=== PATIENT | female | born 1950 | race Caucasian/White ===

== ENCOUNTER → 2017-06-20 | Outpatient (CLI) | payer MEDICARE, BC ==
--- NOTE | 2017-06-20 07:52 | US ---
EXAMINATION TYPE: US abdomen complete DATE OF EXAM: 06/20/2017 COMPARISON: NONE CLINICAL HISTORY: R94.5 Abnormal liver function test. EXAM MEASUREMENTS: Liver Length: 13.3 cm Gallbladder Wall: Surgically absent CBD: 0.5 cm Spleen: 9.6 cm Right Kidney: 9.5 x 4.0 x 4.1 cm Pancreas: wnl Liver: wnl Gallbladder: Surgically absent Evidence for sonographic Crocker's sign: no CBD: wnl Spleen: wnl Right Kidney: inferior pole obscured by bowel gas Left Kidney: wnl Upper IVC: wnl Abd Aorta: wnl Limited views of the pancreas are normal. The liver is normal in size without evidence of biliary dilatation. The gallbladder is been removed. This common hepatic duct measures 4.9 mm. Both kidneys are normal. The spleen is normal in size. Visualized portions of aorta and IVC are normal. IMPRESSION: STATUS POST CHOLECYSTECTOMY.
== END | disposition home or self-care (01) ==
LOC: RADUSWWP 06:51
PROVIDERS: ATTEND Family Medicine
DX: R94.5 Abnormal results of liver function studies (principal); Z90.49 Acquired absence of other specified parts of digestive tract
CPT/HCPCS: 76700

== ENCOUNTER → 2017-07-07 | Outpatient (CLI) | payer MEDICARE, BC ==
[2017-07-07 13:11] LABS: Basophils % (A) 1 %; CH 29.3; CHCM 32.9; Eosinophils % (A) 0 %; HCT 38.9 % (34.0-46.0); HDW 2.43; HGB 12.2 gm/dL (11.4-16.0); Luc # (Auto) 0.14; Luc % (Auto) 3; Lymphocytes # (A) 0.9 k/uL (1.0-4.8); Lymphocytes % (A) 19 %; MCHC 31.2 g/dL (31.0-37.0); MCV 89.7 fL (80.0-100.0); Mean Platelet Volume 7.5; Monocytes # (A) 0.2 k/uL (0-1.0); Monocytes % (A) 5 %; Neutrophils # (A) 3.2 k/uL (1.3-7.7); Neutrophils % (A) 71 %; RBC 4.34 m/uL (3.80-5.40); RDW 14.3 % (11.5-15.5); WBC 4.4 k/uL (3.8-10.6); WBC (Perox) 4.72
[2017-07-07 13:14] LABS: Appearance,Urine Clear (Clear); Bilirubin,Urine Negative (Negative); Glucose,Urine (UA) Negative (Negative); Ketones,Urine Negative (Negative); Leukocyte Esterase,Urine Negative (Negative); Nitrite,Urine Negative (Negative); Protein,Urine Negative (Negative); Specific Gravity,Urine 1.005 (1.001-1.035); UA Billing (MACRO vs. MICRO) CHEM; Urobilinogen,Urine <2.0 mg/dL (<2.0)
[2017-07-07 13:19] LABS: Anion Gap 9 mmol/L; Blood Urea Nitrogen 20 mg/dL (7-17); Calcium 9.4 mg/dL (8.4-10.2); Carbon Dioxide 26 mmol/L (22-30); Chloride 103 mmol/L (98-107); Glucose 81 mg/dL (74-99); Non-African American GFR(MDRD) 53 (>60 ml/min/1.73 sqM); Partial Thromboplastin Time 27.4 sec (22.0-30.0); Potassium 4.4 mmol/L (3.5-5.1); Prothrombin Time 10.4 sec (9.0-12.0); Sodium 138 mmol/L (137-145)
--- NOTE | 2017-07-07 14:18 | XR ---
EXAMINATION TYPE: XR chest 2V DATE OF EXAM: 07/07/2017 COMPARISON: NONE HISTORY: Surgical planning. Clearance. TECHNIQUE: Frontal and lateral views of the chest are obtained. FINDINGS: There is no focal air space opacity, pleural effusion, or pneumothorax seen. The cardiac silhouette size is within normal limits. The osseous structures are intact. IMPRESSION: No acute cardiopulmonary process.
== END | disposition home or self-care (01) ==
LOC: LABPAT 12:29
PROVIDERS: ATTEND Orthopaedic Surgery Orthopaedic Surgery of the Spine
DX: Z01.818 Encounter for other preprocedural examination (principal); Z01.810 Encounter for preprocedural cardiovascular examination; M48.02 Spinal stenosis, cervical region; G95.9 Disease of spinal cord, unspecified; Z51.81 Encounter for therapeutic drug level monitoring; Z79.01 Long term (current) use of anticoagulants
CPT/HCPCS: 71020; 80048; 81003; 85025; 85610; 85730; 86850; 86900; 86901

== ENCOUNTER 2017-07-16 10:37 | Inpatient (IN) | payer MEDICARE, BC ==
[2017-07-09 12:33] VITALS: BMI 32.8
[~2017-07-16 10:37] MED LIST: BACITRACIN 50,000 UNIT, POLYMYXIN B 500,000 UNIT in SODIUM CHLORIDE 0.9% IRRIGATIO 1,00... IRRIGATION ONE; DEXAMETHASONE SOD PHOSPHATE 10 MG/ML 1 ML VIAL IV ONE; HYDROmorphone 1 MG/ML 1 ML SYRINGE IVP PRN; LACTATED RINGERS 1,000 ML IV SCH; ONDANSETRON 4 MG/2 ML VIAL IVP ONE; ceFAZolin 2 GM in SODIUM CHLORIDE 0.9% 100 ML IVPB ONE
[2017-07-16] MEDS ORDERED: LIDOCAINE 1% 20 ML VIAL (10MG/ML) FOR IV START INTRADERMA ONE (10:59)
[2017-07-16] MEDS ORDERED: ROCURONIUM BROMIDE 10 MG/ML 10 ML VIAL IV ONE (13:12)
[2017-07-16] MEDS ORDERED: NEOSTIGMINE 1 MG/ML 10 ML VIAL ONE (13:12)
[2017-07-16] MEDS ORDERED: DEXAMETHASONE SOD PHOS (MDV) 100 MG/10 ML VIAL ONE (13:12)
[2017-07-16] MEDS ORDERED: SUCCINYLCHOLINE CHLORIDE 100 MG/5 ML SYR IV ONE (13:12)
[2017-07-16] MEDS ORDERED: MIDAZOLAM 2 MG/2 ML VIAL ONE (13:12)
[2017-07-16] MEDS ORDERED: fentaNYL (PF) 50 MCG/ML 2 ML AMP ONE (13:12)
[2017-07-16] MEDS ORDERED: GLYCOPYRROLATE 0.2 MG/ML 2 ML VIAL ONE (13:12)
[2017-07-16] MEDS ORDERED: PROPOFOL 10 MG/ML 20 ML VIAL IV ONE (13:12)
[2017-07-16] MEDS ORDERED: LIDOCAINE 1% INJ 10MG/ML (20 ML MDV) ONE (13:12)
[2017-07-16] MEDS ORDERED: ePHEDrine SULFATE/0.9% NACL/PF 50 MG/5 ML SYRINGE IV ONE (13:12)
[2017-07-16] MEDS ORDERED: GELATIN SPONGE,ABSORB (LARGE) 1 EACH SPONGE TOPICAL ONE (13:42)
[2017-07-16] MEDS ORDERED: BUPIVACAINE (PF) 0.5% 30 ML VIAL SQ ONE (13:42)
[2017-07-16] MEDS ORDERED: THROMBIN (BOVINE) 5,000 UNIT VIAL TOPICAL ONE (13:42)
[2017-07-16] MEDS ORDERED: LACTATED RINGERS 1,000 ML IV ONE (14:01)
--- NOTE | 2017-07-16 14:14 | XR ---
EXAMINATION TYPE: XR cervical spine 1V DATE OF EXAM: 07/16/2017 COMPARISON: NONE HISTORY: Intraoperative localization TECHNIQUE: Single lateral views submitted FINDINGS: Suggestion of tracheal tube. Surgical metallic instrument seen along the disc interspace C4 -C5. Multilevel facet arthropathy and degenerative disc disease noted. Slight anterolisthesis of C3 o n C4 noted. IMPRESSION: 1. Intraoperative localization.
--- NOTE | 2017-07-16 15:28 | XR ---
EXAMINATION TYPE: XR cervical spine 1V DATE OF EXAM: 07/16/2017 COMPARISON: NONE HISTORY: Postop hardware TECHNIQUE: 1 view FINDINGS: Postsurgical changes somewhat limited assessment due to overlying soft tissue artifact but appears in near-anatomic alignment. Correlate for endotracheal tube. Prevertebral soft tissue structures within normal limits. IMPRESSION: 1. Postoperative change in near anatomic alignment.
[2017-07-16] MEDS ORDERED: HYDROmorphone 1 MG/ML 1 ML SYRINGE IVP PRN (15:30)
[2017-07-16] MEDS ORDERED: MAGNESIUM HYDROXIDE 2,400 MG/10 ML CUP PO PRN (15:30)
[2017-07-16] MEDS ORDERED: ONDANSETRON 4 MG/2 ML VIAL IVP PRN (15:31)
[2017-07-16] MEDS ORDERED: IPRATROPIUM BROMIDE 0.06% NASAL SPRAY (15 ML) NASAL PRN (15:32)
--- NOTE | 2017-07-16 15:41 | P.OP ---
Date of Procedure: 07/16/17 Preoperative Diagnosis: Cervical stenosis C4 5 C5 6 C6 7, anterolisthesis C4 5, severe disc degeneration C5 5 6 C6 7, herniated nucleus pulposis C4 5 C5 6 C6 7, neck pain, upper extremity radiculopathy Postoperative Diagnosis: Same Procedure(s) Performed: Implants: Anesthesia: GETA Pathology: none sent Condition: stable Disposition: PACU Indications for Procedure: Operative Findings: Description of Procedure: BRIEF OPERATIVE NOTE Preoperative Diagnosis: Cervical stenosis C4 5 C5 6 C6 7, spinal listhesis C4 5 , severe disc degeneration C5 6 C6 7, herniated nucleus was his C4 5 C5 6 C6 7, neck pain with upper extremity radiculopathy Postoperative Diagnosis: Same Procedure: Anterior cervical decompression with discectomy and fusion C4 5 C5 6 C6 7 Placement of interbody graft C4 5 C5 6 C6 7 Application of anterior cervical plate C4 5 6 7 Surgeon: Dr. Powell Animated Cartoons Painter: Jesus VILLATORO who is present throughout the entire the case persistence during positioning, dissection, exposure, visualization, and all crucial elements of the case as well as closure. Anesthesia: General anesthesia Estimated blood loss: Approximately 100 mL Complications: None apparent Components implanted: K2M Tenino anterior cervical plate system with 4 screws measuring 12 mm, and 3 interbody Vikos allograft bone graft and 1 mL of DBX bone putty, Disposition: To recovery room in good stable condition. OPERATIVE INDICATIONS The patient has had long-standing issues in their neck and upper extremities. she had severe disc degeneration with evidence of spider abdomen mildly with kyphosis and significant disc herniation with stenosis at multiple levels. Her findings correlated well with her neck and upper extremity symptoms. The patient has been through conservative treatment. She is not having any prolonged benefit despite aggressive conservative treatment. We discussed various treatment options including surgery, and the patient wishes to proceed with surgery We discussed the risk, patient's alternatives and benefits of surgery including but not limited to, risk of bleeding risk of infection, risk of need for further surgery, risk of decreased, loss of motion, muscle function , malunion nonunion, hardware failure, nerve damage, paralysis, heart attack, and . OPERATIVE SUMMARY After discussing all the risks, patient alternatives and benefits at length, the patient elected to proceed with surgical intervention, signed informed consent, and presented for their procedure. The patient was seen and examined in the preoperative holding area and the surgical site was marked. The patient was given antibiotics and brought to the operating room. The patient was positioned on the operating room table in a supine position being careful to pad any bony prominences and pressure points. The patient was sedated and intubated by anesthesia in standard fashion. Once the airway and C- spine were stabilized the patient's arms were padded and tucked at her side, with her shoulders gently taped. The head was placed in a donut pad with the neck in good neutral alignment and position. We were careful to maintain the patient's cervical spine and good neutral alignment and position throughout. The patient was prepped and draped in a normal standard fashion. An appropriate timeout and keystone protocol performed. We were able to proceed with the surgery. The local wound area was infiltrated with local anesthetic. An incision was made transversely approximately 2-1/2 cm over the appropriate levels Over C6. Dissection was taken down subcutaneously to the level of the platysma which was split in line with its fibers. Dissection was taken with a carotid approach, with the trachea and esophagus medial and the carotid sheath laterally. We dissected down to the anterior surface of the vertebral bodies From C4 to C7. Intraoperative x-ray was taken which showed a marker at the appropriate level At C4 5. With the appropriate level positively confirmed, we were able to proceed with discectomy at the appropriate levels First at C6 7 than at C5 6 bed C4 5. All of the operative levels were exposed appropriately. The patient had all their twitches back, and there was no evidence of recurrent laryngeal issue. The wound was copiously irrigated and suctioned dry as had been done periodically throughout the case. At the appropriate level/levels, I established an annulotomy with an 11 blade scalpel. A discectomy was performed with a combination of pituitary rongeurs, curettes , a high-speed bur, and Kerrison rongeurs. the patient had severe disc degeneration particularly at C5 6 and C6 7 with near-complete disc height loss. I was able get good opening of the space and discectomy to expose posterior longitudinal ligament The posterior longitudinal ligament was taken down as were any posterior osteophytes. This gave good central and bilateral foraminal decompression. the patient had had severe stenosis which was remedied with decompression. There is no evidence of any dural tear or leak. The endplates were prepared with a high-speed bur. With the endplates in good parallel position, I was able to size for the appropriate size interbody graft. The wound was irrigated and suctioned dry the graft was prepared and malleted into position. It had good alignment and position with the anterior surface flush with the anterior surface of the vertebral bodies. This was done similarly the appropriate levels First at C6 7 than at C5 6 than at C4 5. With the grafts intact, I was able to measure and contour and appropriate sized plate. The plate was positioned at the midline over the appropriate levels. Screw holes were established with a hand drill and drill guide. The patient has relatively small stature and we had to use a plate where the screw alignment was able to match up well with the most cephalad and most caudad vertebral bodies. The plates did not have good alignment with the vertebral bodies at C5 and C6. I was able place 2 screws at C4 and C7 in good alignment and good position with excellent bony purchase. Screws were placed in good alignment and position with excellent bony purchase. They were seated under the locking device. The construct was checked and found to be stable. Intraoperative x- ray was taken which showed good alignment and position of the implants at the appropriate levels From C4 to C7. There was no evidence of any dural tear or leak. Good hemostasis was maintained. The wound was copiously irrigated and suctioned dry as had been done periodically throughout the case. The platysma was closed with absorbable suture. The subcutaneous tissue was closed. The subcuticular tissue was closed with absorbable suture. The wound was cleaned and dried and dressed appropriately. A soft cervical collar was placed appropriately. The patient was woken up by anesthesia, extubated, transferred back gently to their hospital bed and brought to the recovery room in good stable condition. The patient will be admitted to the hospital for appropriate postoperative care , medical management and monitoring. We will continue to follow them closely about the postoperative course.
[2017-07-16] MEDS: DIAZEPAM 5 MG TAB PO PRN (16:51)
[2017-07-16] MEDS: ceFAZolin 2 GM in SODIUM CHLORIDE 0.9% 100 ML IVPB SCH (17:19)
[2017-07-16] MEDS: BALSALAZIDE DISODIUM 750 MG CAPSULE PO SCH ×2 (17:24→22:46)
[2017-07-16] MEDS: HYDROmorphone 1 MG/ML 1 ML SYRINGE IVP PRN ×2 (18:20→21:37)
[2017-07-16] MEDS: SODIUM CHLORIDE 0.9% 1,000 ML IV SCH (19:25)
[2017-07-16] MEDS: busPIRone HCl 10 MG TAB PO SCH (19:36)
[2017-07-16] MEDS: LISINOPRIL 20 MG TAB PO SCH (19:37)
[2017-07-16] MEDS: cycloSPORINE 0.05% OPHTH 0.4 ML DROPERETTE BOTH EYES SCH (19:38)
[2017-07-16] MEDS: BENZOCAINE/MENTHOL LOZENG 1 EACH LOZENGE MUCOUS MEM PRN ×2 (19:39→22:56)
[2017-07-16] MEDS: traMADol 50 MG TAB PO SCH (20:49)
[2017-07-16] MEDS ORDERED: FLUTICASONE 50MCG/SPRAY NASAL 16GM EA NOSTRIL SCH (21:00)
[2017-07-16] MEDS ORDERED: ZOLPIDEM 5 MG TAB PO SCH (21:00)
[2017-07-17] MEDS: ceFAZolin 2 GM in SODIUM CHLORIDE 0.9% 100 ML IVPB SCH (00:17)
[2017-07-17] MEDS: HYDROmorphone 1 MG/ML 1 ML SYRINGE IVP PRN ×2 (01:18→05:52)
[2017-07-17 03:26] VITALS: RESP 17
[2017-07-17] MEDS: BENZOCAINE/MENTHOL LOZENG 1 EACH LOZENGE MUCOUS MEM PRN (04:18)
[2017-07-17] MEDS: SODIUM CHLORIDE 0.9% 1,000 ML IV SCH (05:52)
[2017-07-17] MEDS ORDERED: PANTOPRAZOLE 40 MG TABLET PO SCH (07:30)
[2017-07-17 07:43] VITALS: BP 120/65; PULSE 82; TEMP 98.1
[2017-07-17] MEDS: HYDROcodone/APAP 5-325MG 1 EACH TAB PO PRN ×2 (08:12→12:29)
[2017-07-17] MEDS: traMADol 50 MG TAB PO SCH (08:13)
[2017-07-17] MEDS: BALSALAZIDE DISODIUM 750 MG CAPSULE PO SCH (08:14)
[2017-07-17] MEDS: busPIRone HCl 10 MG TAB PO SCH (08:14)
[2017-07-17] MEDS: cycloSPORINE 0.05% OPHTH 0.4 ML DROPERETTE BOTH EYES SCH (08:15)
[2017-07-17] MEDS: LISINOPRIL 20 MG TAB PO SCH (08:15)
[2017-07-17] MEDS ORDERED: SENNOSIDES-DOCUSATE SODIUM 1 EACH TAB PO SCH (09:00)
[2017-07-17] MEDS ORDERED: ESCITALOPRAM 10 MG TAB PO SCH (09:00)
[2017-07-17] MEDS ORDERED: LORATADINE 10 MG TAB PO SCH (09:00)
--- NOTE | 2017-07-17 09:29 | P.DS ---
Providers Date of admission: 07/16/17 10:37 Attending physician: Brian Powell Primary care physician: Samantha Guerrero MD Hospital Course: The patient presented on the day of admission as per his operative note. She underwent anterior cervical discectomy and fusion at C4 5 C5 6 C6 7 for severe stenosis with myelopathy and radiculopathy. She feels that she is making good improvement already and has improvement in her upper extremities bilaterally. Physical Exam The incision site is clean dry and intact. There is no erythema no drainage. There is no purulence no evidence of infection. Her neck is soft and supple. She is in a soft collar and is moving appropriately. Abdomen soft and nontender. Chest has good excursion with deep inspiration and expiration. The patient has active and passive range of motion intact at the upper and lower extremities. There is no acute change in neurologic status. 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 The patient is making good progress thus far and feels that she has had improvement in her upper extremity is already. The patient has been making good progress postoperatively. They have completed the prophylactic antibiotics without any signs or symptoms of infection. The patient has been able to advance their diet, and is tolerating diet adequately. The pain was initially controlled with IV medications and is now controlled appropriately with oral medications. The patient has been able to increase their mobilization. I would like patient to have a hard cervical collar to be worn when she is doing activities and we will provide a prescription for this for her. Otherwise she should be in her soft collar when she is resting sitting or in bed. The patient has progressed appropriately. I think they are in good stable condition for discharge today. They will be sent home with appropriate prescriptions. I answered their questions to the best of my ability in a language that they can understand and they are agreeable with the plan. They will follow up as directed in approximately 2 weeks or sooner if she is having any problems. Patient Condition at Discharge: Good Plan - Discharge Summary New Discharge Prescriptions: No Action Enalapril Maleate [Vasotec] 10 mg PO BID Omeprazole [PriLOSEC] 20 mg PO AC-BRKFST Desloratadine [Clarinex] 5 mg PO DAILY Ipratropium [place] 0.06%Nasal [Atrovent Nasal] 2 spray NASAL BID PRN PRN Reason: Allergy Symptoms Ciclesonide [Omnaris] 12.5 gm NS HS cycloSPORINE [Restasis] 1 drop BOTH EYES BID Mirvaso 1 applicate TOPICAL QAM Finacea 1 applicate TOPICAL HS traMADol HCL [Ultram] 50 mg PO BID busPIRone HCl [Buspar] 10 mg PO BID Escitalopram [Lexapro] 10 mg PO DAILY Zolpidem Tartrate [Ambien] 5 mg PO HS Mesalamine [Lialda] 1.2 gm PO BID Alclometasone Dipropionate 1 applic TOPICAL DAILY Discharge Medication List Ciclesonide [Omnaris] 12.5 gm NS HS 10/26/15 [History] Desloratadine [Clarinex] 5 mg PO DAILY 10/26/15 [History] Enalapril Maleate [Vasotec] 10 mg PO BID 10/26/15 [History] Finacea 1 applicate TOPICAL HS 10/26/15 [History] Ipratropium [place] 0.06%Nasal [Atrovent Nasal] 2 spray NASAL BID PRN 10/26/15 [ History] Mirvaso 1 applicate TOPICAL QAM 10/26/15 [History] Omeprazole [PriLOSEC] 20 mg PO AC-BRKFST 10/26/15 [History] cycloSPORINE [Restasis] 1 drop BOTH EYES BID 10/26/15 [History] Alclometasone Dipropionate 1 applic TOPICAL DAILY 07/07/17 [History] Escitalopram [Lexapro] 10 mg PO DAILY 07/07/17 [History] Mesalamine [Lialda] 1.2 gm PO BID 07/07/17 [History] Zolpidem Tartrate [Ambien] 5 mg PO HS 07/07/17 [History] busPIRone HCl [Buspar] 10 mg PO BID 07/07/17 [History] traMADol HCL [Ultram] 50 mg PO BID 07/07/17 [History]
[2017-07-17] MEDS: DIAZEPAM 5 MG TAB PO PRN (10:20)
== END 2017-07-17 12:45 | disposition home or self-care (01) | DRG 472 ==
LOC: 2ORMAIN 10:37 → 3SUR 15:50
PROVIDERS: ADMIT Orthopaedic Surgery Orthopaedic Surgery of the Spine; ATTEND Orthopaedic Surgery Orthopaedic Surgery of the Spine
PROC: 0RB30ZZ Excision of Cervical Vertebral Disc, Open Approach (ICD-10-PCS; 2017-07-16)
PROC: 0RG20K0 Fusion of 2 or more Cervical Vertebral Joints with Nonautologous Tissue Substitute, Anterior Approach, Anterior Column, Open Approach (ICD-10-PCS; principal; 2017-07-16 12:30)
DX: M50.021 Cervical disc disorder at C4-C5 level with myelopathy (principal); K51.90 Ulcerative colitis, unspecified, without complications; M35.00 Sjogren syndrome, unspecified; I10 Essential (primary) hypertension; M48.02 Spinal stenosis, cervical region; M43.12 Spondylolisthesis, cervical region; F41.9 Anxiety disorder, unspecified; M19.91 Primary osteoarthritis, unspecified site; E78.5 Hyperlipidemia, unspecified; F32.9 Major depressive disorder, single episode, unspecified; Z79.899 Other long term (current) drug therapy; Z91.048 Other nonmedicinal substance allergy status; Z98.1 Arthrodesis status; Z90.49 Acquired absence of other specified parts of digestive tract; Z98.42 Cataract extraction status, left eye; Z98.41 Cataract extraction status, right eye; Z88.2 Allergy status to sulfonamides
CPT/HCPCS: 72020; 86850; 86900; 86901

== ENCOUNTER → 2018-01-08 | Outpatient (CLI) | payer MEDICARE, BC ==
[2018-01-08 09:15] LABS: Basophils % (A) 0 %; Eosinophils # (A) 0.4 k/uL (0-0.7); Eosinophils % (A) 8 %; HCT 38.6 % (34.0-46.0); HGB 12.3 gm/dL (11.4-16.0); Lymphocytes % (A) 21 %; MCH 27.9 pg (25.0-35.0); MCV 87.3 fL (80.0-100.0); Mean Platelet Volume 7.3; Monocytes # (A) 0.3 k/uL (0-1.0); Monocytes % (A) 5 %; Neutrophils # (A) 3.2 k/uL (1.3-7.7); Neutrophils % (A) 64 %; Platelet Count 263 k/uL (150-450); RBC 4.42 m/uL (3.80-5.40); RDW 13.8 % (11.5-15.5)
[2018-01-08 09:52] LABS: Anion Gap 12 mmol/L; Blood Urea Nitrogen 17 mg/dL (7-17); Calcium 9.5 mg/dL (8.4-10.2); Carbon Dioxide 25 mmol/L (22-30); Chloride 105 mmol/L (98-107); Glucose 89 mg/dL (74-99); Potassium 4.3 mmol/L (3.5-5.1); Sodium 142 mmol/L (137-145)
== END | disposition home or self-care (01) ==
LOC: LABWHC1 08:44
PROVIDERS: ATTEND Family Medicine
DX: Z01.812 Encounter for preprocedural laboratory examination (principal); N18.3 Chronic kidney disease, stage 3 (moderate)
CPT/HCPCS: 36415; 80048; 85025

== ENCOUNTER → 2018-10-28 | Outpatient (CLI) | payer MEDICARE, BC ==
[2018-10-28 11:33] LABS: Basophils % (A) 0 %; Eosinophils # (A) 0.4 k/uL (0-0.7); Eosinophils % (A) 9 %; HCT 38.1 % (34.0-46.0); HGB 12.1 gm/dL (11.4-16.0); Lymphocytes # (A) 0.6 k/uL (1.0-4.8); Lymphocytes % (A) 15 %; MCH 28.7 pg (25.0-35.0); MCHC 31.9 g/dL (31.0-37.0); MCV 90.1 fL (80.0-100.0); Mean Platelet Volume 6.5; Monocytes # (A) 0.1 k/uL (0-1.0); Monocytes % (A) 3 %; Neutrophils # (A) 2.8 k/uL (1.3-7.7); Neutrophils % (A) 71 %; Platelet Count 266 k/uL (150-450); RBC 4.22 m/uL (3.80-5.40); RDW 14.1 % (11.5-15.5); WBC 3.9 k/uL (3.8-10.6)
[2018-10-28 16:05] LABS: Vitamin D 25 Hydroxy 29.3 ng/mL (30.0-100.0)
[2018-10-28 16:08] LABS: Albumin 3.8 g/dL (3.80-4.90); Albumin/Globulin Ratio 1.31 (1.20-2.10); Anion Gap 5.2 mmol/L (4.00-12.00); Carbon Dioxide 27.8 mmol/L (21.6-31.8); Globulin 2.9 g/dL (2.1-3.7); LDL Cholesterol,Calculated 98.4 mg/dL (0.0-131.0); Magnesium 1.7 mg/dL (1.5-2.4); Potassium 4.4 mmol/L (3.5-5.5); Total Bilirubin 0.6 mg/dL (0.3-1.2); Total Protein 6.7 g/dL (6.2-8.2); Uric Acid 7.7 mg/dL (2.9-7.7); VLDL Calculation 10.6 mg/dL (5.00-40.00)
[2018-10-28 16:17] LABS: T4, Free (Free Thyroxine) 1.2 ng/dL (0.80-1.80)
[2018-10-28 17:37] LABS: Parathyroid Hormone Intact 55.8 pg/mL (14.0-72.0)
== END | disposition home or self-care (01) ==
LOC: LABWHC1 10:23
PROVIDERS: ATTEND Family Medicine
DX: N18.3 Chronic kidney disease, stage 3 (moderate) (principal); E78.5 Hyperlipidemia, unspecified; E04.1 Nontoxic single thyroid nodule
CPT/HCPCS: 36415; 80053; 80061; 82306; 83735; 83970; 84100; 84439; 84443; 84550; 85025

== ENCOUNTER → 2018-11-03 | Outpatient (CLI) | payer MEDICARE, BC ==
--- NOTE | 2018-11-03 13:51 | US ---
EXAMINATION TYPE: US thyroid st tissue head/neck DATE OF EXAM: 11/03/2018 COMPARISON: NONE CLINICAL HISTORY: E04.1 LEFT THYROID NODULE. Neck swelling, difficulty swallowing, history of thyroid FNA GLAND SIZE: Right Lobe: 4.1 x 1.3 x 1.6 cm Overall Parenchyma: homogenous Left Lobe: 3.7 x 1.4 x 1.4 cm Overall Parenchyma: homogeneous Isthmus Thickness: 0.2 cm NODULES RIGHT: # of nodules measured on right: 0 LEFT: # of nodules measured on left: 1 1. 0.4 X 0.3 x 0.5 cm hypoechoic mixed nodule at the mid pole with well-defined margins. This nodul e is wider than tall and shows no intranodular vascularity. Prior size: no previous ISTHMUS: # of nodules measured in the isthmus: 0 Bilateral neck scanned, no evidence of lymphadenopathy. Homogeneous normal-sized thyroid is present with small solid and cystic nodule left thyroid lobe note d. IMPRESSION: Normal-sized thyroid without greater than 1 cm solid or cystic nodule identified.
== END | disposition home or self-care (01) ==
LOC: RADUSWWP 09:43
PROVIDERS: ATTEND Family Medicine
DX: E04.1 Nontoxic single thyroid nodule (principal)
CPT/HCPCS: 76536

== ENCOUNTER → 2019-03-08 | Outpatient (CLI) | payer MEDICARE, BC ==
--- NOTE | 2019-03-08 08:52 | FL ---
EXAMINATION TYPE: FL barium swallow DATE OF EXAM: 03/08/2019 CLINICAL HISTORY: Dysphagia, difficulty swallowing since August of mostly thicker solid foods in the upper esophagus near thoracic inlet TECHNIQUE: A double contrast esophagram is performed utilizing air and barium. A total of 34 second s of fluoroscopic time was utilized during procedure. 29 spot images are saved. COMPARISON: None FINDINGS: Anterior fusion plate mid to lower cervical spine is identified. The esophagus shows satisf actory motility and emptying into the stomach. No evidence of diverticulum or stricture noted. No trotter spicious mass seen with particular attention to the proximal esophagus at area of patient concern. Sm all sliding-type hiatal hernia incidentally seen towards end of study. No significant gastroesophagea l reflux was seen during real time performance of this study. Cholecystectomy clips are seen. IMPRESSION: No significant abnormality is seen to account for patient's symptoms of upper esophageal dysphagia.
--- NOTE | 2019-03-08 08:53 | CT ---
EXAMINATION TYPE: CT sinus wo con DATE OF EXAM: 03/08/2019 COMPARISON: NONE HISTORY: Chronic sinusitis per order. Sinus pressure for [address] DLP: 596.5 mGycm. Automated Exposure Control for Dose Reduction was Utilized. TECHNIQUE: CT scan of the sinuses is performed without contrast, axial images are obtained, coronal r eformatted images are also reviewed. FINDINGS: The paranasal sinuses including the frontal, ethmoid, sphenoid, and maxillary sinuses bila terally are well-aerated without abnormal opacification. The ostiomeatal complex is patent bilateral ly on the coronal images. Visualized portion of mastoid air cells show no abnormal opacification. The bilateral lenses are not well visualized suggesting prior cataract surgery. Visualized brain parenchyma is unremarkable. IMPRESSION: No significant acute or chronic paranasal sinus disease.
== END | disposition home or self-care (01) ==
LOC: RADCTMAIN 08:09
PROVIDERS: ATTEND Otolaryngology
DX: R13.10 Dysphagia, unspecified (principal); J32.9 Chronic sinusitis, unspecified
CPT/HCPCS: 70486; 74220

== ENCOUNTER → 2019-05-04 | Outpatient (CLI) | payer MEDICARE, BC ==
[2019-05-04 11:34] LABS: Basophils % (A) 0 %; Eosinophils # (A) 0.1 k/uL (0-0.7); Eosinophils % (A) 4 %; Lymphocytes # (A) 0.6 k/uL (1.0-4.8); Lymphocytes % (A) 19 %; MCH 27.6 pg (25.0-35.0); MCHC 31.5 g/dL (31.0-37.0); MCV 87.8 fL (80.0-100.0); Mean Platelet Volume 7.2; Monocytes # (A) 0.1 k/uL (0-1.0); Monocytes % (A) 3 %; Neutrophils # (A) 2.3 k/uL (1.3-7.7); Neutrophils % (A) 72 %; Platelet Count 256 k/uL (150-450); RBC 4.33 m/uL (3.80-5.40); RDW 14.6 % (11.5-15.5); WBC 3.1 k/uL (3.8-10.6)
[2019-05-04 16:19] LABS: African American GFR (CKD) 67.5 (60.0-200.0); Albumin/Globulin Ratio 1.21 (1.60-3.17); Anion Gap 7.3 mmol/L (4.00-12.00); Calcium 9.3 mg/dL (8.7-10.3); Carbon Dioxide 27.7 mmol/L (21.6-31.8); Globulin 3.3 g/dL (1.6-3.3); LDL Cholesterol,Calculated 93.6 mg/dL (0.0-131.0); Magnesium 1.8 mg/dL (1.5-2.4); Phosphorus 4.3 mg/dL (2.4-5.1); Potassium 4.3 mmol/L (3.5-5.5); Total Bilirubin 0.5 mg/dL (0.3-1.2); Total Protein 7.3 g/dL (6.2-8.2); VLDL Calculation 15.4 mg/dL (5.00-40.00)
== END | disposition home or self-care (01) ==
LOC: LABWHC1 10:28
PROVIDERS: ATTEND Family Medicine
DX: N18.3 Chronic kidney disease, stage 3 (moderate) (principal); E78.5 Hyperlipidemia, unspecified
CPT/HCPCS: 36415; 80053; 80061; 82043; 82306; 82570; 83735; 84100; 85025

== ENCOUNTER → 2019-12-01 | Outpatient (CLI) | payer MEDICARE, BC ==
--- NOTE | 2019-12-01 15:02 | US ---
EXAMINATION TYPE: US thyroid st tissue head/neck DATE OF EXAM: 12/01/2019 COMPARISON: NONE CLINICAL HISTORY: E04.1 left thyroid nodule. follow up thyroid nodule, not on thyroid meds GLAND SIZE: Right Lobe: 3.9 x 1.5 x 1.0 cm Overall Parenchyma: homogenous Left Lobe: 3.7 x 1.6 x 1.2 cm Overall Parenchyma: homogeneous Isthmus Thickness: 0.2 cm NODULES RIGHT: # of nodules measured on right: 0 LEFT: # of nodules measured on left: 1 1. 0.3 X 0.2 x 0.1 cm mixed nodule at the mid pole with well-defined margins. This nodule is wider than tall and shows no intranodular vascularity. Prior size: 0.4 x 0.3 x 0.5 cm ISTHMUS: # of nodules measured in the isthmus: 1 1. 0.6 X 0.6 x 0.3 cm isoechoic nodule at the right lateral pole with well-defined margins. This n odule is wider than tall and shows intranodular vascularity. Prior size: No prior Bilateral neck scanned, no evidence of lymphadenopathy. IMPRESSION: 1. Bilateral subcentimeter thyroid nodules.
== END | disposition home or self-care (01) ==
LOC: RADUSWWP 13:58
PROVIDERS: ATTEND Family Medicine
DX: E04.2 Nontoxic multinodular goiter (principal)
CPT/HCPCS: 76536

== ENCOUNTER → 2020-01-11 | Outpatient (CLI) | payer MEDICARE, BC ==
--- NOTE | 2020-01-11 08:47 | US ---
EXAMINATION TYPE: US abdomen complete DATE OF EXAM: 01/11/2020 COMPARISON: None CLINICAL HISTORY: 69-year-old female R94.5 Abn liver function, R16.1 splenomegaly. TECHNIQUE: Multiple sonographic images of the abdomen are obtained. FINDINGS: EXAM MEASUREMENTS: Liver Length: 10.9 cm Gallbladder: Surgically absent CBD: 0.3 cm Spleen: 11.6 cm Right Kidney: 9.8 x 4.5 x 4.5 cm Left Kidney: 9.3 x 4.4 x 4.6 cm [employer] Supervisor notes: Lower pole of both kidneys partially obscured by bowel. Pancreas: visualized portions wnl. The majority is visualized and shows no gross abnormality. Liver: wnl Gallbladder: Surgically absent CBD: wnl Spleen: wnl Kidneys: No hydronephrosis on either side. Lower poles are partially obscured by bowel gas. Upper IVC : wnl Abd Aorta: wnl IMPRESSION: Status post post cholecystectomy. No biliary ductal dilatation. Spleen measures 11.6 cm, within normal limits.
== END | disposition home or self-care (01) ==
LOC: RADUSWWP 07:28
PROVIDERS: ATTEND Internal Medicine Hematology & Oncology
DX: R16.1 Splenomegaly, not elsewhere classified (principal); R94.5 Abnormal results of liver function studies; Z90.49 Acquired absence of other specified parts of digestive tract; Z88.2 Allergy status to sulfonamides
CPT/HCPCS: 76700

== ENCOUNTER → 2020-02-03 | Outpatient (CLI) | payer MEDICARE, BC ==
--- NOTE | 2020-02-03 11:53 | XR ---
EXAMINATION TYPE: XR bone survey complete DATE OF EXAM: 02/03/2020 COMPARISON: NONE HISTORY: Myelodysplasia Bony calvarium : 2 views of the bony calvarium demonstrate. Normal appearance Spine: Two views of the cervical, thoracic and lumbar spines are submitted. Postsurgical change invo lving the lumbar spine with scoliotic curvature. Postsurgical change involving the cervical spine wit h loss of normal lordosis. Multilevel facet arthropathy seen. There is an anterolisthesis of C3 on C4 . Round lucency involving the odontoid noted. Thoracic spine demonstrates multilevel degenerative dis c disease with chronic appearing endplate deformity in the mid to upper thoracic spine. No destructiv e changes. Chronic appearing superior endplate deformity of L2. PELVIS: Single view of the pelvis demonstrates. Postsurgical change lumbar spine. Arthropathy of the hips. No definitive lesions identified. Bowel gas overlying the iliac bones and sacrum bilaterally. UPPER EXTREMITIES: Two views of the upper extremities. No evidence of bone lesion LOWER EXTREMITIES: 2 views of the lower extremities. Arthropathy with no destructive lesions IMPRESSION: 1. Round lucent area overlying the odontoid is felt to BE most likely artifactual but could be correl ated with dedicated cervical spine series.
== END | disposition home or self-care (01) ==
LOC: RADXRMAIN 10:41
PROVIDERS: ATTEND Internal Medicine Hematology & Oncology
DX: D46.Z Other myelodysplastic syndromes (principal); D50.8 Other iron deficiency anemias; I10 Essential (primary) hypertension; Z87.01 Personal history of pneumonia (recurrent)
CPT/HCPCS: 77075

== ENCOUNTER → 2020-05-09 | Outpatient (CLI) | payer MEDICARE, BC ==
--- NOTE | 2020-05-09 12:31 | XR ---
Left elbow HISTORY: Lump posterior left elbow for 3 weeks, pain, left elbow bursitis 3 views the left elbow There is a lucency present at the level the radial head. Cortical irregularity is present at this lev el. Alignment and joint spaces are maintained. Soft tissue swelling is noted at the posterior elbow. No evident elbow joint effusion. impression: Olecranon bursitis. Findings at the radial head may be due to degenerative change or poss ibly remote trauma.
== END | disposition home or self-care (01) ==
LOC: RADXRMAIN 10:24
PROVIDERS: ATTEND Family Medicine
DX: M70.22 Olecranon bursitis, left elbow (principal)

== ENCOUNTER → 2022-02-21 | Outpatient (CLI) | payer MEDICARE, BC ==
[2022-02-21 10:37] VITALS: BP 125/68; PULSE 76; RESP 18; TEMP 98.4
--- NOTE | 2022-02-21 12:04 | P.CON ---
Consult Note - . Consult date: 02/21/22 Assessment/Plan:: HISTORY OF PRESENT ILLNESS: 71 yr old female as a referral from Dr Powell presents today with neck pain due to cervical DDD, spondylosis and facet arthropathy for evaluation. Patient states she has neck pain in the lower aspects of his cervical spine which is 2/10 in intensity, dull, achy in character with radiation of pain to her shoulders bilaterally as well has down the thoracic spine. 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 Pain is provoked with flexion and extension of the neck as well as lifting with the upper extremities. Pain is relieved with medications ([place] from Dr. Mcgarry), topical Voltaren gel, heat, physical therapy in January 2022, home stretching regimen which was too painful so she stopped, massage therapy integrated with physical therapy and rest. Awaiting cervical MRI report from [facility]. Nurse contacted Dr Powell's office whom also does not have the imaging results. Pt will be scheduled for a followup appt when the records are received. PMH: HTN, Hyperlipidemia, GERD, OA, MDD PSH: Cervical fusion (2016), Lumbar decompression/hardware/hardware removal/fusion (2015), Cholecystectomy, BL Carpal Tunnel Syndrome, BL Cataracts, R RCT Repair SH: No Tobacco Use. Rare ETOH use. No illicit drug use. FH: Father- Bladder CA/ at age 79. Mother- Dementia/ at age 93. Brother- No reported history. Sister- No reported history. All: Sulfa Meds: See list REVIEW OF ORGAN SYSTEMS: CONSTITUTIONAL: No fevers or chills. No recent weight loss. HEENT: No visual acuity loss, eye pain, difficulties with hearing. No nosebleeds. No difficulty swallowing. RESPIRATORY: Denies any troubles with breathing or dyspnea on exertion. CARDIOVASCULAR: Denies any chest pain, palpitations, or recent heart attacks. GASTROINTESTINAL: Denies fatty food intolerance. Has change in bowel habits and gas bloat. GENITOURINARY: Denies any blood in urine. Has increased urinary frequency. NEUROLOGICAL: + numbness and tingling along the distal extremities. No seizure disorders or headaches. MUSCULOSKELETAL: + back pain SKIN: No skin cancer. No rash. PSYCHIATRIC: Denies current depression or suicidal thoughts. ENDOCRINE: Denies current thyroid disorders. Denies any blood sugar glucose intolerance. HEME/LYMPHATIC: Denies any lumps and bumps around the neck. History of deep venous thrombosis. ALLERGY/IMMUNOLOGY: No immunoglobulin therapy. No immune deficiencies. BREAST: Denies current breast lumps, pain or nipple discharge. Physical Examinations : Constitutional : Cooperative , not in acute distress . HEENT: Neck supple. No Lymphadenopathy. Normal thyroid size . Eyes no ptosis , no icterus, no photophobia . Hearing intact. Normal oropharynx. No Thrush. Respiratory : Chest clear to auscultations bilaterally. No wheezing. No rhonchi. Cardiovascular : Regular rate and rhythm , S1 / S2. No S3 . No S4. Gastrointestinal : Abdomen soft. No tenderness. Bowel sounds x 4. No organomegaly . Genitourinary : Deferred. Neurologic : Cranial nerve II to XII intact. No focal neurological deficits. Psychiatric : alert & oriented x 3. Matching mood & appropriate affect. Judgment & insight intact. Lymphatic No Lymphadenopathy. Musculoskeletal : Cervical Spine Motor strength in the deltoid and biceps: Normal right side. Normal Left side Motor strength biceps and the wrist extensors: Normal right side . Normal left side Motor strength in the triceps muscle: Normal right side. Normal left side Deep tendon reflexes: Normal at the biceps. Normal at Brachioradialis. Normal at triceps Cervical facet loading test: positive bilaterally Spurling test: positive bilaterally Neck distraction test: positive bilaterally Bella sign: positive bilaterally Lumbar spine Motor strength lower extremities ,thigh and legs 5/5 Right side , 5/5 Left side Deep tendon reflexes : Normal Knee Jerk. Normal Ankle Jerk Vertebral body tenderness over Lumbar facet Loading Test: positive Right / positive Left Range of motion of the lumbar spine Flexion 30 degrees, extension 10 degrees Straight Leg Raise test: Left/ Right positive at degree Adrian test: positive right / positive left. Severe tenderness over the Sacroiliac joint on the Right / Left sides Gaenslen test: positive bilaterally Seated flexion test: positive bilaterally. Imaging: Awaiting report of the MRI of the cervical spine from [facility]. Assessment/ Plan : It appears pt may benefit from either a AUDREY or facet block of the medial branches, though cervical spine imaging is necessary for any procedures to be ordered. Currently, pt is managing her pain with medications received from Dr Mcgarry. Will continue. All questions answered. I have spent greater than 50 minutes on patient care today. Dr Chandler was available by phone for the evaluation of this patient. The time was used to review the medical records including relevant urine studies and Prescription history (MAPs), review of the available imaging, evaluation and examination of the patient, coordination of care with the medical staff and if applicable referring physicians, as well as creation of the medical record PQRS Measure Charge Sheet Mode of Arrival: Ambulatory - Pain Location Neck Non-Pharmacological Interventions: Heat, Home Exercise, Inactivity, Physical Therapy, Stretching Pharmacological Interventions: PRN Medication, Topical Medication PQRS Narrative: Smoking Status Never smoker Blood Pressure 125/68 Pain Intensity [Neck] 2 Scale Used Numeric (1 - 10) Hx Alcohol Use (MH) No Home Medications: Ambulatory Orders Ciclesonide [Omnaris] 12.5 gm NS HS 10/26/15 Desloratadine [Clarinex] 5 mg PO DAILY 10/26/15 Enalapril Maleate [Vasotec] 10 mg PO BID 10/26/15 Finacea 1 applicate TOPICAL HS 10/26/15 Ipratropium [place] 0.06%Nasal [Atrovent Nasal] 2 spray NASAL BID PRN 10/26/15 Mirvaso 1 applicate TOPICAL QAM 10/26/15 Omeprazole [PriLOSEC] 20 mg PO AC-BRKFST 10/26/15 cycloSPORINE [Restasis] 1 drop BOTH EYES BID 10/26/15 Alclometasone Dipropionate 1 applic TOPICAL DAILY 07/07/17 Escitalopram [Lexapro] 10 mg PO DAILY 07/07/17 Mesalamine [Lialda] 1.2 gm PO BID 07/07/17 Zolpidem Tartrate [Ambien] 5 mg PO HS 07/07/17 busPIRone HCl [Buspar] 10 mg PO BID 07/07/17 traMADol HCL [Ultram] 50 mg PO BID 07/07/17 HYDROcodone/APAP 5-325MG [[place] 5-325] 1 tab PO Q6HR PRN #90 tab 07/17/17
== END | disposition home or self-care (01) ==
LOC: PNWHC3 09:43
PROVIDERS: ATTEND Specialist
DX: M54.12 Radiculopathy, cervical region (principal)
CPT/HCPCS: 99211

== ENCOUNTER → 2022-03-06 | Outpatient (CLI) | payer MEDICARE, BC ==
[2022-03-06 09:11] VITALS: BP 117/77; PULSE 74; RESP 18; TEMP 98.4
--- NOTE | 2022-03-06 09:16 | P.CON ---
Consult Note - . Consult date: 03/06/22 Assessment/Plan:: HISTORY OF PRESENT ILLNESS: 71 yr old female as a referral from Dr Powell presents today with cervical pain for the last 6 months secondary to disc bulges, severe neuroforaminal stenoses and facet arthropathy for evaluation. Patient states her neck pain is localized to the mid to lower aspect of her cervical spine, constant, stiff, achy in character with radiation of sharp pain to the posterior aspects of the shoulders bilaterally. Pain is provoked with cold weather and flexion of the cervical spine. Pain is relieved with medications ([place]othy, Aleve), topicals, heat, physical therapy in December and January 2022 which made it worse, massage therapy integrated with physical therapy, home stretching regimen, sitting reclining and rest. PMH: HTN PSH: Cervical Fusion, Lumbar Fusion, BL RCT Repair, BL Cataract Resection, BL Carpal Tunnel Release, Cholecystectomy SH: Negative x 3. Lives alone. FH: Father- DM All: Sulfa Meds: See list REVIEW OF ORGAN SYSTEMS: CONSTITUTIONAL: No fevers or chills. No recent weight loss. HEENT: No visual acuity loss, eye pain, difficulties with hearing. No nosebleeds. No difficulty swallowing. RESPIRATORY: Denies any troubles with breathing or dyspnea on exertion. CARDIOVASCULAR: Denies any chest pain, palpitations, or recent heart attacks. GASTROINTESTINAL: Denies fatty food intolerance. Has change in bowel habits and gas bloat. GENITOURINARY: Denies any blood in urine. Has increased urinary frequency. NEUROLOGICAL: + numbness and tingling along the distal extremities. No seizure disorders or headaches. MUSCULOSKELETAL: + back pain SKIN: No skin cancer. No rash. PSYCHIATRIC: Denies current depression or suicidal thoughts. ENDOCRINE: Denies current thyroid disorders. Denies any blood sugar glucose intolerance. HEME/LYMPHATIC: Denies any lumps and bumps around the neck. History of deep venous thrombosis. ALLERGY/IMMUNOLOGY: No immunoglobulin therapy. No immune deficiencies. BREAST: Denies current breast lumps, pain or nipple discharge. Physical Examinations : Constitutional : Cooperative , not in acute distress . HEENT: Neck supple. No Lymphadenopathy. Normal thyroid size . Eyes no ptosis , no icterus, no photophobia . Hearing intact. Normal oropharynx. No Thrush. Respiratory : Chest clear to auscultations bilaterally. No wheezing. No rhonchi. Cardiovascular : Regular rate and rhythm , S1 / S2. No S3 . No S4. Gastrointestinal : Abdomen soft. No tenderness. Bowel sounds x 4. No organomegaly . Genitourinary : Deferred. Neurologic : Cranial nerve II to XII intact. No focal neurological deficits. Psychiatric : alert & oriented x 3. Matching mood & appropriate affect. Judgment & insight intact. Lymphatic No Lymphadenopathy. Musculoskeletal : Cervical Spine Motor strength in the deltoid and biceps: Normal right side. Normal Left side Motor strength biceps and the wrist extensors: Normal right side . Normal left side Motor strength in the triceps muscle: Normal right side. Normal left side Deep tendon reflexes: Normal at the biceps. Normal at Brachioradialis. Normal at triceps Cervical facet loading test: positive bilaterally Spurling test: positive bilaterally Neck distraction test: positive bilaterally Bella sign: positive bilaterally Lumbar spine Motor strength lower extremities ,thigh and legs 5/5 Right side , 5/5 Left side Deep tendon reflexes : Normal Knee Jerk. Normal Ankle Jerk Vertebral body tenderness over Lumbar facet Loading Test: positive Right / positive Left Range of motion of the lumbar spine Flexion 30 degrees, extension 10 degrees Straight Leg Raise test: Left/ Right positive at degree Adrian test: positive right / positive left. Severe tenderness over the Sacroiliac joint on the Right / Left sides Gaenslen test: positive bilaterally Seated flexion test: positive bilaterally. Imaging: MRI cervical spine from 02/14/22 reviewed. Assessment/ Plan : Recommendation of left facet blocks of the medial branches C3-C4, C4-C5. May need a series of treatments, up until RFA, for optimal pain relief. Risks, benefits of procedure discussed and patient verbalized understanding. Denies anticoagulant use. Denies medical history of diabetes. All questions answered. I have spent greater than 50 minutes on patient care today. Dr Chandler was available by phone for the evaluation of this patient. The time was used to review the medical records including relevant urine studies and Prescription history (MAPs), review of the available imaging, evaluation and examination of the patient, coordination of care with the medical staff and if applicable referring physicians, as well as creation of the medical record PQRS Measure Charge Sheet Mode of Arrival: Ambulatory - Pain Location Bilateral Medial Neck Non-Pharmacological Interventions: Heat, Inactivity, Physical Therapy, Sitting Pharmacological Interventions: PRN Medication, Scheduled Medication, Topical Medication PQRS Narrative: Smoking Status Never smoker Blood Pressure 117/77 Pain Intensity [Bilateral 4 Medial Neck] Scale Used Numeric (1 - 10) Hx Alcohol Use (MH) No Home Medications: Ambulatory Orders Ciclesonide [Omnaris] 12.5 gm NS HS 10/26/15 Desloratadine [Clarinex] 5 mg PO DAILY 10/26/15 Enalapril Maleate [Vasotec] 10 mg PO BID 10/26/15 Finacea 1 applicate TOPICAL HS 10/26/15 Ipratropium [place] 0.06%Nasal [Atrovent Nasal] 2 spray NASAL BID PRN 10/26/15 Mirvaso 1 applicate TOPICAL QAM 10/26/15 Omeprazole [PriLOSEC] 20 mg PO AC-BRKFST 10/26/15 cycloSPORINE [Restasis] 1 drop BOTH EYES BID 10/26/15 Alclometasone Dipropionate 1 applic TOPICAL DAILY 07/07/17 Escitalopram [Lexapro] 10 mg PO DAILY 07/07/17 Mesalamine [Lialda] 1.2 gm PO BID 07/07/17 Zolpidem Tartrate [Ambien] 5 mg PO HS 07/07/17 busPIRone HCl [Buspar] 10 mg PO BID 07/07/17 traMADol HCL [Ultram] 50 mg PO BID 07/07/17 HYDROcodone/APAP 5-325MG [Dorothy 5-325] 1 tab PO Q6HR PRN #90 tab 07/17/17
== END | disposition home or self-care (01) ==
LOC: PNWHC3 08:04
PROVIDERS: ATTEND Specialist
DX: M47.892 Other spondylosis, cervical region (principal)
CPT/HCPCS: 99211

== ENCOUNTER 2022-03-29 08:40 | Day surgery (SDC) | payer MEDICARE, BC ==
[2022-03-28 08:27] VITALS: BMI 34.5
[~2022-03-29 08:40] MED LIST changes: -BACITRACIN 50,000 UNIT, POLYMYXIN B 500,000 UNIT in SODIUM CHLORIDE 0.9% IRRIGATIO 1,00... IRRIGATION ONE; -DEXAMETHASONE SOD PHOSPHATE 10 MG/ML 1 ML VIAL IV ONE; -HYDROmorphone 1 MG/ML 1 ML SYRINGE IVP PRN; -ONDANSETRON 4 MG/2 ML VIAL IVP ONE; -ceFAZolin 2 GM in SODIUM CHLORIDE 0.9% 100 ML IVPB ONE
[2022-03-29 08:58] VITALS: TEMP 98
[2022-03-29] MEDS ORDERED: LACTATED RINGERS 1,000 ML IV ONE (08:58)
[2022-03-29] MEDS ORDERED: fentaNYL (PF) 50 MCG/ML 2 ML AMP ONE (09:45)
[2022-03-29] MEDS ORDERED: ROPIVACAINE 5MG/ML 20ML VIAL ONE (09:45)
[2022-03-29] MEDS ORDERED: MIDAZOLAM 2 MG/2 ML VIAL ONE (09:45)
[2022-03-29] MEDS ORDERED: DEXAMETHASONE SOD PHOSPHATE 10 MG/ML 1 ML VIAL ONE (09:45)
--- NOTE | 2022-03-29 10:12 | P.PCN ---
Date of Procedure: 03/29/22 Description of Procedure: PREOPERATIVE DIAGNOSIS: Cervical Facet syndrome /cervical spondylosis. POSTOPERATIVE DIAGNOSIS: Cervical Facet syndrome /cervical spondylosis. PROCEDURES: Bilateral cervical C4-C5, and C5-C6 medial branch injections, with fluoroscopic guidance, SURGEON: Jayden Wynne ANESTHESIA: 5ml of Local lidocaine 1% , and IV sedation with : versed 2mg, and Fentanyl 100 mcg EBL: None Specimen removed: None Fluoroscopic image: Saved to electronic medical records. PROCEDURE INDICATION: Patient had chronic neck pain. He tried conservative therapy with minimal benefits. Came here for intervention procedure. PROCEDURE DESCRIPTION: The patient was seen and identified in the preoperative area. Risks, benefits, complications, and alternatives were discussed with the patient. The patient agreed to pursue with the procedure and signed the consent. IV was started and vital signs were stable. Patient was taken to the procedure room and time out was completed. The patient was placed in the prone position on the procedure table and cervical area was prepped with ChloraPrep 1 and draped in the usual sterile fashion. Critical pause was taken. Vital signs were closely monitored during the procedure. Using AP fluoroscopy, right side the waists of lateral margins of C4, C5, and C6 were identified and localized with 1% lidocaine. We used 22-gauge 3-1/2 inch spinal needles 3 used for the procedure. Using the posterior approach, spinal cannulas were guided by anterior posterior fluoroscopy to the waists of the lateral masses of C4, C5, and C6. Needle tip position was confirmed at the centroid of the trapezoids of C4, C5, and C6 with lateral fluoroscopy. After negative aspiration of CSF and blood and with no paresthesias 0.5 mL of block solution injected at each site. Block solution contained 10 MG of dexamethasone and 4 mL of preservative-free ropivacaine 0.5%. [place] were removed intact. Entire procedure repeated on the left side . [place] removed intact. Skin was cleansed and bandages were applied. COMPLICATIONS: None. DISPOSITION / PLANS: The patient was placed in a supine position and transferred to the recovery area in a stable condition for observation and was discharged from the recovery room after meeting discharge criteria. Home discharge instructions given to the patient by the staff. The patient was reexamined prior to discharge. Scheduled to follow up with the pain clinic in 2- 4 weeks duration.
[2022-03-29] MEDS ORDERED: IV FLUID CONTINUATION 600 ML IV ONE (10:16)
[2022-03-29 10:22] VITALS: RESP 16
[2022-03-29 10:49] VITALS: BP 100/63; PULSE 59
--- NOTE | 2022-03-29 11:00 | FL ---
Fluoroscopy HISTORY: Pain 6 seconds fluoroscopy time supplied to the referring clinician. 4 intraoperative C-arm images docume nt the procedure. See dictated report from anesthesia.
== END 2022-03-29 10:55 | disposition home or self-care (01) ==
LOC: ORPAIN 08:40
DX: M47.812 Spondylosis without myelopathy or radiculopathy, cervical region (principal); K51.90 Ulcerative colitis, unspecified, without complications; I10 Essential (primary) hypertension; E78.5 Hyperlipidemia, unspecified; F32.A Depression, unspecified; K21.9 Gastro-esophageal reflux disease without esophagitis; M19.90 Unspecified osteoarthritis, unspecified site; Z79.899 Other long term (current) drug therapy; Z88.2 Allergy status to sulfonamides; Z98.890 Other specified postprocedural states; Z90.49 Acquired absence of other specified parts of digestive tract; Z98.49 Cataract extraction status, unspecified eye
CPT/HCPCS: 64490; 64491; J2250; J1100; J3010; J2795

== ENCOUNTER → 2022-04-10 | Outpatient (CLI) | payer MEDICARE, BC ==
--- NOTE | 2022-04-10 09:52 | P.PN ---
Subjective Progress Note Date: 04/10/22 Principal diagnosis: A 72 yr old female with a history of severe and chronic neck pain secondary to cervical degenerative disc diseases and spondylosis with facet arthropathy presents today for evaluation of BL facet blocks of the medial branches C4-C5, C5-C6 #1. Tim Ibanez states she experienced 75% pain relief for 1 day status post procedure. Pain level is currently at 2 out of 10 in intensity, constant, dull, burning in character in the mid to lower aspects of her cervical spine. It waxes and wanes in intensity throughout the day based on flexion or by evening. Pain is alleviated with topical Voltaren gel, injections, heat, activity modification like extension, physical therapy in January 2022 which worsened pain, massage therapy which worsened pain, repositioning and rest. Interventional pain procedures completed include FB/MB BL C4-C5, C5-C6 #1 Patient is currently on Denies due to history of kidney disease. Patient denies any side effects of the medication(s), denies excessive drowsiness or sleepiness, denies suicidal ideation and reports that the current pain medication is helping to control the pain and improve activities of daily living. Patient denies any motor or sensory deficits. Patient denies any fever or night sweats, denies any change in the bowel movements or urination. Physical Examination: -Constitutional: Cooperative. Not in acute distress . -HEENT: Neck is supple. No lymphadenopathy. No thyromegaly. Normal thyroid size. Eyes: No ptosis , no icterus, no photophobia. ENT: No auditory deficits. Normal oropharynx. No Thrush. - Respiratory: Chest clear to auscultations bilaterally. No wheezing. No rhonchi. - Cardiovascular: Regular rate and rhythm. S1 / S2 , no S3 , no S4. - Gastrointestinal: Abdomen soft no tenderness. Bowel sounds positive in all four quadrants. No organomegaly. - Genitourinary: Deferred. - Neurologic: Cranial nerve II to XII intact. No focal neurological deficits. - Psychatric: Alert & oriented x 3. Matching mood & appropriate affect. Judgment and insight intact. - Lymphatic: No Lymphadenopathy. - Musculoskeletal: Cervical spine: Muscle bulk/ tone/ strength in the bilateral upper extremities normal. Facet loading test cervical area positive over BL C4-C5, C5-C6 with jump reflex Lumbar spine: Motor bulk/ tone/ strength lower extremities , thigh and legs : 5/5 Deep tendon reflexes : Normal Knee Jerk. Normal Ankle Jerk . Vertebral body tenderness to palpation over Lumbar Facet Loading Test positive Straight Leg Raise: positive at 30 degrees right side/ left side Gaenslen's Test positive Sacral spine : Severe tenderness over the Sacroiliac joint: right side / left side Range of motion: Flexion of the lumbar spine <60 degrees Range of motion: Extension of the lumbar spine <20 degrees Gaenslen's Test positive Adrian test: positive right side / left side Assessment and plan: Chronic neck pain secondary to cervical degenerative disc disease , spondylosis with facet arthropathy without myelopathy Recommendation of BL C4-C5, C5-C6 facet block of the medial branches #2. May need a series of injections, up until RFA, for optimal pain relief. Risks, benefits of procedure discussed and pt verbalized understanding. Denies anticoagulant use or medical history of diabetes. All patient questions answered MAPS reviewed and it was appropriate. I have spent 31 minutes on patient care today. Dr Chandler was available by phone for the evaluation of this patient. The time was used to review the medical records including relevant urine studies and Prescription history (MAPs), review of the available imaging, evaluation and examination of the patient, coordination of care with the medical staff and if applicable referring physicians, as well as creation of the medical record PQRS Measure Charge Sheet PQRS Narrative: Smoking Status Never smoker Hx Alcohol Use (MH) No Home Medications: Ambulatory Orders Ciclesonide [Omnaris] 12.5 gm NS HS 10/26/15 Enalapril Maleate [Vasotec] 10 mg PO DAILY 10/26/15 Finacea 1 applicate TOPICAL HS 10/26/15 Ipratropium [place] 0.06%Nasal [Atrovent Nasal] 2 spray NASAL BID PRN 10/26/15 Mirvaso 1 applicate TOPICAL QAM 10/26/15 Omeprazole [PriLOSEC] 20 mg PO AC-BRKFST 10/26/15 cycloSPORINE [Restasis] 1 drop BOTH EYES BID 10/26/15 Alclometasone Dipropionate 1 applic TOPICAL DAILY 07/07/17 Escitalopram [Lexapro] 10 mg PO DAILY 07/07/17 Mesalamine [Lialda] 1.2 gm PO BID 07/07/17 Zolpidem Tartrate [Ambien] 2.5 mg PO HS 07/07/17 busPIRone HCl [Buspar] 10 mg PO BID 07/07/17 traMADol HCL [Ultram] 50 mg PO BID 07/07/17 Alendronate Sodium [Fosamax] 70 mg PO Q7D 03/28/22 HYDROcodone/APAP 5-325MG [[place] 5-325] 1 tab PO DAILY PRN 03/28/22
[2022-04-10 10:37] VITALS: BP 130/75; PULSE 71; RESP 18; TEMP 98
== END | disposition home or self-care (01) ==
LOC: PNWHC3 09:06
PROVIDERS: ATTEND Specialist
DX: M47.892 Other spondylosis, cervical region (principal)
CPT/HCPCS: 99211

== ENCOUNTER 2022-05-24 11:05 | Day surgery (SDC) | payer MEDICARE, BC ==
[2022-05-24] MEDS: LACTATED RINGERS 1,000 ML IV SCH ×2 (11:15→11:29)
[2022-05-24 11:22] VITALS: TEMP 97.2
[2022-05-24] MEDS ORDERED: fentaNYL (PF) 50 MCG/ML 2 ML AMP ONE (12:16)
[2022-05-24] MEDS ORDERED: methylPREDNISolone ACETATE 40 MG/ML 1 ML VIAL ONE (12:16)
[2022-05-24] MEDS ORDERED: ROPIVACAINE 5MG/ML 20ML VIAL ONE (12:16)
[2022-05-24] MEDS ORDERED: MIDAZOLAM 2 MG/2 ML VIAL ONE (12:16)
--- NOTE | 2022-05-24 12:49 | P.PCN ---
Date of Procedure: 05/24/22 Procedure(s) Performed: PREOPERATIVE DIAGNOSIS: 1-Cervical Spondylosis with Facet Arthropathy.without myelopathy. 2-cervical degenerative disc disease POSTOPERATIVE DIAGNOSIS: Same as preoperative diagnosis. PROCEDURES: Diagnostic bilateral C4 , C5 , and C6 medial branch blocks, with fluoroscopic guidance (fluoroscopy images available in radiology department ) ( to target the facet joint at bilateral C4- 5 , C5- 6 )# 2nd ANESTHESIA: Monitored anesthesia care as per anesthesia department EBL: Minimal PROCEDURE INDICATION: The patient with neck pain secondary to cervical arthropathy unresponsive to more conservative treatments. PROCEDURE DESCRIPTION / TECHNIQUE: The patient was seen and identified in the preoperative area. Risks, benefits, complications, and alternatives were discussed with the patient, the patient agreed to proceed with the procedure and signed the consent. IV was started. Vital signs remained stable throughout the procedure. Patient was taken to the OR and time out was completed. The patient was placed in the supine position on the procedure table. A pillow was placed under the patients chest to increase the cervical interlaminar space. The cervical area was prepped and draped in the usual sterile fashion. Critical pause was taken. Vital signs were closely monitored during the procedure. Conscious sedation was used during the procedure to decrease patients anxiety. Using cross-table lateral fluoroscopy, the centroid of the trapezoid of right C4 , C5 and C6, was identified, marked, and localized with 1% lidocaine 1 ml at each level for skin and Sub Q infiltrations . Subsequently, a 22 G 3 spinal needle was advanced guided by fluoroscopy to the centroid of the trapezoid of Right C4 , C5, C6 . [place] tip position was confirmed at the centroid of the trapezoids of Right C4 , C5 ,C6 with anteroposterior fluoroscopy. Subsequently, 2 ml of preservative-free Ropivacaine 0.5% mixed with Depo- Medrol 20 mg and half ml of the mixture was injected after negative aspiration for blood and CSF. [place] was then removed intact the same procedure was repeated at the left C4 , C5 , and C6 levels. COMPLICATIONS: No acute complications. DISPOSITION / PLANS: The patient was placed in a supine position and transferred to the recovery area in a stable condition for observation and was discharged from the recovery room after meeting discharge criteria. Home discharge instructions given to the patient by the staff. The patient was reexamined prior to discharge. The patient will schedule a follow up in the clinic in 2-4 weeks.
[2022-05-24] MEDS ORDERED: IV FLUID CONTINUATION 1,000 ML IV ONE (12:52)
--- NOTE | 2022-05-24 12:54 | FL ---
EXAMINATION TYPE: FL guided pain mgmt statistic DATE OF EXAM: 05/24/2022 HISTORY: Fluoroscopy time 22 seconds of fluoroscopy provided. IMPRESSION: 1. Fluoroscopy time.
[2022-05-24 13:17] VITALS: BP 115/57; PULSE 67; RESP 17
== END 2022-05-24 13:25 | disposition home or self-care (01) ==
LOC: ORPAIN 11:05
PROVIDERS: ATTEND Specialist
DX: M47.812 Spondylosis without myelopathy or radiculopathy, cervical region (principal); M50.30 Other cervical disc degeneration, unspecified cervical region; I10 Essential (primary) hypertension; E78.5 Hyperlipidemia, unspecified; K21.9 Gastro-esophageal reflux disease without esophagitis; R01.1 Cardiac murmur, unspecified; Z79.899 Other long term (current) drug therapy
CPT/HCPCS: 64490; 64491; J2250; J1030; J3010; J2795

== ENCOUNTER → 2022-06-17 | Outpatient (CLI) | payer MEDICARE, BC ==
[2022-06-17 12:36] VITALS: BP 143/66; PULSE 77; RESP 18; TEMP 98.2
--- NOTE | 2022-06-17 12:47 | P.PAINPG ---
PQRS Measure Charge Sheet Comment: A 72 yr old female with a history of severe and chronic low back pain secondary to lumbar degenerative disc diseases and lumbar spondylosis with facet arthropathy presents today for evaluation status post facet blocks of the medial branches BL C4-C5, C5-C6 #2. Pt states she experienced 100% pain relief x 1 days s/p procedure. Pain level is currently at 6/10 in intensity, constant, localized in the lower aspect of her cervical spine, achy in character. Pain is provoked by lifting. Pain is alleviated with PT in Dec 2021, topicals, medications, injections, home exercise regimen, repositioning and rest. Interventional pain procedures completed include BL MBB C3-C5, C5-C6 x 2 Patient is currently on [place] by Dr Burgess Patient denies any side effects of the medication(s), denies excessive drowsiness or sleepiness, denies suicidal ideation and reports that the current pain medication is helping to control the pain and improve activities of daily living. Patient denies any motor or sensory deficits. Patient denies any fever or night sweats, denies any change in the bowel movements or urination. Physical Examination: -Constitutional: Cooperative. Not in acute distress . - Neurologic: Cranial nerve II to XII intact. No focal neurological deficits. - Psychatric: Alert & oriented x 3. Matching mood & appropriate affect. Judgment and insight intact. - Musculoskeletal: Cervical spine: Muscle bulk/ tone/ strength in the bilateral upper extremities normal Vertebral body tenderness to palpation over Spurling test positive Distraction test positive Facet loading test positive Thoracic spine Muscle bulk / tone/ strength in the bilateral paraspinal muscles normal Vertebral body tender to palpation over Facet loading test positive over BL C4-C5, C5-C6 w paraspinal TTP Lumbar spine: Motor bulk/ tone/ strength lower extremities , thigh and legs : 5/5 Deep tendon reflexes : Normal Knee Jerk. Normal Ankle Jerk . Vertebral body tenderness to palpation over Lumbar Facet Loading Test positive Straight Leg Raise: positive at 30 degrees right side/ left side Gaenslen's Test positive Sacral spine : Severe tenderness over the Sacroiliac joint: right side / left side Range of motion: Flexion of the lumbar spine <60 degrees Range of motion: Extension of the lumbar spine <20 degrees Gaenslen's Test positive Bradley's Test positive Adrian test: positive right side / left side Thigh Thrust Test Sacral Thrust Test Assessment and plan: Chronic low back pain secondary to lumbar degenerative disc disease , lumbar spondylosis with facet arthropathy without myelopathy Recommendation of BL RFA C4-C5, C5-C6. Pt exhibited sufficient and satisfactory pain relief with prior diagnostic facet blocks of the medial branches. Risks, benefits of procedure discussed and pt verbalized understanding. Denies anticoagulant use or medical history of diabetes. All patient questions answered MAPS reviewed and it was appropriate. I have spent less than 30 minutes on patient care today. Dr Chandler was available by phone for the evaluation of this patient. The time was used to review the medical records including relevant urine studies and Prescription history (MAPs), review of the available imaging, evaluation and examination of the patient, coordination of care with the medical staff and if applicable referring physicians, as well as creation of the medical record PQRS Narrative: Smoking Status Never smoker Hx Alcohol Use (MH) No Home Medications: Ambulatory Orders Ciclesonide [Omnaris] 12.5 gm NS HS 10/26/15 Enalapril Maleate [Vasotec] 10 mg PO DAILY 10/26/15 Finacea 1 applicate TOPICAL HS 10/26/15 Ipratropium [place] 0.06%Nasal [Atrovent Nasal] 2 spray NASAL BID PRN 10/26/15 Mirvaso 1 applicate TOPICAL QAM 10/26/15 Omeprazole [PriLOSEC] 20 mg PO AC-BRKFST 10/26/15 cycloSPORINE [Restasis] 1 drop BOTH EYES BID 10/26/15 Alclometasone Dipropionate 1 applic TOPICAL DAILY 07/07/17 Escitalopram [Lexapro] 10 mg PO DAILY 07/07/17 Zolpidem Tartrate [Ambien] 2.5 mg PO HS 07/07/17 busPIRone HCl [Buspar] 10 mg PO BID 07/07/17 Alendronate Sodium [Fosamax] 70 mg PO Q7D 03/28/22 HYDROcodone/APAP 5-325MG [[place] 5-325] 1 tab PO DAILY PRN 03/28/22 Mesalamine [Pentasa] 500 mg PO BID 05/23/22 Controlled Substance Measures - Controlled Substance Measures Is patient prescribed a controlled substance at discharge?: No
== END | disposition home or self-care (01) ==
LOC: PNWHC3 11:57
PROVIDERS: ATTEND Specialist
DX: M47.896 Other spondylosis, lumbar region (principal); M51.36 Other intervertebral disc degeneration, lumbar region
CPT/HCPCS: 99211

== ENCOUNTER 2022-07-23 08:19 | Day surgery (SDC) | payer MEDICARE, BC ==
[2022-07-23] MEDS ORDERED: LACTATED RINGERS 1,000 ML IV ONE (09:03)
[2022-07-23 09:04] VITALS: RESP 16; TEMP 97.1
[2022-07-23] MEDS ORDERED: MIDAZOLAM 2 MG/2 ML VIAL ONE (10:11)
[2022-07-23] MEDS ORDERED: fentaNYL (PF) 50 MCG/ML 2 ML AMP ONE (10:11)
[2022-07-23] MEDS ORDERED: methylPREDNISolone ACETATE 40 MG/ML 1 ML VIAL ONE (10:11)
--- NOTE | 2022-07-23 10:58 | P.PCN ---
Date of Procedure: 07/23/22 Procedure(s) Performed: PREOPERATIVE DIAGNOSIS: Cervical spondylosis with Facet Arthropathy without myelopathy. POSTOPERATIVE DIAGNOSIS: Cervical spondylosis with Facet Arthropathy without myelopathy. PROCEDURES: Radiofrequency thermocoagulation,Bilateral C4, C5, C6 medial branch with Fluroscopy [place](fluoroscopy was available in Radiology department ) (to denervate the facet joint at Bilateral C4- 5 , C5- 6 ) ANESTHESIA: moderate sedation with fentanyl 150 micrograms and Versed 2 mg . Sedation start time 10:14. Sedation end time: 10:52 EBL: Minimal PROCEDURE INDICATION: The patient with neck pain secondary to cervical arthropathy who had more than 50% relief of her pain with previous diagnostic cervical medial branch block. PROCEDURE DESCRIPTION / TECHNIQUE: The patient was seen and identified in the preoperative area. Risks, benefits, complications, and alternatives were discussed with the patient, the patient agreed to proceed with the procedure and signed the consent. IV was started. Vital signs remained stable throughout the procedure. Patient was taken to the OR and time out was completed. The patient was placed in the supine position on the procedure table. The cervical area was prepped and draped in the usual sterile fashion. Critical pause was taken. Vital signs were closely monitored during the procedure. Conscious sedation was used during the procedure to decrease patients anxiety. Using cross-table lateral fluoroscopy, the centroid of the trapezoid of left C4, C5, and C6 were identified, marked, and localized with 1% lidocaine. Subsequently, a 20 [id number] radiofrequency cannula with a 10-mm active tip was advanced guided by fluoroscopy to the centroid of the trapezoid of left C4, C5, and C6 . Needle tip position was confirmed at the centroid of the trapezoids of left C4, C5, and C6 with anteroposterior fluoroscopy. Each site then underwent sensory testing at 50 Hz and 0 to 1 volt and motor testing at 2 Hz and 0 to 3 volt with local stimulation, but no radicular symptoms down the arm. Thereafter each sites underwent radiofrequency thermocoagulation at 80 degrees celsius for 90 seconds after injecting 0.5 ml of PF Ropivacaine 0.5 %. After thermocoagulation, 1 ml of the block solution containing Depo-Medrol 20 mg and 3 mL of preservative-free normal saline was injected at the left C4, C5, and C6 levels after negative aspiration of CSF and blood and with no paresthesias. Cannulas were retracted while injecting ropivacaine 0.5 % until the needle is out. Then the exact same procedure was done for the right side and I did the right side C4, C5 , C6 radiofrequency thermocoagulation then and the procedure,the Skin was cleansed and bandages were applied. COMPLICATIONS: No acute complications. DISPOSITION / PLANS: The patient was placed in a supine position and transferred to the recovery area in a stable condition for observation and was discharged from the recovery room after meeting discharge criteria. Home discharge instructions given to the patient by the staff. The patient was reexamined prior to discharge. The patient will schedule a follow up in the clinic in 2-4 weeks.
[2022-07-23] MEDS ORDERED: IV FLUID CONTINUATION 1,000 ML IV ONE (10:59)
--- NOTE | 2022-07-23 11:00 | FL ---
EXAMINATION TYPE: FL guided pain mgmt statistic DATE OF EXAM: 07/23/2022 HISTORY: Fluoroscopy time 17 seconds of fluoroscopy provided. IMPRESSION: 1. Fluoroscopy time.
[2022-07-23 11:16] VITALS: BP 131/79; PULSE 81
== END 2022-07-23 11:32 | disposition home or self-care (01) ==
LOC: ORPAIN 08:19
PROVIDERS: ATTEND Specialist
DX: M47.812 Spondylosis without myelopathy or radiculopathy, cervical region (principal); Z91.013 Allergy to seafood
CPT/HCPCS: 64633; 64634 ×2; J2250; J1030; J3010; 99152; 99153

== ENCOUNTER → 2022-08-14 | Outpatient (CLI) | payer MEDICARE, BC ==
[2022-08-14 11:45] VITALS: BP 149/78; PULSE 74; RESP 18; TEMP 98.2
--- NOTE | 2022-08-14 15:11 | P.PAINPG ---
PQRS Measure Charge Sheet Comment: A 72 yr old female with a history of severe and chronic neck pain secondary to degenerative disc diseases and spondylosis with facet arthropathy without myelopathy presents today for evaluation s/p RFA BL C4-C5, C5-C6. Pt states she experienced 75 % pain relief s/p procedure. Pain level is currently at 2/10 in intensity but escalates as high as 7/10, constant, localized in the lower cervical spine, dull/ achy in character without radiation. Pain is provoked by forward flexion. Pain is alleviated with PT in Winter 2020 x 8 wks which provoked pain, massage integrated w PT which relieved pain, heat, ice intermittently s/p RFA, meds ([place]), topicals, heating pad use, repositioning and rest. Interventional pain procedures completed include BL RFA C4-C6 Patient is currently on [place] Patient denies any side effects of the medication(s), denies excessive drowsiness or sleepiness, denies suicidal ideation and reports that the current pain medication is helping to control the pain and improve activities of daily living. Patient denies any motor or sensory deficits. Patient denies any fever or night sweats, denies any change in the bowel movements or urination. Physical Examination: -Constitutional: Cooperative. Not in acute distress . - Neurologic: Cranial nerve II to XII intact. No focal neurological deficits. - Psychatric: Alert & oriented x 3. Matching mood & appropriate affect. Judgment and insight intact. - Musculoskeletal: Cervical spine: Muscle bulk/ tone/ strength in the bilateral upper extremities normal Vertebral body tenderness to palpation over C6 Spurling test positive Distraction test positive Facet loading test positive Thoracic spine Muscle bulk / tone/ strength in the bilateral paraspinal muscles normal Vertebral body tender to palpation over Facet loading test positive Lumbar spine: Motor bulk/ tone/ strength lower extremities , thigh and legs : 5/5 Deep tendon reflexes : Normal Knee Jerk. Normal Ankle Jerk . Vertebral body tenderness to palpation over Lumbar Facet Loading Test positive Straight Leg Raise: positive at 30 degrees right side/ left side Gaenslen's Test positive Sacral spine : Severe tenderness over the Sacroiliac joint: right side / left side Range of motion: Flexion of the lumbar spine <60 degrees Range of motion: Extension of the lumbar spine <20 degrees Gaenslen's Test positive Bradley's Test positive Adrian test: positive right side / left side Thigh Thrust Test Sacral Thrust Test Assessment and plan: Chronic neck pain secondary to degenerative disc disease , spondylosis with facet arthropathy without myelopathy Recommendation of TOMAS C6-C7. May need a series of injections, up to 3 within 6 mo period, for optimal pain relief. Risks, benefits of procedure discussed and pt verbalized understanding. Denies anticoagulant use or medical history of diabetes. Chronic and current use of high-risk medication (Opioids). The patient was counseled about risk of opioid use, psychological risk associated with opioids and was orally counseled to not overuse , divert or sell medications. Pt is to store medication in a safe location. The patient is counseled against driving while using narcotic medications and also not to use alcohol or any illicit recreational drugs. Patient verbalized understanding that the lack of compliance will result in failure to renew narcotic prescription(s) as well as possible discharge from the clinic Diagnoses, prognosis and treatment options including but not limited to physical therapy, surgical interventions, interventional therapies and medication management including narcotics and adjuvant medication were discussed. All patient questions answered MAPS reviewed and it was appropriate. Prescription for [place] 5/325mg #30 w 1 RF. Narcotic agreement signed today 08/14/22. I have spent less than 30 minutes on patient care today. Dr Chandler was available by phone for the evaluation of this patient. The time was used to review the medical records including relevant urine studies and Prescription history (MAPs), review of the available imaging, evaluation and examination of the patient, coordination of care with the medical staff and if applicable referring physicians, as well as creation of the medical record PQRS Narrative: Smoking Status Never smoker Hx Alcohol Use (MH) No Home Medications: Ambulatory Orders Ciclesonide [Omnaris] 12.5 gm NS HS 10/26/15 Enalapril Maleate [Vasotec] 10 mg PO HS 10/26/15 Ipratropium [place] 0.06%Nasal [Atrovent Nasal] 2 spray NASAL BID PRN 10/26/15 Mirvaso 1 applicate TOPICAL QAM 10/26/15 Omeprazole [PriLOSEC] 20 mg PO AC-BRKFST 10/26/15 cycloSPORINE [Restasis] 1 drop BOTH EYES BID 10/26/15 Escitalopram [Lexapro] 10 mg PO DAILY 07/07/17 Zolpidem Tartrate [Ambien] 2.5 mg PO HS 07/07/17 busPIRone HCl [Buspar] 10 mg PO BID 07/07/17 Alendronate Sodium [Fosamax] 70 mg PO Q7D 03/28/22 HYDROcodone/APAP 5-325MG [[place] 5-325] 1 tab PO DAILY PRN 03/28/22 Mesalamine [Pentasa] 500 mg PO BID 05/23/22 metroNIDAZOLE 0.75% CREAM [Metrocream 0.75%] 1 applic TOPICAL HS 07/22/22 HYDROcodone/APAP 5-325MG [[place] 5-325] 1 tab PO Q24HR PRN 30 Days #30 tab 08/14/22 HYDROcodone/APAP 5-325MG [[place] 5-325] 1 tab PO Q24HR PRN 30 Days #30 tab 08/14/22 Controlled Substance Measures - Controlled Substance Measures Is patient prescribed a controlled substance at discharge?: Yes When asked, does pt state using other controlled substances?: No If prescribed controlled substance>3 days was MAPS reviewed?: Yes If Rx opioid, was Start Talking consent form obtained?: Yes Was information provided regarding opioid addiction?: Yes
== END | disposition home or self-care (01) ==
LOC: PNWHC3 10:04
PROVIDERS: ATTEND Specialist
DX: M47.892 Other spondylosis, cervical region (principal); M50.30 Other cervical disc degeneration, unspecified cervical region
CPT/HCPCS: 99211

== ENCOUNTER 2022-10-01 10:21 | Day surgery (SDC) | payer MEDICARE, BC ==
[2022-10-01] MEDS ORDERED: LACTATED RINGERS 1,000 ML IV ONE (10:39)
[2022-10-01 10:49] VITALS: TEMP 97.8
[2022-10-01] MEDS ORDERED: DEXAMETHASONE SOD PHOSPHATE 10 MG/ML 1 ML VIAL ONE (12:36)
[2022-10-01] MEDS ORDERED: IOPAMIDOL M200 10 ML VIAL ONE (12:36)
--- NOTE | 2022-10-01 13:04 | P.PCN ---
Date of Procedure: 10/01/22 Description of Procedure: Pre- and Post-operative Diagnosis: Cervical radiculopathy Procedure: C6-C7 Inter-Laminar Cervical Epidural Steroid Injection under biplanar fluoroscopy Surgeon: Jayden Lim Anesthesia: Local: 1% Lidocaine, IV sedation : Versed 1 mg, and fentanyl 50 g Sedation supervision start time : 1238 sedation Supervision end time: 1259 Complications: None. Estimated blood loss: None Specimens removed: None Fluoroscopic image: saved to electronic medical records. Indications for Procedure: The patient has been suffering from neck pain and pain radiating to the upper extremity . Inadequate pain control with pharmacologic regimen. An inter-laminar approach cervical epidural steroid injection was scheduled for the patient. Procedure and Findings: The patient was seen and examined in the holding area. The written informed consent was obtained after explaining the risks, benefits, alternatives of the procedure to the patient. The patient was brought to the procedure room and was placed in the prone position on the operating table. A pillow was placed under the upper chest. Standard anesthesia monitoring was done through out the procedure. Timeout was completed. The skin preparation was done with ChloraPrep 2 and draping was done in usual sterile fashion. Sterile technique was observed throughout the procedure. Under fluoroscopic guidance, the C6-C7 inter-laminar space was identified. 3 ml of 1% Lidocaine was injected with a 25 gauge needle to achieve adequate local anesthesia of the skin and subcutaneous tissue. A 20 gauge, 3.5 inch Tuohy type epidural needle was placed and gradually advanced up to the epidural space using loss of resistance technique and fluoroscopic guidance. Lateral, oblique fluoroscopic views confirm the needle position. No paresthesia was noted. A neg ative aspiration was confirmed and then 1 ml of Isovue-200 was injected. A good dye spread was seen in the epidural space and it was negative for any intrathecal, intraneural or intravascular spread. A total of 5 ml solution containing 10 mg Dexamethasone, and 4 ml preservative-free Normal Saline was injected slowly with intermittent aspiration. The needle was removed intact, area was cleaned and bandage was applied. Disposition : The patient tolerated the procedure very well. The patient was transferred to the recovery room and remained stable until discharged home. The patient was given detailed discharge instructions for bleeding, infection, increased pain at the injection site, and was advised to seek immediate medical attention should significant side effects develop. The patient will be followed up with our Pain Clinic within 4 weeks for follow-up visit.
[2022-10-01] MEDS ORDERED: IV FLUID CONTINUATION 1,000 ML IV ONE ×2 (13:05)
[2022-10-01 13:13] VITALS: BP 145/76; PULSE 85; RESP 18
[2022-10-01] MEDS ORDERED: LACTATED RINGERS 1,000 ML IV SCH (13:15)
--- NOTE | 2022-10-01 13:26 | FL ---
Intraoperative/procedural fluoroscopic services were provided. Total fluoroscopy time is 26 seconds w ith a total of 2 submitted images to PACS. Please see the operative/procedural note for further detai ls.
== END 2022-10-01 13:34 | disposition home or self-care (01) ==
LOC: ORPAIN 10:21
DX: M54.12 Radiculopathy, cervical region (principal); Z88.2 Allergy status to sulfonamides; I10 Essential (primary) hypertension; E78.00 Pure hypercholesterolemia, unspecified
CPT/HCPCS: 62321; J1100; Q9966; 99152

== ENCOUNTER → 2022-10-07 | Outpatient (CLI) | payer MEDICARE, BC ==
[2022-10-07 13:58] VITALS: BP 168/86; PULSE 95; RESP 16; TEMP 98.4
--- NOTE | 2022-10-07 14:41 | P.PAINPG ---
Objective - Vital Signs Vital signs: Vital Signs Temp 98.4 F 10/07/22 13:54 Pulse 95 10/07/22 13:54 Resp 16 10/07/22 13:54 BP 168/86 10/07/22 13:54 Pulse Ox 94 L 10/07/22 13:54 FiO2 Intake & Output 10/06/22 10/07/22 10/07/22 18:59 06:59 18:59 Weight 104.326 kg PQRS Measure Charge Sheet Mode of Arrival: Ambulatory Comment: A 72 yr old female with a history of severe and chronic neck pain secondary to cervical DDD and spondylosis with facet arthropathy without myelopathy presents today for evaluation s/p TOMAS C6-7 and medication refills. Pt states she experienced 90% pain relief x 2 wks s/p procedure. Pain level is currently at 4/10 in intensity, constant, stabbing in character w shooting towards the R shoulder. Pain is provoked by lifting. Pain is alleviated with medications (Zumbro[place]), topicals, injections in the past, heat, PT in the past, daily home stretching regimen, repositioning and rest. Interventional pain procedures completed include TOMAS C6-C7 Patient is currently on [place] Patient denies any side effects of the medication(s), denies excessive drowsiness or sleepiness, denies suicidal ideation and reports that the current pain medication is helping to control the pain and improve activities of daily living. Patient denies any motor or sensory deficits. Patient denies any fever or night sweats, denies any change in the bowel movements or urination. Physical Examination: -Constitutional: Cooperative. Not in acute distress . - Neurologic: Cranial nerve II to XII intact. No focal neurological deficits. - Psychatric: Alert & oriented x 3. Matching mood & appropriate affect. Judgment and insight intact. - Musculoskeletal: Cervical spine: Muscle bulk/ tone/ strength in the bilateral upper extremities normal Vertebral body tenderness to palpation over C6 Spurling test positive Distraction test positive Facet loading test positive Thoracic spine Muscle bulk / tone/ strength in the bilateral paraspinal muscles normal Vertebral body tender to palpation over Facet loading test positive Lumbar spine: Motor bulk/ tone/ strength lower extremities , thigh and legs : 5/5 Deep tendon reflexes : Normal Knee Jerk. Normal Ankle Jerk . Vertebral body tenderness to palpation over Lumbar Facet Loading Test positive Straight Leg Raise: positive at 30 degrees right side/ left side Gaenslen's Test positive Sacral spine : Severe tenderness over the Sacroiliac joint: right side / left side Range of motion: Flexion of the lumbar spine <60 degrees Range of motion: Extension of the lumbar spine <20 degrees Gaenslen's Test positive Adrian test: positive right side / left side Thigh Thrust Test Sacral Thrust Test Assessment and plan: Chronic neck pain secondary to cervical DDD, spondylosis with facet arthropathy without myelopathy Pt exhibited sufficient pain relief s/p procedure. Chronic and current use of high-risk medication (Opioids). The patient was counseled about risk of opioid use, psychological risk associated with opioids and was orally counseled to not overuse , divert or sell medications. Pt is to store medication in a safe location. The patient is counseled against driving while using narcotic medications and also not to use alcohol or any illicit recreational drugs. Patient verbalized understanding that the lack of compliance will result in failure to renew narcotic prescription(s) as well as possible discharge from the clinic Diagnoses, prognosis and treatment options including but not limited to physical therapy, surgical interventions, interventional therapies and medication management including narcotics and adjuvant medication were discussed. All patient questions answered MAPS reviewed and it was appropriate. Prescription refill for [place] 5/325mg #30 I have spent less than 30 minutes on patient care today. Dr Chandler was available by phone for the evaluation of this patient. The time was used to review the medical records including relevant urine studies and Prescription history (MAPs), review of the available imaging, evaluation and examination of the patient, coordination of care with the medical staff and if applicable referring physicians, as well as creation of the medical record - Pain Location Neck Non-Pharmacological Interventions: Heat, Home Exercise, Inactivity, Physical Therapy, Position/Reposition, Stretching Pharmacological Interventions: Block, Epidural, PRN Medication, Topical Medication PQRS Narrative: Smoking Status Never smoker Blood Pressure 168/86 Pain Intensity [Neck] 1 Scale Used Numeric (1 - 10) Hx Alcohol Use (MH) No Home Medications: Ambulatory Orders Ciclesonide [Omnaris] 12.5 gm NS HS 10/26/15 Enalapril Maleate [Vasotec] 10 mg PO HS 10/26/15 Ipratropium [place] 0.06%Nasal [Atrovent Nasal] 2 spray NASAL BID PRN 10/26/15 Mirvaso 1 applicate TOPICAL QAM 10/26/15 Omeprazole [PriLOSEC] 20 mg PO AC-BRKFST 10/26/15 cycloSPORINE [Restasis] 1 drop BOTH EYES BID 10/26/15 Escitalopram [Lexapro] 10 mg PO DAILY 07/07/17 Zolpidem Tartrate [Ambien] 2.5 mg PO HS 07/07/17 busPIRone HCl [Buspar] 10 mg PO BID 07/07/17 Alendronate Sodium [Fosamax] 70 mg PO Q7D 03/28/22 Mesalamine [Pentasa] 500 mg PO BID 05/23/22 metroNIDAZOLE 0.75% CREAM [Metrocream 0.75%] 1 applic TOPICAL HS 07/22/22 HYDROcodone/APAP 5-325MG [[place] 5-325] 1 tab PO Q24HR PRN 30 Days #30 tab 10/07/22 Controlled Substance Measures - Controlled Substance Measures Is patient prescribed a controlled substance at discharge?: Yes When asked, does pt state using other controlled substances?: No If prescribed controlled substance>3 days was MAPS reviewed?: Yes If Rx opioid, was Start Talking consent form obtained?: Yes Was information provided regarding opioid addiction?: Yes
== END | disposition home or self-care (01) ==
LOC: PNWHC3 13:30
PROVIDERS: ATTEND Specialist
DX: M50.30 Other cervical disc degeneration, unspecified cervical region (principal); M47.892 Other spondylosis, cervical region; M46.92 Unspecified inflammatory spondylopathy, cervical region
CPT/HCPCS: 99211

== ENCOUNTER → 2022-10-25 | Outpatient (CLI) | payer MEDICARE, BC ==
[2022-10-25 15:02] LABS: INR 0.9 (<1.2); Partial Thromboplastin Time 25.9 sec (22.0-30.0); Prothrombin Time 10.1 sec (9.0-12.0)
[2022-10-25 18:27] LABS: Appearance,Urine Clear (Clear); Bilirubin,Urine Negative (Negative); Blood,Urine Negative (Negative); Color,Urine Yellow (Yellow); Ketones,Urine Negative (Negative); Nitrite,Urine Negative (Negative); Specific Gravity,Urine 1.013 (1.001-1.030); Urobilinogen,Urine 0.2 (0.2,1.0)
[2022-10-25 18:33] LABS: Bacteria,Urine None Seen /HPF (None Seen)
[2022-10-25 18:39] LABS: HGB 11.4 g/dL (12.0-15.0); MCH 27.2 pg (27.0-32.0); MCHC 31.7 g/dL (32.0-37.0); MCV 85.9 fL (80.0-97.0); Mean Platelet Volume 9.5 fL (9.5-12.2); NRBC Per 100 WBC 0 /100 WBCS (0.0-0.0); Platelet Count 256 X 10*3/uL (140-440); RBC 4.19 X 10*6/uL (4.10-5.20); RDW 14.4 % (11.5-14.5); WBC 7.01 X 10*3/uL (4.50-10.00)
[2022-10-25 18:55] LABS: African American GFR (CKD) 67.2 (60.0-200.0); Albumin 4.2 g/dL (3.8-4.9); Albumin/Globulin Ratio 1.42 (1.60-3.17); Anion Gap 11.4 mmol/L (10.00-18.00); BUN/Creat Ratio 15.4 Ratio (12.00-20.00); Blood Urea Nitrogen 15.2 mg/dL (9.0-27.0); Calcium 9.5 mg/dL (8.7-10.3); Non-African American GFR(CKD) 57.9 (60.0-200.0); Potassium 4.2 mmol/L (3.5-5.5); Total Bilirubin 0.7 mg/dL (0.30-1.20); Total Protein 7.2 g/dL (6.2-8.2)
== END | disposition home or self-care (01) ==
LOC: LABPAT 13:53
PROVIDERS: ATTEND Orthopaedic Surgery Sports Medicine
DX: Z01.812 Encounter for preprocedural laboratory examination (principal); M19.011 Primary osteoarthritis, right shoulder
CPT/HCPCS: 80053; 81001; 85027; 85610; 85730; 87070

== ENCOUNTER 2022-11-07 05:42 | Observation (INO) | payer MEDICARE, BC ==
[2022-11-05 15:43] VITALS: BMI 35.0
[~2022-11-07 05:42] MED LIST changes: +ACETAMINOPHEN TAB 500 MG TAB PO PRN; +GABAPENTIN 300 MG CAP PO PRN; -LACTATED RINGERS 1,000 ML IV SCH; +MELOXICAM 7.5 MG TAB PO PRN; +ONDANSETRON 4 MG/2 ML VIAL IVP PRN; +TRANEXAMIC ACID IN NACL,ISO-OS 1,000 MG in SALINE 1 100ML.BAG IVPB PRN
[2022-11-07] MEDS: LACTATED RINGERS 1,000 ML IV SCH ×4 (06:44→18:51)
[2022-11-07] MEDS ORDERED: DEXAMETHASONE SOD PHOSPHATE 4 MG/ML 1 ML VIAL IVP ONE (06:45)
[2022-11-07] MEDS ORDERED: MIDAZOLAM 2 MG/2 ML VIAL IVP ONE (06:53)
[2022-11-07] MEDS ORDERED: LIDOCAINE 4% LTA KIT (4 ML) TOPICAL ONE (07:07)
[2022-11-07] MEDS ORDERED: SUCCINYLCHOLINE CHLORIDE 200 MG/10 ML VIAL IV ONE (07:07)
[2022-11-07] MEDS ORDERED: TRANEXAMIC ACID IN NACL,ISO-OS 1,000 MG/100 ML BAG ONE (07:07)
[2022-11-07] MEDS ORDERED: ePHEDrine 50 MG/ML 1 ML VIAL ONE (07:07)
[2022-11-07] MEDS ORDERED: LIDOCAINE 2% INJ 20 MG/ML (2 ML VIAL) ONE (07:07)
[2022-11-07] MEDS ORDERED: DEXAMETHASONE SOD PHOSPHATE 4 MG/ML 1 ML VIAL ONE (07:07)
[2022-11-07] MEDS ORDERED: ROPIVACAINE 5 MG/ML 30 ML VIAL ONE (07:07)
[2022-11-07] MEDS ORDERED: PROPOFOL 10 MG/ML 20 ML VIAL IV ONE (07:07)
[2022-11-07] MEDS ORDERED: PHENYLEPHRINE-0.9% NACL SYG 1,000 MCG/10 ML SYRINGE ONE (07:07)
[2022-11-07] MEDS ORDERED: VANCOMYCIN 1,000 MG VIAL MISCELLANE ONE (07:10)
[2022-11-07] MEDS ORDERED: ceFAZolin 1,000 MG in SODIUM CHLORIDE 0.9% 1,000 ML IRRIGATION ONE (07:43)
[2022-11-07] MEDS ORDERED: LACTATED RINGERS 1,000 ML IV ONE (08:36)
[2022-11-07] MEDS ORDERED: HYDROmorphone 0.5 MG/0.5 ML SYRINGE IVP PRN ×2 (08:56)
[2022-11-07] MEDS ORDERED: diphenhydrAMINE 25 MG CAP PO PRN (08:56)
[2022-11-07] MEDS ORDERED: ONDANSETRON 4 MG/2 ML VIAL IVP PRN (08:56)
[2022-11-07] MEDS ORDERED: PROCHLORPERAZINE SUPPOSITORY 25 MG SUPP RECTAL PRN (08:56)
[2022-11-07] MEDS ORDERED: SENNOSIDES-DOCUSATE SODIUM 1 EACH TAB PO PRN (08:56)
[2022-11-07] MEDS ORDERED: METOCLOPRAMIDE 5 MG/ML 2 ML VIAL IVP PRN (08:56)
[2022-11-07] MEDS ORDERED: HYDROcodone/APAP 10-325MG 1 EACH TAB PO PRN (09:00)
[2022-11-07] MEDS ORDERED: HYDROcodone/APAP 7.5-325MG 1 EACH TAB ONE (09:32)
--- NOTE | 2022-11-07 11:18 | XR ---
EXAMINATION TYPE: XR shoulder limited RT DATE OF EXAM: 11/07/2022 COMPARISON: NONE TECHNIQUE: One views submitted HISTORY: Post op FINDINGS: There is a prosthetic shoulder in near anatomic alignment. There is soft tissue edema and emphysema. IMPRESSION: 1. Postoperative change. Appears in near-anatomic alignment
--- NOTE | 2022-11-07 16:26 | OP ---
OPERATIVE REPORT PREOPERATIVE DIAGNOSES: 1. Right shoulder osteoarthrosis. 2. Right shoulder full-thickness rotator cuff tear. POSTOPERATIVE DIAGNOSES: 1. Right shoulder osteoarthrosis. 2. Right shoulder full-thickness rotator cuff tear. PROCEDURE PERFORMED: Right reverse total shoulder arthroplasty. ANESTHESIA: General endotracheal. ESTIMATED BLOOD LOSS: 100 mL. DRAINS: None. COMPLICATIONS: None apparent. DISPOSITION: Postanesthesia care unit. INDICATIONS FOR PROCEDURE: Hermelinda is a very pleasant 72-year-old female with longstanding right shoulder pain. Workup including x-rays and MRI revealed advanced osteoarthrosis of the right shoulder as well as a small rotator cuff tear. At this point, it is felt that she has failed conservative management, and she would like to proceed with operative intervention. The risks of the procedure were discussed with her in detail. These risks include, but are not limited to risk of infection, nerve damage, bleeding, pain, instability in the shoulder, loosening of the implants, and deep infection. There is also a small risk of deep vein thrombosis, which could lead to fatal pulmonary embolism. The patient understood the risks. All of her questions were answered to her satisfaction, and appropriate informed consent was obtained. DESCRIPTION OF PROCEDURE: The patient was identified in the preoperative holding area. Surgical site was marked by both the patient and myself. She was given 2 g of Ancef IV for prophylactic purposes. She was then transported to the operative suite, where she was placed supine on the operating room table. General anesthetic was then administered and dosed per the Anesthesia Department without apparent complication. Examination under anesthesia was then performed of the right shoulder. She had elevation to 130 degrees. External rotation to the side was just 30 degrees. The patient was then placed into the beach chair position and well-padded in preparation for surgery. Great care was taken to ensure that her cervical spine was in neutral alignment and well-padded and maintained that way throughout the operative case. Great care was also taken to ensure that her legs were appropriately padded as well. The patient's right upper extremity was then prepped and draped in usual sterile fashion. Standard surgical pause was undertaken to ensure that we were operating the correct site and that appropriate preoperative antibiotics had been given. All staff in the room were in agreement, and we proceeded. The acromion, AC joint, clavicle, and the coracoid were marked with a surgical pen. A planned incision starting at the level of the clavicle and extending distally over the deltopectoral interval approximately 1 cm lateral to the coracoid was marked with a surgical pen. The incision was then made with a 10-blade scalpel. Dissection was carried down sharply to the deltoid fascia. The deltopectoral interval was then identified at the level of the clavicle. A small band retractor was placed onto the proximal deltoid. I then released the deltoid fascia on the lateral aspect of the cephalic vein. The vein was left in its bed medially. The cephalic vein was protected throughout the entire case. I then identified the clavipectoral fascia. This was incised proximally to the level of the coracoacromial ligament. The coracoacromial ligament was left intact. I then used my finger to spread the interval between the conjoint tendon and the subscapularis. I felt for the axillary nerve, which was readily palpable. I then cleared the subacromial and subdeltoid spaces of bursal and scar tissue. I then utilized a Marques retractor to hold the deltoid and expose the humeral head. I then proceeded to release the subscapularis in the anterior-inferior shoulder capsule. The rotator cuff was then inspected. She did have a tear of the anterior supraspinatus. This measured approximately 2 cm x 1 cm retraction. The rotator interval was identified. She had had a previous biceps tenotomy. The bicipital groove was also identified. I then released the rotator interval. This was released at the base of the coracoid and then out laterally. The subscapularis and capsule were then released intratendinously. The subscapularis and capsule were released and extended distally in a lazy-S fashion approximately 1 cm medial to the bicipital groove. I then continued to release the capsule along the inferior neck in a vertical fashion to approximately the 6 o'clock position. Great care was taken to ensure that the capsule was always visualized as it was released as to avoid injuring the axillary nerve. I then brought a Recinos perishable fruit inspector with the arm externally rotated and abducted. I continued to release the capsule inferomedially to the 4 o'clock position. The inferior osteophytes were then removed as well. This was done with a rongeur. I then proceeded with preparation of the humerus. I removed all the goat's perez osteophytes. I then removed the subchondral plate from the superior aspect of the humeral head utilizing a large rongeur. The humeral head was essentially devoid of cartilage. I then utilized a starting reamer to gain access to the humeral canal. This was approximately 1 cm medial to the rotator cuff insertion and 1 cm posterior to the bicipital groove. I then prepared the humeral canal with hand reaming. I started with a 6 mm reamer and progressed incrementally until firm resistance was encountered at 10 mm. The reamer handle was then left in place. I then utilized a humeral resection guide set at 30 degrees of retrotorsion. The cutting block was then set approximately 1 mm above the insertion of the rotator cuff. I then proceeded to osteotomize the humeral head with an oscillating saw. I then removed the resection guide and completed the osteotomy. I then proceeded to broach the proximal humerus. I started with a size 6 broach and incrementally increased up to a 10 mm broach. The 10 mm broach was then left in place. At this point, I made a decision to proceed with a reverse shoulder arthroplasty given that she did have a rotator cuff tear. I then inspected the joint for any loose bodies. The Bhattman retractor was then placed onto the posterior glenoid rim. The arm was placed in approximately 80 degrees of abduction and in slight flexion on the Recinos stand. I then proceeded to remove the hypertrophic labrum to definitively identify the actual glenoid. I then utilized the mini baseplate starting guide. The threaded pin was then placed in the center of the glenoid in approximately 10 degrees of inferior tilt. I then proceeded to ream the glenoid with the mini baseplate reamer. I then had the public service representative open a [place] Mini baseplate. This was then impacted onto the glenoid. I then measured for length and placed a 25 mm central screw. This screw had an excellent purchase in bone. I was able to completely rotate the scapula through the screwdriver once the screw was firmly seated. I then proceeded with peripheral locking screws. I placed a 30 mm x 5 mm inferior locking screw, a 20 mm posterior locking screw, and a 15 mm superior locking screw. I then had the public service representative open a standard glenosphere. This was a 36 mm glenosphere. I slightly set the offset to inferiorize the actual glenosphere. The Hall taper was dried, and the actual glenosphere was then placed onto a dried Hall taper of the mini baseplate. The glenosphere was then impacted into the baseplate. I then proceeded with trialing. I started with a standard polyethylene and standard baseplate. The shoulder was reduced. I was a slightly difficult reduction. It was very stable throughout a full range of motion. The conjoint tendon was not overly tensioned. I made a decision to proceed with standard polyethylene and standard baseplate. The shoulder was then very gently re-dislocated. I had the public service representative open a Biomet size 10 mini stem, a standard tray, and a standard polyethylene. The real stem was then impacted into the humeral canal in approximately 30 degrees of retrotorsion. The Hall taper was dried, and then the standard polyethylene and standard tray were then impacted onto the real stem. The shoulder was then again reduced. Again, it was a slightly difficult reduction. It was very stable throughout a full range of motion. There was no impingement noted. The conjoint tendon was of normal tension. The axillary nerve was felt for and readily palpated. At this point, we proceeded with closure. The shoulder was then thoroughly irrigated with sterile saline solution with antibiotic added. Approximately 500 mg of vancomycin powder was then placed deep. The deltopectoral interval was then closed with 0 Vicryl interrupted suture. The remaining 500 mg of vancomycin powder was placed subcutaneously. The subcutaneous tissue was closed with 2-0 Vicryl interrupted suture, and the skin was closed with a running 3-0 Quill suture. Dermabond was applied to the incision. Sterile dressing was then applied. The patient's right upper extremity was then placed in a standard sling. All sponge and needle counts were deemed correct prior to closure. The patient tolerated the procedure without apparent complication. She was transferred to recovery room in stable condition. MMODL / IJN: [id number] /
--- NOTE | 2022-11-07 17:20 | P.CONS ---
History of Present Illness - Reason for Consult Consult date: 11/07/22 Requesting physician: Felix Crocker - Chief Complaint right shoulder pain - History of Present Illness Patient is a 72-year-old female with hypertension, dyslipidemia, ulcerative colitis, and hypertension who presented for right reverse total shoulder arthroplasty. She underwent the procedure without any immediate postoperative complications. Patient seen and examined at bedside. Doing well. She denies any recent cough, cold, fever, flu, nausea, vomiting. She is not having any postoperative complications such as lightheadedness, dizziness, nausea, vomiting. Her arm is still numb and she is feeling well overall. Pertinent positives and negatives as discussed in HPI, a complete review of systems was performed and all other systems are negative. Vital signs reviewed General: nontoxic, no distress, appears at stated age Derm: warm, dry Head: atraumatic, normocephalic, symmetric Eyes: EOMI, no lid lag, anicteric sclera, pupils equal round reactive to light ENT: Nose and ears atraumatic, no thrush, no pharyngeal erythema Mouth: no lip lesion, mucus membranes moist Cardiovascular: S1S2 reg, no murmur, positive posterior tibial pulse bilateral, no edema, capillary refill less than 2 seconds, no carotid bruit Lungs: clear to auscultation bilateral, no rhonchi, no rales, no wheeze, no accessory muscle use Ext: no gross muscle atrophy, no contractures on the right shoulder in sling Neuro: CN II-XII grossly intact, strength equal bilateral, Psych: Alert, oriented, appropriate affect Assessment/Plan: 72-year-old female status post right reverse total shoulder arthroplasty. Management per orthopedic surgery. Hypertension -Resume enalapril -Follow blood pressures GERD -PPI Ulcerative colitis -Continue with Pentasa Sinusitis -Resume Atrovent and omnaris on discharge. Thank you for allowing us to participate in the care of this pleasant patient. Do not hesitate to contact us with questions. Someone can be reached from the [facility] [place] hospitalist group all hours of the day at [phone] or via [employer]. Past Medical History Past Medical History: GERD/Reflux, Hyperlipidemia, Hypertension, Osteoarthritis (OA), Skin Disorder Additional Past Medical History / Comment(s): Heart murmur, hx ulcer, rosacea, anemia, ulcerative colitis. Recent steroid use (about a month ago) for spider bite. History of Any Multi-Drug Resistant Organisms: None Reported Past Surgical History: Back Surgery, Cholecystectomy, Hernia Repair, Orthopedic Surgery Additional Past Surgical History / Comment(s): Bilateral carpal tunnel, bilateral cataracts, left ankle athroscopy, right shoulder rotator cuff, breast biopsies, left knee arthroscopic, cervical fusion, lumbar fusion X2, pain clinic procedure. Past Anesthesia/Blood Transfusion Reactions: No Reported Reaction Additional Past Anesthesia/Blood Transfusion Reaction / Comm: Pneumonia- post op after first back fusion. Past Psychological History: Depression Smoking Status: Never smoker Past Alcohol Use History: Rare Past Drug Use History: None Reported - Past Family History Father Family Medical History: Cancer, Neurologic Disorder Additional Family Medical History / Comment(s): Parkinson's. Mother Family Medical History: Dementia Brother(s) Family Medical History: No Reported History Sister(s) Family Medical History: No Reported History Medications and Allergies Home Medications Medication Instructions Recorded Confirmed Type Ciclesonide [Omnaris] 12.5 gm NS HS 10/26/15 11/05/22 History Enalapril Maleate [Vasotec] 10 mg PO HS 10/26/15 11/05/22 History Ipratropium [place] 0.06%Nasal 2 spray NASAL BID PRN 10/26/15 11/05/22 History [Atrovent Nasal] Mirvaso 1 applicate TOPICAL QAM 10/26/15 11/05/22 History Omeprazole [PriLOSEC] 20 mg PO AC-BRKFST 10/26/15 11/05/22 History cycloSPORINE [Restasis] 1 drop BOTH EYES BID 10/26/15 11/05/22 History Escitalopram [Lexapro] 10 mg PO QAM 07/07/17 11/05/22 History Zolpidem Tartrate [Ambien] 2.5 mg PO HS 07/07/17 11/05/22 History busPIRone HCl [Buspar] 10 mg PO BID 07/07/17 11/05/22 History Alendronate Sodium [Fosamax] 70 mg PO PAULINO 03/28/22 11/05/22 History Mesalamine [Pentasa] 500 mg PO BID 05/23/22 11/05/22 History metroNIDAZOLE 0.75% CREAM 1 applic TOPICAL HS 07/22/22 11/05/22 History [Metrocream 0.75%] HYDROcodone/APAP 5-325MG [[place] 1 tab PO Q24HR PRN 30 Days #30 tab 10/07/22 11/05/22 Rx 5-325] Allergies Allergy/AdvReac Type Severity Reaction Status Date / Time Sulfa (Sulfonamide Allergy Rash/Hives Verified 11/07/22 05:58 Antibiotics) yeast, dried Allergy Unknown Verified 11/07/22 05:58 Physical Exam Osteopathic Statement: *. No significant issues noted on an osteopathic structural exam other than those noted in the History and Physical/Consult. Vitals: Vital Signs Temp Pulse Resp BP Pulse Ox 11/07/22 14:00 99.1 F 97 18 101/66 93 L 11/07/22 12:30 92 16 134/65 99 11/07/22 12:03 97.9 F 90 16 139/66 99 11/07/22 11:45 90 16 133/65 99 11/07/22 11:30 78 16 150/61 99 11/07/22 11:15 78 16 133/63 99 11/07/22 11:00 80 16 129/59 99 11/07/22 10:30 78 16 129/81 97 11/07/22 09:48 68 16 136/53 95 11/07/22 09:33 63 16 144/59 97 11/07/22 09:18 73 16 150/72 94 L 11/07/22 09:03 79 16 152/73 95 11/07/22 08:48 97.9 F 80 16 153/66 100 11/07/22 06:59 61 16 137/63 99 11/07/22 06:03 97.9 F 67 16 157/72 98 Intake and Output 11/07/22 11/07/22 11/07/22 06:59 14:59 22:59 Intake Total 500 951 Output Total 500 Balance 500 451 Intake: IV 500 951 Output: Urine 400 Estimated Blood Loss 100 Other: Weight 90.7 kg 90.7 kg
--- NOTE | 2022-11-07 20:02 | P.ANPRN ---
Procedure Note - Anesthesia - Nerve Block Performed Right Interscalene Single Time Out Performed: Yes Date of Procedure: 11/07/22 Procedure Start Time: 06:52 Procedure Stop Time: 06:57 Location of Patient: PreOp Indication: Acute Post-Operative Pain, Requested by Surgeon Sedation Type: Sedate with meaningful contact maintained Preparation: Sterile Prep Position: Supine Needle Types: Pajunk Needle Gauge: 21 Ultrasound used to visualize needle placement: Yes Ultrasound used to observe medication spread: Yes Blood Aspirated: No Pain Paresthesia on Injection Noted: No Resistance on Injection: Normal Image Stored and Saved: Yes Events: Uneventful and Well Tolerated (Ropivacaine 0.5% 20 mL plus dexamethasone 4 mg)
[2022-11-08] MEDS: HYDROcodone/APAP 10-325MG 1 EACH TAB PO PRN ×2 (01:06→06:06)
[2022-11-08] MEDS: HYDROmorphone 0.5 MG/0.5 ML SYRINGE IVP PRN ×5 (03:42→21:48)
[2022-11-08] MEDS: LACTATED RINGERS 1,000 ML IV SCH ×3 (06:06→23:20)
[2022-11-08 09:43] LABS: Basophils # (A) 0.02 X 10*3/uL (0.00-0.10); Basophils % (A) 0.2 %; Eosinophils # (A) 0.01 X 10*3/uL (0.04-0.35); Eosinophils % (A) 0.1 %; HCT 30.7 % (37.2-46.3); HGB 9.7 g/dL (12.0-15.0); Immature Grans, Automated 0.2 %; Lymphocytes % (A) 13.9 %; MCHC 31.6 g/dL (32.0-37.0); MCV 88.5 fL (80.0-97.0); Mean Platelet Volume 10.1 fL (9.5-12.2); Monocytes # (A) 0.74 X 10*3/uL (0.20-1.00); Monocytes % (A) 7.9 %; NRBC Per 100 WBC 0 /100 WBCS (0.0-0.0); Neutrophils # (A) 7.28 X 10*3/uL (1.80-7.70); Neutrophils % (A) 77.7 %; Platelet Count 224 X 10*3/uL (140-440); RBC 3.47 X 10*6/uL (4.10-5.20); RDW 14.7 % (11.5-14.5); WBC 9.37 X 10*3/uL (4.50-10.00)
[2022-11-08] MEDS ORDERED: oxyCODONE-APAP 7.5-325MG 1 EACH TAB PO PRN (11:49)
[2022-11-08] MEDS: oxyCODONE-APAP 7.5-325MG 1 EACH TAB PO PRN ×2 (12:08→17:49)
[2022-11-08] MEDS: PANTOPRAZOLE 40 MG TABLET PO SCH (12:12)
[2022-11-08] MEDS: busPIRone HCl 10 MG TAB PO SCH ×2 (12:12→21:45)
--- NOTE | 2022-11-08 12:28 | P.PN ---
Subjective Progress Note Date: 11/08/22 Principal diagnosis: Right TSA Patient is seen at bedside this morning. She is postop day #1 from right total shoulder arthroplasty. She has pain at the surgical site as expected but denies any new complaints. She denies numbness, tingling or calf pain. Review of systems is negative for fever, chills, chest pain, shortness of breath or other Objective - Vital Signs Vital signs: Vital Signs Temp 97.6 F 11/08/22 08:00 Pulse 77 11/08/22 08:00 Resp 16 11/08/22 08:00 BP 104/61 11/08/22 08:00 Pulse Ox 95 11/08/22 08:00 FiO2 21 11/07/22 20:59 Intake & Output 11/07/22 11/08/22 11/08/22 18:59 06:59 18:59 Intake Total 951 1500 Output Total 500 Balance 451 1500 Weight 90.7 kg Intake: IV 951 Oral 1500 Output: Urine 400 Estimated Blood Loss 100 Other: # Voids 1 5 1 - Exam Inspection reveals a benign surgical wound. There is no active bleeding or drainage. Neurovascular status is intact throughout the upper extremity with motor and sensation fully intact. Calves are soft and nontender. 2+ radial pulse and less than 2 second cap refill is present. - Constitutional General appearance: Present: no acute distress - Labs CBC & Chem 7: 11/08/22 06:10 Labs: Abnormal Lab Results - Last 24 Hours (Table) 11/08/22 Range/Units 06:10 RBC 3.47 L (4.10-5.20) X 10*6/uL Hgb 9.7 L (12.0-15.0) g/dL Hct 30.7 L (37.2-46.3) % MCHC 31.6 L (32.0-37.0) g/dL RDW 14.7 H (11.5-14.5) % Eosinophils # 0.01 L (0.04-0.35) X 10*3/uL Assessment and Plan (1) Status post reverse total arthroplasty of right shoulder Narrative/Plan: She will continue with routine postop orthopedic protocol including pain management, wound care, DVT prophylaxis and medical management. Expect that she will transfer to home tomorrow Current Visit: Yes Status: Acute Priority: Medium Code(s): Z96.611 - PRESENCE OF RIGHT ARTIFICIAL SHOULDER JOINT SNOMED Code(s): 34747759293144137 Time with Patient: Less than 30
[2022-11-08] MEDS: ESCITALOPRAM 10 MG TAB PO SCH (13:17)
--- NOTE | 2022-11-08 16:20 | P.PN ---
Subjective Progress Note Date: 11/08/22 Patient is a 72-year-old female with hypertension, dyslipidemia, ulcerative colitis, and hypertension who presented for right reverse total shoulder arthroplasty. She underwent the procedure without any immediate postoperative complications. Patient seen and examined at bedside. She does not get much sleep last night due to severe pain in her right shoulder. She denies any postoperative chest pain, shortness breath, nausea, vomiting, dizziness. General: nontoxic, no distress, appears at stated age Derm: warm, dry Head: atraumatic, normocephalic, symmetric Eyes: EOMI, no lid lag, anicteric sclera Mouth: no lip lesion, mucus membranes moist Cardiovascular: S1S2 reg, no murmur, positive posterior tibial pulse bilateral, Lungs: Decreased breath sounds bilateral, no rhonchi, no rales , no accessory muscle use Ext: no gross muscle atrophy, no edema, no contractures, right shoulder in sling Neuro: CN II-XI grossly intact, no focal neuro deficits Psych: Alert, oriented, appropriate affect Assessment/Plan: 72-year-old female status post right reverse total shoulder arthroplasty. Management per orthopedic surgery. Acute blood loss anemia, anticipated outcome of surgery -Start Slow Fe on discharge -Follow up with PCP in one week Hypertension - enalapril -Follow blood pressures GERD -PPI Ulcerative colitis -Continue with Pentasa Sinusitis -Resume Atrovent and omnaris on discharge. Thank you for allowing us to participate in the care of this pleasant patient. Do not hesitate to contact us with questions. Someone can be reached from the [facility] hospitalist group all hours of the day at [phone] or via [employer]. Objective - Vital Signs Vital signs: Vital Signs Temp 97.6 F 11/08/22 08:00 Pulse 77 11/08/22 08:00 Resp 16 11/08/22 08:00 BP 104/61 11/08/22 08:00 Pulse Ox 95 11/08/22 08:00 FiO2 21 11/07/22 20:59 Intake & Output 11/07/22 11/08/22 11/08/22 18:59 06:59 18:59 Intake Total 951 1500 Output Total 500 Balance 451 1500 Weight 90.7 kg Intake: IV 951 Oral 1500 Output: Urine 400 Estimated Blood Loss 100 Other: # Voids 1 5 1 - Labs CBC & Chem 7: 11/08/22 06:10 Labs: Abnormal Lab Results - Last 24 Hours (Table) 11/08/22 Range/Units 06:10 RBC 3.47 L (4.10-5.20) X 10*6/uL Hgb 9.7 L (12.0-15.0) g/dL Hct 30.7 L (37.2-46.3) % MCHC 31.6 L (32.0-37.0) g/dL RDW 14.7 H (11.5-14.5) % Eosinophils # 0.01 L (0.04-0.35) X 10*3/uL
[2022-11-08] MEDS: BALSALAZIDE DISODIUM 750 MG CAPSULE PO SCH ×2 (16:28→21:45)
[2022-11-08 20:05] VITALS: RESP 18
[2022-11-08] MEDS ORDERED: lisinopriL 20 MG TAB PO SCH (21:00)
[2022-11-09] MEDS: oxyCODONE-APAP 7.5-325MG 1 EACH TAB PO PRN ×3 (03:01→14:40)
[2022-11-09 08:12] VITALS: BP 114/74; PULSE 70; TEMP 98.2
[2022-11-09] MEDS: BALSALAZIDE DISODIUM 750 MG CAPSULE PO SCH (08:21)
[2022-11-09] MEDS: ESCITALOPRAM 10 MG TAB PO SCH (08:22)
[2022-11-09] MEDS: PANTOPRAZOLE 40 MG TABLET PO SCH (08:22)
[2022-11-09] MEDS: busPIRone HCl 10 MG TAB PO SCH (08:22)
--- NOTE | 2022-11-09 23:04 | P.DS ---
Providers Date of admission: 11/08/22 08:18 Expected date of discharge: 11/09/22 Attending physician: Felix Crocker Consults: 11/07/22 08:56 Consult Physician Routine Consulting Provider: Sayra Sarmiento Consult Reason/Comments: post op medical management Do you want consulting provider notified?: Yes Primary care physician: Mehrdad Peters MD - Discharge Diagnosis(es) (1) Status post reverse total arthroplasty of right shoulder Patient was admitted to the OR on 11/07/22 to undergo a reverse right total shoulder arthroplasty. She had failed conservative measures as an outpatient and desired to proceed with elective surgery after given informed consent. She underwent the above procedure which she tolerated well without complication. Postoperative hospital course has remained without complication. On day of discharge she is afebrile, vital signs stable, labs within acceptable ranges, tolerating by mouth meds and diet, voiding without difficulty, positive flatus, denies abdominal pain or calf pain, pain is controlled on oral pain medication and has no new complaints. Wound is benign, neurovascular status is intact, calf is soft and nontender, abdomen soft and nontender. Review of systems is negative for numbness, tingling, fever, chills, chest pain, shortness of breath, nausea, vomiting, dizziness, headaches, slurred speech or other. Status: Acute Priority: Medium Procedures: Right TSA Patient Condition at Discharge: Good Plan - Discharge Summary Discharge Rx Participant: Yes New Discharge Prescriptions: New oxyCODONE-APAP 7.5-325MG [Percocet 7.5-325 mg] 1 tab PO Q4HR PRN #42 tab PRN Reason: Pain Ferrous Sulfate [Slow Fe] 142 mg PO DAILY #30 tab Continue Enalapril Maleate [Vasotec] 10 mg PO HS Omeprazole [PriLOSEC] 20 mg PO AC-BRKFST Ipratropium [place] 0.06%Nasal [Atrovent Nasal 0.06%] 2 spray NASAL BID PRN PRN Reason: Allergy Symptoms Ciclesonide [Omnaris] 12.5 gm NS HS cycloSPORINE [Restasis] 1 drop BOTH EYES BID busPIRone HCl [Buspar] 10 mg PO BID Escitalopram [Lexapro] 10 mg PO QAM Zolpidem Tartrate [Ambien] 2.5 mg PO HS Mesalamine [Pentasa] 500 mg PO BID metroNIDAZOLE 0.75% CREAM [Metrocream 0.75%] 1 applic TOPICAL HS No Action Mirvaso 1 applicate TOPICAL QAM Alendronate Sodium [Fosamax] 70 mg PO PAULINO HYDROcodone/APAP 5-325MG [[place] 5-325] 1 tab PO Q24HR PRN 30 Days #30 tab PRN Reason: Pain Discharge Medication List Ciclesonide [Omnaris] 12.5 gm NS HS 10/26/15 [History] Enalapril Maleate [Vasotec] 10 mg PO HS 10/26/15 [History] Ipratropium [place] 0.06%Nasal [Atrovent Nasal 0.06%] 2 spray NASAL BID PRN 10/26/15 [History] Mirvaso 1 applicate TOPICAL QAM 10/26/15 [History] Omeprazole [PriLOSEC] 20 mg PO AC-BRKFST 10/26/15 [History] cycloSPORINE [Restasis] 1 drop BOTH EYES BID 10/26/15 [History] Escitalopram [Lexapro] 10 mg PO QAM 07/07/17 [History] Zolpidem Tartrate [Ambien] 2.5 mg PO HS 07/07/17 [History] busPIRone HCl [Buspar] 10 mg PO BID 07/07/17 [History] Alendronate Sodium [Fosamax] 70 mg PO PAULINO 03/28/22 [History] Mesalamine [Pentasa] 500 mg PO BID 05/23/22 [History] metroNIDAZOLE 0.75% CREAM [Metrocream 0.75%] 1 applic TOPICAL HS 07/22/22 [History] HYDROcodone/APAP 5-325MG [[place] 5-325] 1 tab PO Q24HR PRN 30 Days #30 tab 10/07/22 [Rx] Ferrous Sulfate [Slow Fe] 142 mg PO DAILY #30 tab 11/08/22 [Rx] oxyCODONE-APAP 7.5-325MG [Percocet 7.5-325 mg] 1 tab PO Q4HR PRN #42 tab 11/09/22 [Rx] Follow up Appointment(s)/Referral(s): Mehrdad Peters MD [Primary Care Provider] - 2 Weeks Felix Crocker MD [STAFF PHYSICIAN] - 10 Days Patient Instructions/Handouts: Joint Replacement Surgery (DC), Shoulder Arthroplasty (DC) Activity/Diet/Wound Care/Special Instructions: take meds as directed maintain sling keep wound clean and dry may shower tomorrow if no bleeding f/u in office Discharge Disposition: HOME SELF-CARE
== END 2022-11-09 15:12 | disposition home or self-care (01) ==
LOC: OR 05:42 → 4SSUR 08:48 → OR 11-08 08:18 → 4SSUR 11-08 08:18
PROVIDERS: ADMIT Orthopaedic Surgery Sports Medicine; ATTEND Orthopaedic Surgery Sports Medicine
DX: M19.011 Primary osteoarthritis, right shoulder (principal); M75.121 Complete rotator cuff tear or rupture of right shoulder, not specified as traumatic; D62 Acute posthemorrhagic anemia; I10 Essential (primary) hypertension; E78.5 Hyperlipidemia, unspecified; K51.90 Ulcerative colitis, unspecified, without complications; K21.9 Gastro-esophageal reflux disease without esophagitis; J32.9 Chronic sinusitis, unspecified; M35.00 Sjogren syndrome, unspecified; M81.0 Age-related osteoporosis without current pathological fracture; F41.9 Anxiety disorder, unspecified; L71.9 Rosacea, unspecified; F32.A Depression, unspecified; Z79.83 Long term (current) use of bisphosphonates; Z79.899 Other long term (current) drug therapy; Z88.2 Allergy status to sulfonamides; Z91.018 Allergy to other foods; Z91.02 Food additives allergy status; Z91.048 Other nonmedicinal substance allergy status; Z97.3 Presence of spectacles and contact lenses; Z90.49 Acquired absence of other specified parts of digestive tract; Z98.1 Arthrodesis status; Z98.42 Cataract extraction status, left eye; Z98.41 Cataract extraction status, right eye; Z98.890 Other specified postprocedural states; Z82.0 Family history of epilepsy and other diseases of the nervous system; Z80.9 Family history of malignant neoplasm, unspecified
CPT/HCPCS: 94760; 64415; 76942; 85025; 88300; 73020; 23472; G0378 ×2; C1776; J2250; J3370; J0330; J1100; J0690 ×2; J2405; J2795; J2370; J2704; J1170 ×2; J2001

== ENCOUNTER → 2022-12-02 | Outpatient (CLI) | payer MEDICARE, BC ==
[2022-12-02 10:20] VITALS: BP 149/65; PULSE 77; RESP 18
--- NOTE | 2022-12-02 14:46 | P.PAINPG ---
PQRS Measure Charge Sheet Comment: A 72 yr old female with a history of severe and chronic neck pain secondary to cervical DDD and spondylosis with facet arthropathy without myelopathy presents today for medication refills. Pain level is currently at 6 /10 in intensity, constant, localized in the lumbar spine, dull/ achy in character w shooting towards the BL shoulders and BUEs. Pain is provoked by hyperextension. Pain is alleviated with medications ([place] 7.5/325mg), heat, home stretching, topicals, repositioning and rest. Interventional pain procedures completed include AUDREY C6-C7 Sep 2022 Patient is currently on [place] 5/325mg Patient denies any side effects of the medication(s), denies excessive drowsiness or sleepiness, denies suicidal ideation and reports that the current pain medication is helping to control the pain and improve activities of daily living. Patient denies any motor or sensory deficits. Patient denies any fever or night sweats, denies any change in the bowel movements or urination. Physical Examination: -Constitutional: Cooperative. Not in acute distress . - Neurologic: Cranial nerve II to XII intact. No focal neurological deficits. - Psychatric: Alert & oriented x 3. Matching mood & appropriate affect. Judgment and insight intact. - Musculoskeletal: Cervical spine: Muscle bulk/ tone/ strength in the bilateral upper extremities normal Vertebral body tenderness to palpation over C6 Spurling test positive Distraction test positive Facet loading test positive Thoracic spine Muscle bulk / tone/ strength in the bilateral paraspinal muscles normal Vertebral body tender to palpation over Facet loading test positive Lumbar spine: Motor bulk/ tone/ strength lower extremities , thigh and legs : 5/5 Deep tendon reflexes : Normal Knee Jerk. Normal Ankle Jerk . Vertebral body tenderness to palpation over Lumbar Facet Loading Test positive Straight Leg Raise: positive at 30 degrees right side/ left side Gaenslen's Test positive Sacral spine : Severe tenderness over the Sacroiliac joint: right side / left side Range of motion: Flexion of the lumbar spine <60 degrees Range of motion: Extension of the lumbar spine <20 degrees Gaenslen's Test positive Adrian test: positive right side / left side Thigh Thrust Test Sacral Thrust Test Assessment and plan: Chronic neck pain secondary to cervical DDD, spondylosis with facet arthropathy without myelopathy Chronic and current use of high-risk medication (Opioids). The patient was counseled about risk of opioid use, psychological risk associated with opioids and was orally counseled to not overuse , divert or sell medications. Pt is to store medication in a safe location. The patient is counseled against driving while using narcotic medications and also not to use alcohol or any illicit recreational drugs. Patient verbalized understanding that the lack of compliance will result in failure to renew narcotic prescription(s) as well as possible discharge from the clinic Diagnoses, prognosis and treatment options including but not limited to physical therapy, surgical interventions, interventional therapies and medication management including narcotics and adjuvant medication were discussed. All patient questions answered MAPS reviewed and it was appropriate. Prescription refill for [place] 5/325mg #30 w 1 RF I have spent less than 30 minutes on patient care today. Dr Chandler was available by phone for the evaluation of this patient. The time was used to review the medical records including relevant urine studies and Prescription history (MAPs), review of the available imaging, evaluation and examination of the patient, coordination of care with the medical staff and if applicable referring physicians, as well as creation of the medical record PQRS Narrative: Smoking Status Never smoker Hx Alcohol Use (MH) No Home Medications: Ambulatory Orders Ciclesonide [Omnaris] 12.5 gm NS HS 10/26/15 Enalapril Maleate [Vasotec] 10 mg PO HS 10/26/15 Ipratropium [place] 0.06%Nasal [Atrovent Nasal 0.06%] 2 spray NASAL BID PRN 10/26/15 Mirvaso 1 applicate TOPICAL QAM 10/26/15 Omeprazole [PriLOSEC] 20 mg PO AC-BRKFST 10/26/15 cycloSPORINE [Restasis] 1 drop BOTH EYES BID 10/26/15 Escitalopram [Lexapro] 10 mg PO QAM 07/07/17 Zolpidem Tartrate [Ambien] 2.5 mg PO HS 07/07/17 busPIRone HCl [Buspar] 10 mg PO BID 07/07/17 Alendronate Sodium [Fosamax] 70 mg PO PAULINO 03/28/22 Mesalamine [Pentasa] 500 mg PO BID 05/23/22 metroNIDAZOLE 0.75% CREAM [Metrocream 0.75%] 1 applic TOPICAL HS 07/22/22 HYDROcodone/APAP 5-325MG [[place] 5-325] 1 tab PO Q24HR PRN 30 Days #30 tab 10/07/22 Ferrous Sulfate [Slow Fe] 142 mg PO DAILY #30 tab 11/08/22 oxyCODONE-APAP 7.5-325MG [Percocet 7.5-325 mg] 1 tab PO Q4HR PRN #42 tab 11/09/22 Controlled Substance Measures - Controlled Substance Measures Is patient prescribed a controlled substance at discharge?: Yes When asked, does pt state using other controlled substances?: Yes If prescribed controlled substance>3 days was MAPS reviewed?: Yes If Rx opioid, was Start Talking consent form obtained?: Yes Was information provided regarding opioid addiction?: Yes
== END ==
LOC: PNWHC3 10:01
PROVIDERS: ATTEND Specialist
DX: M47.812 Spondylosis without myelopathy or radiculopathy, cervical region (principal); M50.30 Other cervical disc degeneration, unspecified cervical region; G89.29 Other chronic pain; Z88.2 Allergy status to sulfonamides; Z91.018 Allergy to other foods
CPT/HCPCS: 99211

== ENCOUNTER 2023-02-27 08:56 | Day surgery (SDC) | payer MEDICARE, BC ==
[2023-02-25 15:31] VITALS: BMI 33.6
[2023-02-27] MEDS ORDERED: LACTATED RINGERS 1,000 ML IV ONE ×2 (09:45)
[2023-02-27 09:51] VITALS: TEMP 98.1
[2023-02-27] MEDS ORDERED: LACTATED RINGERS 1,000 ML IV SCH (10:00)
[2023-02-27] MEDS ORDERED: fentaNYL (PF) 50 MCG/ML 2 ML AMP ONE (10:16)
[2023-02-27] MEDS ORDERED: MIDAZOLAM 2 MG/2 ML VIAL ONE (10:16)
[2023-02-27] MEDS ORDERED: TRIAMCINOLONE ACETONIDE 40 MG/ML 1 ML VIAL ONE (10:16)
[2023-02-27] MEDS ORDERED: ROPIVACAINE 5 MG/ML 20 ML AMPULE ONE (10:16)
[2023-02-27] MEDS ORDERED: IV FLUID CONTINUATION 800 ML IV ONE (10:28)
--- NOTE | 2023-02-27 10:30 | P.PCN ---
Date of Procedure: 02/27/23 Description of Procedure: Pre and postop diagnosis: Myofascial pain syndrome Procedure: Trigger point injections X 9 Muscle group X bilateral trapezius, and right side levator scapulae, right side splenius capitis muscle Surgeon: Jayden Wynne Anesthesia: Versed 2 mg, and fentanyl 100 g sedation Supervision start time: 1018 Sedation supervision ended time: 1023 Complications: None Estimated blood loss: None Specimen removed: None Procedure indications: Patient had a history of myofascial pain syndrome. Patient tried conservative therapy. Came here for intervention procedure for better pain relief. Procedure description: Patient was seen and identified in the holding area risk benefits competitions alternative discussed with the patient. Patient agreed to proceed for the procedure signed the consent. Patient taken to the procedure area. Timeout was completed. A total number of 9 - trigger point area was marked with a sterile marker. After ChloraPrep 2 used to clean the area. Critical pause was taken. Using 25-gauge 1-1/2 [address] needle b[address] half way. Needle entered in each market site 2 mL of block solution injected at each level. The block solution containing 18 ml of 0.5% preservative-free ropivacaine with Kenlog 40 MG. Needle removed intact skin cleaned and Band-Aid applied. Patient tolerated the procedure well. Disposition: Patient discharge home after meeting the discharge criteria from the recovery. Patient scheduled to follow up with the pain clinic in 4 weeks for follow-up visit.
[2023-02-27 10:34] VITALS: RESP 18
[2023-02-27 11:03] VITALS: BP 106/72; PULSE 66
== END 2023-02-27 11:04 | disposition home or self-care (01) ==
LOC: ORPAIN 08:56
DX: M79.18 Myalgia, other site (principal); I10 Essential (primary) hypertension; E78.5 Hyperlipidemia, unspecified; K21.9 Gastro-esophageal reflux disease without esophagitis; F10.90 Alcohol use, unspecified, uncomplicated; M19.90 Unspecified osteoarthritis, unspecified site; Z88.2 Allergy status to sulfonamides; Z90.49 Acquired absence of other specified parts of digestive tract; Z98.49 Cataract extraction status, unspecified eye; Z98.890 Other specified postprocedural states
CPT/HCPCS: 20553; J2250; J3301; J3010; J2795

== ENCOUNTER → 2023-03-24 | Outpatient (CLI) | payer MEDICARE, BC ==
[2023-03-24 11:11] VITALS: BP 119/77; PULSE 67; RESP 18; TEMP 98
--- NOTE | 2023-03-24 15:15 | P.PAINPG ---
PQRS Measure Charge Sheet Comment: A 73 yr old female with a history of severe and chronic neck pain secondary to cervical DDD and spondylosis with facet arthropathy without myelopathy presents today for medication refills and evaluation for TPIs cervical. Pt states she experienced 0% pain relief. Pain level is provoked at 6 /10 in intensity, constant, localized in the cervical spine, achy in character w shooting towards the lower cervical spine. Pain is provoked by hyperextension. Pain is alleviated with PT x 2 wks in 2021 which provoked pain, heat, medications, topicals, repositioning and rest. Interventional pain procedures completed include cervical TPIs, TOMAS C6-C7 Patient is currently on [place] 5/325mg #30 Patient denies any side effects of the medication(s), denies excessive drowsiness or sleepiness, denies suicidal ideation and reports that the current pain medication is helping to control the pain and improve activities of daily living. Patient denies any motor or sensory deficits. Patient denies any fever or night sweats, denies any change in the bowel movements or urination. Physical Examination: -Constitutional: Cooperative. Not in acute distress . - Neurologic: Cranial nerve II to XII intact. No focal neurological deficits. - Psychatric: Alert & oriented x 3. Matching mood & appropriate affect. Judgment and insight intact. - Musculoskeletal: Cervical spine: Muscle bulk/ tone/ strength in the bilateral upper extremities normal Vertebral body tenderness to palpation over Spurling test positive Distraction test positive Facet loading test positive TTP Thoracic spine Muscle bulk / tone/ strength in the bilateral paraspinal muscles normal Vertebral body tender to palpation over C5 Facet loading test positive TTP Lumbar spine: Motor bulk/ tone/ strength lower extremities , thigh and legs : 5/5 Deep tendon reflexes : Normal Knee Jerk. Normal Ankle Jerk . Vertebral body tenderness to palpation over Lumbar Facet Loading Test positive Straight Leg Raise: positive at 30 degrees right side/ left side Gaenslen's Test positive Sacral spine : Severe tenderness over the Sacroiliac joint: right side / left side Range of motion: Flexion of the lumbar spine <60 degrees Range of motion: Extension of the lumbar spine <20 degrees Gaenslen's Test positive R / L Adrian test: positive right side / left side Thigh Thrust Test positive R / L Sacral Thrust Test positive R/ L Assessment and plan: Chronic neck pain secondary to cervical DDD, spondylosis with facet arthropathy without myelopathy Chronic and current use of high-risk medication (Opioids). The patient was counseled about risk of opioid use, psychological risk associated with opioids and was orally counseled to not overuse , divert or sell medications. Pt is to store medication in a safe location. The patient is counseled against driving while using narcotic medications and also not to use alcohol or any illicit recreational drugs. Patient verbalized understanding that the lack of compliance will result in failure to renew narcotic prescription(s) as well as possible discharge from the clinic Diagnoses, prognosis and treatment options including but not limited to physical therapy, surgical interventions, interventional therapies and medication management including narcotics and adjuvant medication were discussed. All patient questions answered MAPS reviewed and it was appropriate. UDS from 01/27/23 reviewed and consistent. Prescription refill for [place] 5/325mg #30, Flexeril 10mg #30 w 1 RF I have spent less than 30 minutes on patient care today. Dr Chandler was available by phone for the evaluation of this patient. The time was used to review the medical records including relevant urine studies and Prescription history (MAPs), review of the available imaging, evaluation and examination of the patient, coordination of care with the medical staff and if applicable referring physicians, as well as creation of the medical record PQRS Narrative: Smoking Status Never smoker Hx Alcohol Use (MH) No Home Medications: Ambulatory Orders Enalapril Maleate [Vasotec] 10 mg PO HS 10/26/15 Ipratropium [place] 0.06%Nasal [Atrovent Nasal 0.06%] 2 spray NASAL BID PRN 10/26/15 Mirvaso 1 applicate TOPICAL QAM 10/26/15 Omeprazole [PriLOSEC] 20 mg PO AC-BRKFST 10/26/15 cycloSPORINE [Restasis] 1 drop BOTH EYES BID 10/26/15 Escitalopram [Lexapro] 10 mg PO QAM 07/07/17 Zolpidem Tartrate [Ambien] 2.5 mg PO HS 07/07/17 Alendronate Sodium [Fosamax] 70 mg PO PAULINO 03/28/22 Mesalamine [Pentasa] 500 mg PO BID 05/23/22 metroNIDAZOLE 0.75% CREAM [Metrocream 0.75%] 1 applic TOPICAL HS 07/22/22 Ferrous Sulfate [Slow Fe] 142 mg PO DAILY #30 tab 11/08/22 busPIRone HCl [Buspar] 15 mg PO BID 02/25/23 Cyclobenzaprine [Flexeril] 10 mg PO HS PRN 30 Days #30 tab 03/24/23 HYDROcodone/APAP 5-325MG [[place] 5-325] 1 tab PO Q24H PRN 30 Days #30 tab 03/24/23 HYDROcodone/APAP 5-325MG [[place] 5-325] 1 tab PO Q24HR PRN 30 Days #30 tab 03/24/23 Controlled Substance Measures - Controlled Substance Measures Is patient prescribed a controlled substance at discharge?: Yes When asked, does pt state using other controlled substances?: Yes If prescribed controlled substance>3 days was MAPS reviewed?: Yes
== END ==
LOC: PNWHC3 10:16
PROVIDERS: ATTEND Specialist
DX: M50.30 Other cervical disc degeneration, unspecified cervical region (principal); M47.812 Spondylosis without myelopathy or radiculopathy, cervical region; G89.29 Other chronic pain; Z88.2 Allergy status to sulfonamides
CPT/HCPCS: 99211

== ENCOUNTER → 2023-05-19 | Outpatient (CLI) | payer MEDICARE, BC ==
[2023-05-19 10:41] VITALS: BP 105/68; PULSE 62; RESP 15; TEMP 97.7
--- NOTE | 2023-05-19 14:21 | P.PAINPG ---
PQRS Measure Charge Sheet Comment: A 73 yr old female with a history of severe and chronic neck pain secondary to cervical DDD and spondylosis with facet arthropathy without myelopathy presents today for medication refills. Pain level is provoked at 6 /10 in intensity, constant, localized in the cervical spine, achy in character w shooting towards the L lower cervical spine. Pain is provoked by hyperextension. Pain is alleviated with PT x 2 wks in 2021 which provoked pain, heat, medications, topicals, repositioning and rest. Interventional pain procedures completed include cervical TPIs, TOMAS C6-C7 Patient is currently on [place] 5/325mg #30 Patient denies any side effects of the medication(s), denies excessive drowsiness or sleepiness, denies suicidal ideation and reports that the current pain medication is helping to control the pain and improve activities of daily living. Patient denies any motor or sensory deficits. Patient denies any fever or night sweats, denies any change in the bowel movements or urination. Physical Examination: -Constitutional: Cooperative. Not in acute distress . - Neurologic: Cranial nerve II to XII intact. No focal neurological deficits. - Psychatric: Alert & oriented x 3. Matching mood & appropriate affect. Judgment and insight intact. - Musculoskeletal: Cervical spine: Muscle bulk/ tone/ strength in the bilateral upper extremities normal Vertebral body tenderness to palpation over Spurling test positive Distraction test positive Facet loading test positive TTP Thoracic spine Muscle bulk / tone/ strength in the bilateral paraspinal muscles normal Vertebral body tender to palpation over C5 Facet loading test positive TTP Lumbar spine: Motor bulk/ tone/ strength lower extremities , thigh and legs : 5/5 Deep tendon reflexes : Normal Knee Jerk. Normal Ankle Jerk . Vertebral body tenderness to palpation over Lumbar Facet Loading Test positive Straight Leg Raise: positive at 30 degrees right side/ left side Gaenslen's Test positive Sacral spine : Severe tenderness over the Sacroiliac joint: right side / left side Range of motion: Flexion of the lumbar spine <60 degrees Range of motion: Extension of the lumbar spine <20 degrees Gaenslen's Test positive R / L Adrian test: positive right side / left side Thigh Thrust Test positive R / L Sacral Thrust Test positive R/ L Assessment and plan: Chronic neck pain secondary to cervical DDD, spondylosis with facet arthropathy without myelopathy Chronic and current use of high-risk medication (Opioids). The patient was counseled about risk of opioid use, psychological risk associated with opioids and was orally counseled to not overuse , divert or sell medications. Pt is to store medication in a safe location. The patient is counseled against driving while using narcotic medications and also not to use alcohol or any illicit recreational drugs. Patient verbalized understanding that the lack of compliance will result in failure to renew narcotic prescription(s) as well as possible discharge from the clinic Diagnoses, prognosis and treatment options including but not limited to physical therapy, surgical interventions, interventional therapies and medication management including narcotics and adjuvant medication were discussed. All patient questions answered MAPS reviewed and it was appropriate. UDS from 01/27/23 reviewed and consistent. Prescription refill for [place] 5/325mg #30, Flexeril 10mg #30 w 1 RF I have spent less than 30 minutes on patient care today. Dr Chandler was available by phone for the evaluation of this patient. The time was used to review the medical records including relevant urine studies and Prescription history (MAPs), review of the available imaging, evaluation and examination of the patient, coordination of care with the medical staff and if applicable referring physicians, as well as creation of the medical record PQRS Narrative: Smoking Status Never smoker Hx Alcohol Use (MH) No Home Medications: Ambulatory Orders Enalapril Maleate [Vasotec] 10 mg PO HS 10/26/15 Ipratropium [place] 0.06%Nasal [Atrovent Nasal 0.06%] 2 spray NASAL BID PRN 10/26/15 Mirvaso 1 applicate TOPICAL QAM 10/26/15 Omeprazole [PriLOSEC] 20 mg PO AC-BRKFST 10/26/15 cycloSPORINE [Restasis] 1 drop BOTH EYES BID 10/26/15 Escitalopram [Lexapro] 10 mg PO QAM 07/07/17 Zolpidem Tartrate [Ambien] 2.5 mg PO HS 07/07/17 Alendronate Sodium [Fosamax] 70 mg PO PAULINO 03/28/22 Mesalamine [Pentasa] 500 mg PO BID 05/23/22 metroNIDAZOLE 0.75% CREAM [Metrocream 0.75%] 1 applic TOPICAL HS 07/22/22 Ferrous Sulfate [Slow Fe] 142 mg PO DAILY #30 tab 11/08/22 busPIRone HCl [Buspar] 15 mg PO BID 02/25/23 Cyclobenzaprine [Flexeril] 10 mg PO HS PRN 30 Days #30 tab 05/19/23 HYDROcodone/APAP 10-325MG [[place] 10-325] 1 tab PO Q24H PRN 30 Days #15 tab 05/19/23 HYDROcodone/APAP 10-325MG [[place] 10-325] 1 tab PO Q24HR PRN 30 Days #15 tab 05/19/23 Controlled Substance Measures - Controlled Substance Measures Is patient prescribed a controlled substance at discharge?: Yes When asked, does pt state using other controlled substances?: Yes If prescribed controlled substance>3 days was MAPS reviewed?: Yes
== END ==
LOC: PNWHC3 10:10
PROVIDERS: ATTEND Specialist
DX: M50.321 Other cervical disc degeneration at C4-C5 level (principal); M47.812 Spondylosis without myelopathy or radiculopathy, cervical region; G89.29 Other chronic pain; Z79.891 Long term (current) use of opiate analgesic; Z88.2 Allergy status to sulfonamides
CPT/HCPCS: 99211

== ENCOUNTER → 2023-07-14 | Outpatient (CLI) | payer MEDICARE, BC ==
[2023-07-14 11:34] VITALS: BP 110/74; PULSE 58; RESP 15; TEMP 97.6
--- NOTE | 2023-07-14 14:16 | P.PAINPG ---
PQRS Measure Charge Sheet Comment: A 73 yr old female with a history of severe and chronic neck pain secondary to cervical DDD and spondylosis with facet arthropathy without myelopathy presents today for medication refills. Pain level is provoked at 6 /10 in intensity, constant, localized in the cervical spine, achy in character w shooting towards the L lower cervical spine. Pain is provoked by hyperextension. Pain is alleviated with PT x 2 wks in 2021 which provoked pain, heat, medications, topicals, repositioning and rest. Interventional pain procedures completed include cervical TPIs, TOMAS C6-C7 Patient is currently on [place] 5/325mg #30 Patient denies any side effects of the medication(s), denies excessive drowsiness or sleepiness, denies suicidal ideation and reports that the current pain medication is helping to control the pain and improve activities of daily living. Patient denies any motor or sensory deficits. Patient denies any fever or night sweats, denies any change in the bowel movements or urination. Physical Examination: -Constitutional: Cooperative. Not in acute distress . - Neurologic: Cranial nerve II to XII intact. No focal neurological deficits. - Psychatric: Alert & oriented x 3. Matching mood & appropriate affect. Judgment and insight intact. - Musculoskeletal: Cervical spine: Muscle bulk/ tone/ strength in the bilateral upper extremities normal Vertebral body tenderness to palpation over Spurling test positive Distraction test positive Facet loading test positive TTP Thoracic spine Muscle bulk / tone/ strength in the bilateral paraspinal muscles normal Vertebral body tender to palpation over C5 Facet loading test positive TTP Lumbar spine: Motor bulk/ tone/ strength lower extremities , thigh and legs : 5/5 Deep tendon reflexes : Normal Knee Jerk. Normal Ankle Jerk . Vertebral body tenderness to palpation over Lumbar Facet Loading Test positive Straight Leg Raise: positive at 30 degrees right side/ left side Gaenslen's Test positive Sacral spine : Severe tenderness over the Sacroiliac joint: right side / left side Range of motion: Flexion of the lumbar spine <60 degrees Range of motion: Extension of the lumbar spine <20 degrees Gaenslen's Test positive R / L Adrian test: positive right side / left side Thigh Thrust Test positive R / L Sacral Thrust Test positive R/ L Assessment and plan: Chronic neck pain secondary to cervical DDD, spondylosis with facet arthropathy without myelopathy Chronic and current use of high-risk medication (Opioids). The patient was counseled about risk of opioid use, psychological risk associated with opioids and was orally counseled to not overuse , divert or sell medications. Pt is to store medication in a safe location. The patient is counseled against driving while using narcotic medications and also not to use alcohol or any illicit recreational drugs. Patient verbalized understanding that the lack of compliance will result in failure to renew narcotic prescription(s) as well as possible discharge from the clinic Diagnoses, prognosis and treatment options including but not limited to physical therapy, surgical interventions, interventional therapies and medication management including narcotics and adjuvant medication were discussed. All patient questions answered MAPS reviewed and it was appropriate. UDS collected today 06/25/23. Prescription refill for [place] 5/325mg #30, Flexeril 10mg #30 w 1 RF I have spent less than 30 minutes on patient care today. Dr Chandler was available by phone for the evaluation of this patient. The time was used to review the medical records including relevant urine studies and Prescription history (MAPs), review of the available imaging, evaluation and examination of the patient, coordination of care with the medical staff and if applicable referring physicians, as well as creation of the medical record PQRS Narrative: Smoking Status Never smoker Hx Alcohol Use (MH) No Home Medications: Ambulatory Orders Enalapril Maleate [Vasotec] 10 mg PO HS 10/26/15 Ipratropium [place] 0.06%Nasal [Atrovent Nasal 0.06%] 2 spray NASAL BID PRN 10/26/15 Mirvaso 1 applicate TOPICAL QAM 10/26/15 Omeprazole [PriLOSEC] 20 mg PO AC-BRKFST 10/26/15 cycloSPORINE [Restasis] 1 drop BOTH EYES BID 10/26/15 Escitalopram [Lexapro] 10 mg PO QAM 07/07/17 Zolpidem Tartrate [Ambien] 2.5 mg PO HS 07/07/17 Alendronate Sodium [Fosamax] 70 mg PO PAULINO 03/28/22 Mesalamine [Pentasa] 500 mg PO BID 05/23/22 metroNIDAZOLE 0.75% CREAM [Metrocream 0.75%] 1 applic TOPICAL HS 07/22/22 Ferrous Sulfate [Slow Fe] 142 mg PO DAILY #30 tab 11/08/22 busPIRone HCl [Buspar] 15 mg PO BID 02/25/23 HYDROcodone/APAP 10-325MG [[place] 10-325] 1 tab PO HS PRN 30 Days #15 tab 05/22/23 Cyclobenzaprine [Flexeril] 10 mg PO HS PRN 30 Days #30 tab 07/14/23 HYDROcodone/APAP 10-325MG [[place] 10-325] 1 tab PO Q24H PRN 30 Days #15 tab 07/14/23 HYDROcodone/APAP 10-325MG [[place] 10-325] 1 tab PO Q24HR PRN 30 Days #15 tab 07/14/23 Controlled Substance Measures - Controlled Substance Measures Is patient prescribed a controlled substance at discharge?: Yes When asked, does pt state using other controlled substances?: Yes If prescribed controlled substance>3 days was MAPS reviewed?: Yes If Rx opioid, was Start Talking consent form obtained?: Yes Was information provided regarding opioid addiction?: Yes
== END ==
LOC: PNWHC3 11:00
PROVIDERS: ATTEND Specialist
DX: M50.321 Other cervical disc degeneration at C4-C5 level (principal); M47.812 Spondylosis without myelopathy or radiculopathy, cervical region; G89.29 Other chronic pain; Z79.891 Long term (current) use of opiate analgesic; Z88.2 Allergy status to sulfonamides
CPT/HCPCS: 99212

== ENCOUNTER → 2023-09-15 | Outpatient (CLI) | payer MEDICARE, BC ==
[2023-09-15 11:43] VITALS: BP 116/75; PULSE 61; RESP 16; TEMP 98
--- NOTE | 2023-09-15 14:22 | P.PAINPG ---
PQRS Measure Charge Sheet Comment: A 73 yr old female with a history of severe and chronic neck pain secondary to cervical DDD and spondylosis with facet arthropathy without myelopathy presents today for medication refills. Pain level is provoked at 8 /10 in intensity, constant, localized in the cervical spine, achy in character w shooting towards the L lower cervical spine. Pain is provoked by hyperextension. Pain is alleviated with PT x 2 wks in 2021 which provoked pain, heat, medications, topicals, repositioning and rest. Interventional pain procedures completed include cervical TPIs, TOMAS C6-C7 Patient is currently on Check 5/325mg #30 Patient denies any side effects of the medication(s), denies excessive drowsiness or sleepiness, denies suicidal ideation and reports that the current pain medication is helping to control the pain and improve activities of daily living. Patient denies any motor or sensory deficits. Patient denies any fever or night sweats, denies any change in the bowel movements or urination. Physical Examination: -Constitutional: Cooperative. Not in acute distress . - Neurologic: Cranial nerve II to XII intact. No focal neurological deficits. - Psychatric: Alert & oriented x 3. Matching mood & appropriate affect. Judgment and insight intact. - Musculoskeletal: Cervical spine: Muscle bulk/ tone/ strength in the bilateral upper extremities normal Vertebral body tenderness to palpation over Spurling test positive Distraction test positive Facet loading test positive TTP Thoracic spine Muscle bulk / tone/ strength in the bilateral paraspinal muscles normal Vertebral body tender to palpation over C5 Facet loading test positive TTP Lumbar spine: Motor bulk/ tone/ strength lower extremities , thigh and legs : 5/5 Deep tendon reflexes : Normal Knee Jerk. Normal Ankle Jerk . Vertebral body tenderness to palpation over Lumbar Facet Loading Test positive Straight Leg Raise: positive at 30 degrees right side/ left side Gaenslen's Test positive Sacral spine : Severe tenderness over the Sacroiliac joint: right side / left side Range of motion: Flexion of the lumbar spine <60 degrees Range of motion: Extension of the lumbar spine <20 degrees Gaenslen's Test positive R / L Adrian test: positive right side / left side Thigh Thrust Test positive R / L Sacral Thrust Test positive R/ L Assessment and plan: Chronic neck pain secondary to cervical DDD, spondylosis with facet arthropathy without myelopathy Chronic and current use of high-risk medication (Opioids). The patient was counseled about risk of opioid use, psychological risk associated with opioids and was orally counseled to not overuse , divert or sell medications. Pt is to store medication in a safe location. The patient is counseled against driving while using narcotic medications and also not to use alcohol or any illicit recreational drugs. Patient verbalized understanding that the lack of compliance will result in failure to renew narcotic prescription(s) as well as possible discharge from the clinic Diagnoses, prognosis and treatment options including but not limited to physical therapy, surgical interventions, interventional therapies and medication management including narcotics and adjuvant medication were discussed. All patient questions answered MAPS reviewed and it was appropriate. UDS collected today 06/25/23. Prescription refill for Check 5/325mg #30, Flexeril 10mg #30 w 1 RF I have spent less than 30 minutes on patient care today. Dr Chandler was available by phone for the evaluation of this patient. The time was used to review the medical records including relevant urine studies and Prescription history (MAPs), review of the available imaging, evaluation and examination of the patient, coordination of care with the medical staff and if applicable referring physicians, as well as creation of the medical record PQRS Narrative: Smoking Status Never smoker Narcotic Agreement Date Signed 08/14/22 Hx Alcohol Use (MH) No Home Medications: Ambulatory Orders Enalapril Maleate [Vasotec] 10 mg PO HS 10/26/15 Ipratropium [place] 0.06%Nasal [Atrovent Nasal 0.06%] 2 spray NASAL BID PRN 10/26/15 Mirvaso 1 applicate TOPICAL QAM 10/26/15 Omeprazole [PriLOSEC] 20 mg PO AC-BRKFST 10/26/15 cycloSPORINE [Restasis] 1 drop BOTH EYES BID 10/26/15 Escitalopram [Lexapro] 10 mg PO QAM 07/07/17 Zolpidem Tartrate [Ambien] 2.5 mg PO HS 07/07/17 Alendronate Sodium [Fosamax] 70 mg PO PAULINO 03/28/22 Mesalamine [Pentasa] 500 mg PO BID 05/23/22 metroNIDAZOLE 0.75% CREAM [Metrocream 0.75%] 1 applic TOPICAL HS 07/22/22 Ferrous Sulfate [Slow Fe] 142 mg PO DAILY #30 tab 12/16/22 busPIRone HCl [Buspar] 15 mg PO BID 02/25/23 HYDROcodone/APAP 10-325MG [Check 10-325] 1 tab PO HS PRN 30 Days #15 tab 05/22/23 Cyclobenzaprine [Flexeril] 10 mg PO HS PRN 30 Days #30 tab 07/14/23 HYDROcodone/APAP 10-325MG [Check 10-325] 1 tab PO Q24H PRN 30 Days #15 tab 07/14/23 HYDROcodone/APAP 10-325MG [Check 10-325] 1 tab PO Q24HR PRN 30 Days #15 tab 07/14/23 Controlled Substance Measures - Controlled Substance Measures Is patient prescribed a controlled substance at discharge?: Yes When asked, does pt state using other controlled substances?: Yes If prescribed controlled substance>3 days was MAPS reviewed?: Yes
== END ==
LOC: PNWHC3 10:15
PROVIDERS: ATTEND Specialist
DX: M47.812 Spondylosis without myelopathy or radiculopathy, cervical region (principal); M50.321 Other cervical disc degeneration at C4-C5 level; G89.29 Other chronic pain; Z79.891 Long term (current) use of opiate analgesic; Z88.2 Allergy status to sulfonamides
CPT/HCPCS: 99211

== ENCOUNTER → 2023-11-10 | Outpatient (CLI) | payer MEDICARE, BC ==
[2023-11-10 10:40] VITALS: BP 125/80; PULSE 62; RESP 16; TEMP 97.8
--- NOTE | 2023-11-10 10:46 | P.PAINPG ---
PQRS Measure Charge Sheet Comment: A 73 yr old female with a history of severe and chronic neck pain secondary to cervical DDD and spondylosis with facet arthropathy without myelopathy presents today for medication refills. Pain level is provoked at 8 /10 in intensity, constant, localized in the cervical spine, predominantly axial, achy in c haracter w occasional shooting towards the L lower cervical spine. Pain is provoked by hyperextension. Pain is alleviated with PT x 2 wks in 2021 which provoked pain, heat, medications, topicals, repositioning and rest. Cervical disability score of 22. Interventional pain procedures completed include cervical TPIs, TOMAS C6-C7 Patient is currently on [place] 5/325mg #30, Flexeril prn Patient denies any side effects of the medication(s), denies excessive drowsiness or sleepiness, denies suicidal ideation and reports that the current pain medication is helping to control the pain and improve activities of daily living. Patient denies any motor or sensory deficits. Patient denies any fever or night sweats, denies any change in the bowel movements or urination. Physical Examination: -Constitutional: Cooperative. Not in acute distress . - Neurologic: Cranial nerve II to XII intact. No focal neurological deficits. - Psychatric: Alert & oriented x 3. Matching mood & appropriate affect. Judgment and insight intact. - Musculoskeletal: Cervical spine: Muscle bulk/ tone/ strength in the bilateral upper extremities normal Vertebral body tenderness to palpation over Spurling test positive Distraction test positive Facet loading test positive TTP Thoracic spine Muscle bulk / tone/ strength in the bilateral paraspinal muscles normal Vertebral body tender to palpation over C5 Facet loading test positive TTP Lumbar spine: Motor bulk/ tone/ strength lower extremities , thigh and legs : 5/5 Deep tendon reflexes : Normal Knee Jerk. Normal Ankle Jerk . Vertebral body tenderness to palpation over Lumbar Facet Loading Test positive Straight Leg Raise: positive at 30 degrees right side/ left side Gaenslen's Test positive Sacral spine : Severe tenderness over the Sacroiliac joint: right side / left side Range of motion: Flexion of the lumbar spine <60 degrees Range of motion: Extension of the lumbar spine <20 degrees Gaenslen's Test positive R / L Adrian test: positive right side / left side Thigh Thrust Test positive R / L Sacral Thrust Test positive R/ L Assessment and plan: Chronic neck pain secondary to cervical DDD, spondylosis with facet arthropathy without myelopathy Chronic and current use of high-risk medication (Opioids). The patient was counseled about risk of opioid use, psychological risk associated with opioids and was orally counseled to not overuse , divert or sell medications. Pt is to store medication in a safe location. The patient is counseled against driving while using narcotic medications and also not to use alcohol or any illicit recreational drugs. Patient verbalized understanding that the lack of compliance will result in failure to renew narcotic prescription(s) as well as possible discharge from the clinic Diagnoses, prognosis and treatment options including but not limited to physical therapy, surgical interventions, interventional therapies and medication management including narcotics and adjuvant medication were discussed. All patient questions answered MAPS reviewed and it was appropriate. UDS from 06/25/23 reviewed and consistent. Prescription refill for [place] 5/325mg #30, Flexeril 10mg #30 w 1 RF I have spent less than 30 minutes on patient care today. Dr Chandler was available by phone for the evaluation of this patient. The time was used to review the medical records including relevant urine studies and Prescription history (MAPs), review of the available imaging, evaluation and examination of the patient, coordination of care with the medical staff and if applicable referring physicians, as well as creation of the medical record PQRS Narrative: Smoking Status Never smoker Narcotic Agreement Date Signed 08/14/22 Hx Alcohol Use (MH) No Home Medications: Ambulatory Orders Enalapril Maleate [Vasotec] 10 mg PO HS 10/26/15 Ipratropium [place] 0.06%Nasal [Atrovent Nasal 0.06%] 2 spray NASAL BID PRN 10/26/15 Mirvaso 1 applicate TOPICAL QAM 10/26/15 Omeprazole [PriLOSEC] 20 mg PO AC-BRKFST 10/26/15 cycloSPORINE [Restasis] 1 drop BOTH EYES BID 10/26/15 Escitalopram [Lexapro] 10 mg PO QAM 07/07/17 Zolpidem Tartrate [Ambien] 2.5 mg PO HS 07/07/17 Alendronate Sodium [Fosamax] 70 mg PO PAULINO 03/28/22 Mesalamine [Pentasa] 500 mg PO BID 05/23/22 metroNIDAZOLE 0.75% CREAM [Metrocream 0.75%] 1 applic TOPICAL HS 07/22/22 Ferrous Sulfate [Slow Fe] 142 mg PO DAILY #30 tab 11/08/22 busPIRone HCl [Buspar] 15 mg PO BID 02/25/23 Cyclobenzaprine [Flexeril] 10 mg PO HS PRN 30 Days #30 tab 11/10/23 HYDROcodone/APAP 5-325MG [[place] 5-325] 1 tab PO HS PRN 30 Days #30 tab 11/10/23 HYDROcodone/APAP 5-325MG [[place] 5-325] 1 tab PO HS PRN 30 Days #30 tab 11/10/23 Controlled Substance Measures - Controlled Substance Measures Is patient prescribed a controlled substance at discharge?: Yes When asked, does pt state using other controlled substances?: Yes If prescribed controlled substance>3 days was MAPS reviewed?: Yes
== END ==
LOC: PNWHC3 09:41
PROVIDERS: ATTEND Specialist
DX: M47.812 Spondylosis without myelopathy or radiculopathy, cervical region (principal); M50.322 Other cervical disc degeneration at C5-C6 level; Z79.891 Long term (current) use of opiate analgesic; Z88.0 Allergy status to penicillin
CPT/HCPCS: 99211

== ENCOUNTER → 2023-12-02 | Outpatient (CLI) | payer MEDICARE, BC ==
--- NOTE | 2023-12-09 15:34 | CT ---
EXAMINATION TYPE: CT brain wo con CT DLP: 1195 mGycm, Automated exposure control for dose reduction was used. DATE OF EXAM: 12/02/2023 11:12 AM COMPARISON: None. CLINICAL INDICATION:Female, 73 years old with history of G25.0 essential tremor, Essential tremors bi lateral hands for several years TECHNIQUE: Brain: Axial CT images of the brain were obtained with coronal and sagittal reformats created and rev iewed. Contrast used: None. Oral contrast used: None. FINDINGS: Extra-axial spaces: No abnormal extra-axial fluid collections. Ventricular system: Ventricles appear dilated in proportion to the degree of cerebral atrophy. Cerebral parenchyma: No increased attenuation to suggest acute intraparenchymal hemorrhage. The gra y-white matter interface appears maintained. Mild generalized brain atrophy. White matter unremarka ble by CT. Cerebellum: No acute abnormality. Mass effect: No evidence of mass effect or midline shift. Intracranial vasculature: Unremarkable Soft tissues: No acute abnormality. Visualized orbits: Orbital contents appear grossly intact. Bilateral aphakia Calvarium/osseous structures: No evidence of calvarial fracture. Paranasal sinuses and mastoid air cells: Clear. MRI is more sensitive for detecting acute processes such as infarct, and may be considered if clinica lly warranted. IMPRESSION: No acute intracranial CT abnormality. Mild atrophy.
== END | disposition home or self-care (01) ==
LOC: RADCTMAIN 10:50
PROVIDERS: ATTEND Family Medicine
DX: G25.0 Essential tremor (principal); G31.9 Degenerative disease of nervous system, unspecified
CPT/HCPCS: 70450

== ENCOUNTER → 2023-12-31 | Outpatient (CLI) | payer MEDICARE, BC ==
[2023-12-31 16:23] LABS: T4, Free (Free Thyroxine) 1.52 ng/dL (0.80-1.80)
[2023-12-31 16:55] LABS: Vitamin B12 >3600.0 pg/mL (200.0-944.0)
== END | disposition home or self-care (01) ==
LOC: LABWHC1 11:04
PROVIDERS: ATTEND Psychiatry & Neurology Neurology
DX: E55.9 Vitamin D deficiency, unspecified (principal); E53.9 Vitamin B deficiency, unspecified; R25.1 Tremor, unspecified
CPT/HCPCS: 36415; 82306; 82390; 82525; 82607; 84207; 84439; 84443

== ENCOUNTER → 2024-01-05 | Outpatient (CLI) | payer MEDICARE, BC ==
[2024-01-05 10:33] VITALS: BP 108/66; PULSE 89; RESP 15; TEMP 98.6
--- NOTE | 2024-01-05 14:36 | P.PAINPG ---
Objective - Vital Signs Vital signs: Intake & Output 01/04/24 01/05/24 01/05/24 18:59 06:59 18:59 Weight 74.843 kg PQRS Measure Charge Sheet Comment: A 73 yr old female with a history of severe and chronic neck pain secondary to cervical DDD and spondylosis with facet arthropathy without myelopathy presents today for medication refills. Pain level is provoked at 2 /10 in intensity, constant, localized in the cervical spine, predominantly axial, sharp in laurie acter without shooting. Pain is provoked by hyperextension. Pain is alleviated with PT x 2 wks in 2021 which provoked pain, heat, medications, topicals, repositioning and rest. Cervical disability score of 22. Interventional pain procedures completed include cervical TPIs, TOMAS C6-C7 Patient is currently on [place] 5/325mg #30, Flexeril prn Patient denies any side effects of the medication(s), denies excessive drowsiness or sleepiness, denies suicidal ideation and reports that the current pain medication is helping to control the pain and improve activities of daily living. Patient denies any motor or sensory deficits. Patient denies any fever or night sweats, denies any change in the bowel movements or urination. Physical Examination: -Constitutional: Cooperative. Not in acute distress . - Neurologic: Cranial nerve II to XII intact. No focal neurological deficits. - Psychatric: Alert & oriented x 3. Matching mood & appropriate affect. Judgment and insight intact. - Musculoskeletal: Cervical spine: Muscle bulk/ tone/ strength in the bilateral upper extremities normal Vertebral body tenderness to palpation over Spurling test positive Distraction test positive Facet loading test positive TTP Thoracic spine Muscle bulk / tone/ strength in the bilateral paraspinal muscles normal Vertebral body tender to palpation over C5 Facet loading test positive TTP Lumbar spine: Motor bulk/ tone/ strength lower extremities , thigh and legs : 5/5 Deep tendon reflexes : Normal Knee Jerk. Normal Ankle Jerk . Vertebral body tenderness to palpation over Lumbar Facet Loading Test positive Straight Leg Raise: positive at 30 degrees right side/ left side Gaenslen's Test positive Sacral spine : Severe tenderness over the Sacroiliac joint: right side / left side Range of motion: Flexion of the lumbar spine <60 degrees Range of motion: Extension of the lumbar spine <20 degrees Gaenslen's Test positive R / L Adrian test: positive right side / left side Thigh Thrust Test positive R / L Sacral Thrust Test positive R/ L Assessment and plan: Chronic neck pain secondary to cervical DDD, spondylosis with facet arthropathy without myelopathy Chronic and current use of high-risk medication (Opioids). The patient was counseled about risk of opioid use, psychological risk associated with opioids and was orally counseled to not overuse , divert or sell medications. Pt is to store medication in a safe location. The patient is counseled against driving while using narcotic medications and also not to use alcohol or any illicit recreational drugs. Patient verbalized understanding that the lack of compliance will result in failure to renew narcotic prescription(s) as well as possible discharge from the clinic Diagnoses, prognosis and treatment options including but not limited to physical therapy, surgical interventions, interventional therapies and medication management including narcotics and adjuvant medication were discussed. All patient questions answered . Opiate/ Narcotic agreement updated 01/05/24. MAPS reviewed and it was appropriate. UDS collected 01/05/24 Prescription refill for [place] 5/325mg #30, Flexeril 10mg #30 w 1 RF I have spent less than 30 minutes on patient care today. Dr Chandler was available by phone for the evaluation of this patient. The time was used to review the medical records including relevant urine studies and Prescription history (MAPs), review of the available imaging, evaluation and examination of the patient, coordination of care with the medical staff and if applicable referring physicians, as well as creation of the medical record - Pain Location Bilateral Neck Non-Pharmacological Interventions: Inactivity Pharmacological Interventions: Encourage SWING GRINDER Use, Scheduled Medication PQRS Narrative: Smoking Status Never smoker Narcotic Agreement Date Signed 08/14/22 Hx Alcohol Use (MH) No Home Medications: Ambulatory Orders Enalapril Maleate [Vasotec] 10 mg PO HS 10/26/15 Ipratropium [place] 0.06%Nasal [Atrovent Nasal 0.06%] 2 spray NASAL BID PRN 10/26/15 Mirvaso 1 applicate TOPICAL QAM 10/26/15 Omeprazole [PriLOSEC] 20 mg PO AC-BRKFST 10/26/15 cycloSPORINE [Restasis] 1 drop BOTH EYES BID 10/26/15 Escitalopram [Lexapro] 10 mg PO QAM 07/07/17 Zolpidem Tartrate [Ambien] 2.5 mg PO HS 07/07/17 Alendronate Sodium [Fosamax] 70 mg PO PAULINO 03/28/22 Mesalamine [Pentasa] 500 mg PO BID 05/23/22 metroNIDAZOLE 0.75% CREAM [Metrocream 0.75%] 1 applic TOPICAL HS 07/22/22 Ferrous Sulfate [Slow Fe] 142 mg PO DAILY #30 tab 11/08/22 busPIRone HCl [Buspar] 15 mg PO BID 02/25/23 Cyclobenzaprine [Flexeril] 10 mg PO HS PRN 30 Days #30 tab 01/05/24 HYDROcodone/APAP 5-325MG [[place] 5-325] 1 tab PO HS PRN 30 Days #30 tab 01/05/24 HYDROcodone/APAP 5-325MG [[place] 5-325] 1 tab PO HS PRN 30 Days #30 tab 01/05/24 Controlled Substance Measures - Controlled Substance Measures Is patient prescribed a controlled substance at discharge?: Yes When asked, does pt state using other controlled substances?: Yes If prescribed controlled substance>3 days was MAPS reviewed?: Yes
== END ==
LOC: PNWHC3 09:47
PROVIDERS: ATTEND Specialist
DX: M50.321 Other cervical disc degeneration at C4-C5 level (principal); M47.816 Spondylosis without myelopathy or radiculopathy, lumbar region; G89.29 Other chronic pain; Z79.891 Long term (current) use of opiate analgesic; Z88.2 Allergy status to sulfonamides
CPT/HCPCS: 80307; G0463; 99211

== ENCOUNTER → 2024-03-01 | Outpatient (CLI) | payer MEDICARE, BC ==
--- NOTE | 2024-03-01 10:41 | P.PAINPG ---
Subjective Progress Note Date: 03/01/24 Principal diagnosis: neck pain, and lumbar back pain Mrs. Valdez is a73 -year-old pleasantfemalecame [facility], and radiating to left upper extremity . Patient has ongoing pain for many years. she is also complaining lumbar back pain but currently it is well controlled with the help of medications. Patient describes pain is aching, throbbing, constant type of pain. Pain is radiating toleft upper extremity. Patient rated pain levels are 2-4 out of 10 in severity. With the help of medications pain levels are 2 out of 10 in severity. Activities making pain worse. Medications, resting, stretching exercises helping in relieving patient's pain. Patient pain some days better than others. Overall activities decreased secondary to pain. Because of the pain sometimes patient is feeling lack of sleep, interest, and energy. Denied any side effects with the medications. Denied any bowel or bladder problems at this time. Patient is not using any walking aids for walking support. Patient denies any suicidal or homicidal ideations intent or plan. Patient denies any auditory or visual hallucinations. Patient denied any red flag symptoms related to pain. 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 Sensation grossly intact Lower extremity: Normal strength, and decreased range of motion secondary to pain Lumbar spine: Paravertebral tenderness: positive Lumbar facet load test : positive Sacroiliac joint tenderness: negative Thigh thrust test: not done SI joint compression test: negative Fabere test: not done Cervical spine: Paravertebral tenderness: Positive Cervical spine facet tessa: Positive Cervical spine Spurling test:negative - Constitutional Constitutional Comment(s): 13 point review of symptoms negative except as mentioned in the history of present illness Assessment and Plan Assessment: cervical spondylosis without myelopathy Cervical radiculopathy Myofascial pain syndrome Cervical postlaminectomy syndrome / ACDF Lumbar spondylosis without myelopathy Status post lumbar back surgery Plan: #1 Diagnoses, prognosis, and multiple treatment options including but not limited to physical therapy, interventional therapy, adjunct medication therapy, narcotic medication, and surgical options were discussed with the patient. And all questions were answered to the patient's satisfaction. #2 treatment plan agreement : Patient was thoroughly discussed regarding the treatment options, alternatives, and importance of exercises as tolerated. Patient clearly understood. #3 Patient was counseled on importance of regular exercise. Including jacki chi, aerobic exercises as tolerated. Which helps for chronic pain, and overall well- being. Patient also counseled regarding importance of weight control rolling chronic pain, and overall other health issues. By altering diet habits, minimizing sugar intake, and processed foods helps in minimizing Inflammation. Also discussed with the patient regarding intermittent fasting. . #4 investigations: MAPS- reviewed , urine drug test- reviewed #5 diagnostic tests: none #6 consultation : none # 7 interventional procedures: patient refused, and was not helpful in the past #8 medications #1 [place] 5/325 by mouth daily as needed with 1 refill #2 zolpidem 5 mg by mouth as needed from her primary care physician Medication side effects, complications, long-term consequences discussed with the patient. Patient recommended to contact the pain clinic if noticed any issues with given medications. a discussion with the patient regarding interaction, and side effects between Holden and zolpidem. Patient clearly understood #9 morphine milligrams equivalents dose ( MME) per day: 5 mg. # 10 TENS unit's, and percussion massage device #11 disposition: scheduled to follow up with pain clinic in 8 weeks duration. Time with Patient: Less than 30 PQRS Measure Charge Sheet Measure #130: Documentation of Current Meds in Medical Chart: Patient's medications documented in chart Measure #226: Tobacco Use: Screen & Cessation Intervention: Pt not a tobacco u ser Measure #111: Pneumonia Vaccination: Pneumococcal vaccine administered or previously received Measure #47: Advance Care Plan: Advance care planning discussed & documented, plan or surrogate given Measure #412: Opioid Treatment Agreement: Documented signed opioid trtmnt agreemnt min once during opioid trtmnt Measure #408: Opioid Therapy Follow-up Evaluation: Patient had f/u eval minimum every 3 months during opioid therapy Measure #317: Preventitive Care & Scrn High Bld Press & F/U: Pre-hypertensive or hypertensive BP documented, pt will f/u with PCP Measure #128: Body Mass Index (BMI) Screening & Follow-up: BMI documented ABOVE normal parameters - f/u documented Measure #131: Pain Assessment & Follow-up: Pain positive & plan documented Measure #431: Unhealthy Alcohol Use Preventative Care & Scrn: Patient not identified as an unhealthy alcohol user Mode of Arrival: Ambulatory PQRS Narrative: Smoking Status Never smoker Narcotic Agreement Date Signed 01/05/24 Hx Alcohol Use (MH) No Home Medications: Ambulatory Orders Enalapril Maleate [Vasotec] 10 mg PO HS 10/26/15 Ipratropium [place] 0.06%Nasal [Atrovent Nasal 0.06%] 2 spray NASAL BID PRN 10/26/15 Mirvaso 1 applicate TOPICAL QAM 10/26/15 Omeprazole [PriLOSEC] 20 mg PO AC-BRKFST 10/26/15 cycloSPORINE [Restasis] 1 drop BOTH EYES BID 10/26/15 Escitalopram [Lexapro] 10 mg PO QAM 07/07/17 Zolpidem Tartrate [Ambien] 2.5 mg PO HS 07/07/17 Alendronate Sodium [Fosamax] 70 mg PO PAULINO 03/28/22 Mesalamine [Pentasa] 500 mg PO BID 05/23/22 metroNIDAZOLE 0.75% CREAM [Metrocream 0.75%] 1 applic TOPICAL HS 07/22/22 Ferrous Sulfate [Slow Fe] 142 mg PO DAILY #30 tab 11/08/22 busPIRone HCl [Buspar] 15 mg PO BID 02/25/23 Cyclobenzaprine [Flexeril] 10 mg PO HS PRN 30 Days #30 tab 01/05/24 HYDROcodone/APAP 5-325MG [[place] 5-325] 1 tab PO HS PRN 30 Days #30 tab 01/05/24 HYDROcodone/APAP 5-325MG [[place] 5-325] 1 tab PO HS PRN 30 Days #30 tab 01/05/24 Controlled Substance Measures - Controlled Substance Measures Is patient prescribed a controlled substance at discharge?: Yes When asked, does pt state using other controlled substances?: Yes If prescribed controlled substance>3 days was MAPS reviewed?: Yes If Rx opioid, was Start Talking consent form obtained?: Yes If opioid is for acute pain is fill amount 7 days or less?: No Was information provided regarding opioid addiction?: Yes
[2024-03-01 10:55] VITALS: BP 116/77; PULSE 93; RESP 16; TEMP 97.1
== END ==
LOC: PNWHC3 10:17
PROVIDERS: ATTEND Anesthesiology
DX: M47.22 Other spondylosis with radiculopathy, cervical region (principal); M96.1 Postlaminectomy syndrome, not elsewhere classified; M47.816 Spondylosis without myelopathy or radiculopathy, lumbar region; M79.18 Myalgia, other site; Z98.890 Other specified postprocedural states; Z88.2 Allergy status to sulfonamides
CPT/HCPCS: 99211

== ENCOUNTER → 2024-03-01 | Outpatient (CLI) | payer MEDICARE, BC ==
[2024-03-01 16:20] LABS: BUN/Creat Ratio 16.91 Ratio (12.00-20.00); Blood Urea Nitrogen 18.6 mg/dL (9.0-27.0); Calcium 9.6 mg/dL (8.7-10.3); Carbon Dioxide 20.9 mmol/L (21.6-31.8); Chloride 103 mmol/L (96-109); Glucose 105 mg/dL (70-110); Potassium 3.9 mmol/L (3.5-5.5); Sodium 136 mmol/L (135-145)
[2024-03-01 16:58] LABS: Basophils # (A) 0.04 X 10*3/uL (0.00-0.10); Basophils % (A) 0.5 %; Eosinophils # (A) 0.15 X 10*3/uL (0.04-0.35); Eosinophils % (A) 1.8 %; HCT 41.6 % (37.2-46.3); HGB 13.3 g/dL (12.0-15.0); Lymphocytes # (A) 1.34 X 10*3/uL (0.90-5.00); Lymphocytes % (A) 16.4 %; MCV 90.8 FL (80.0-97.0); Mean Platelet Volume 9.7 FL (9.5-12.2); Monocytes # (A) 0.56 X 10*3/uL (0.20-1.00); Monocytes % (A) 6.9 %; NRBC Per 100 WBC 0 X 10*3/uL (0.00-0.01); Neutrophils # (A) 6.03 X 10*3/uL (1.80-7.70); Neutrophils % (A) 73.9 %; Platelet Count 293 X 10*3/uL (140-440); RBC 4.58 X 10*6/uL (4.10-5.20); RDW 13.7 % (11.5-14.5); WBC 8.16 X 10*3/uL (4.50-10.00)
== END | disposition home or self-care (01) ==
LOC: LABWHC1 10:45
PROVIDERS: ATTEND Psychiatry & Neurology Neurology
DX: T42.6X5A Adverse effect of other antiepileptic and sedative-hypnotic drugs, initial encounter (principal)
CPT/HCPCS: 36415; 80048; 85025

== ENCOUNTER → 2024-04-14 | Outpatient (CLI) | payer MEDICARE, BC ==
--- NOTE | 2024-04-15 00:20 | US ---
EXAMINATION TYPE: US liver DATE OF EXAM: 04/14/2024 COMPARISON: US 2019 CLINICAL INDICATION: Female, 74 years old with history of R74.8 ELEVATED ALK PHOS; TECHNIQUE: Multiple sonographic images of the right upper quadrant are obtained. FINDINGS: EXAM MEASUREMENTS: Liver Length: 12.9 cm CBD: 0.6 cm Right Kidney: 8.6 x 4.1 x 3.8 cm Pancreas: visualized portions wnl, limited by overlying midline bowel gas Liver: mildly heterogeneous Gallbladder: surgically absent Evidence for sonographic Crocker's sign: no CBD: wnl Right Kidney: small in size IMPRESSION: 1. There may be some mild fatty infiltration liver.
== END | disposition home or self-care (01) ==
LOC: RADUSWWP 07:20
PROVIDERS: ATTEND Family Medicine
DX: R74.8 Abnormal levels of other serum enzymes (principal)
CPT/HCPCS: 76705

== ENCOUNTER → 2024-04-26 | Outpatient (CLI) | payer MEDICARE, BC ==
[2024-04-26 13:30] VITALS: BP 143/84; PULSE 78; RESP 16
--- NOTE | 2024-04-26 14:42 | P.PAINPG ---
PQRS Measure Charge Sheet Comment: A 74 yr old female with a history of severe and chronic neck pain secondary to cervical DDD and spondylosis with facet arthropathy without myelopathy presents today for medication refills. Pain level is provoked at 4 /10 in intensity, constant, localized in the cervical spine, predominantly axial, sharp in character without shooting. Pain is provoked by hyperextension. Pain is alleviated with PT x 2 wks in 2021 which provoked pain, heat, medications, topicals, repositioning and rest. Cervical disability score of 21. Interventional pain procedures completed include cervical TPIs, TOMAS C6-C7 Patient is currently on [place] 5/325mg #30, Flexeril prn Patient denies any side effects of the medication(s), denies excessive drowsiness or sleepiness, denies suicidal ideation and reports that the current pain medication is helping to control the pain and improve activities of daily living. Patient denies any motor or sensory deficits. Patient denies any fever or night sweats, denies any change in the bowel movements or urination. Physical Examination: -Constitutional: Cooperative. Not in acute distress . - Neurologic: Cranial nerve II to XII intact. No focal neurological deficits. - Psychatric: Alert & oriented x 3. Matching mood & appropriate affect. Judgment and insight intact. - Musculoskeletal: Cervical spine: Muscle bulk/ tone/ strength in the bilateral upper extremities normal Vertebral body tenderness to palpation over Spurling test positive Distraction test positive Facet loading test positive TTP Thoracic spine Muscle bulk / tone/ strength in the bilateral paraspinal muscles normal Vertebral body tender to palpation over C5 Facet loading test positive TTP Lumbar spine: Motor bulk/ tone/ strength lower extremities , thigh and legs : 5/5 Deep tendon reflexes : Normal Knee Jerk. Normal Ankle Jerk . Vertebral body tenderness to palpation over Lumbar Facet Loading Test positive Straight Leg Raise: positive at 30 degrees right side/ left side Gaenslen's Test positive Sacral spine : Severe tenderness over the Sacroiliac joint: right side / left side Range of motion: Flexion of the lumbar spine <60 degrees Range of motion: Extension of the lumbar spine <20 degrees Gaenslen's Test positive R / L Adrian test: positive right side / left side Thigh Thrust Test positive R / L Sacral Thrust Test positive R/ L Assessment and plan: Chronic neck pain secondary to cervical DDD, spondylosis with facet arthropathy without myelopathy Chronic and current use of high-risk medication (Opioids). The patient was counseled about risk of opioid use, psychological risk associated with opioids and was orally counseled to not overuse , divert or sell medications. Pt is to store medication in a safe location. The patient is counseled against driving while using narcotic medications and also not to use alcohol or any illicit recreational drugs. Patient verbalized understanding that the lack of compliance will result in failure to renew narcotic prescription(s) as well as possible discharge from the clinic Diagnoses, prognosis and treatment options including but not limited to physical therapy, surgical interventions, interventional therapies and medication management including narcotics and adjuvant medication were discussed. All patient questions answered . Opiate/ Narcotic agreement updated 01/05/24 . MAPS reviewed and it was appropriate. UDS fr 01/05/24 reviewed and consistent . Prescription refill for [place] 5/325mg #30 w 1 RF. Discontinued Flexeril. Robaxin 500mg #90 w 1 RF. I have spent less than 30 minutes on patient care today. Dr Chandler was available by phone for the evaluation of this patient. The time was used to review the medical records including relevant urine studies and Prescription history (MAPs), review of the available imaging, evaluation and examination of the patient, coordination of care with the medical staff and if applicable referring physicians, as well as creation of the medical record PQRS Narrative: Smoking Status Never smoker Narcotic Agreement Date Signed 01/05/24 Hx Alcohol Use (MH) No Home Medications: Ambulatory Orders Enalapril Maleate [Vasotec] 10 mg PO HS 10/26/15 Ipratropium [place] 0.06%Nasal [Atrovent Nasal 0.06%] 2 spray NASAL BID PRN 10/26/15 Mirvaso 1 applicate TOPICAL QAM 10/26/15 Omeprazole [PriLOSEC] 20 mg PO AC-BRKFST 10/26/15 cycloSPORINE [Restasis] 1 drop BOTH EYES BID 10/26/15 Escitalopram [Lexapro] 10 mg PO QAM 07/07/17 Zolpidem Tartrate [Ambien] 2.5 mg PO HS 07/07/17 Alendronate Sodium [Fosamax] 70 mg PO PAULINO 03/28/22 Mesalamine [Pentasa] 500 mg PO BID 05/23/22 metroNIDAZOLE 0.75% CREAM [Metrocream 0.75%] 1 applic TOPICAL HS 07/22/22 Ferrous Sulfate [Slow Fe] 142 mg PO DAILY #30 tab 11/08/22 busPIRone HCl [Buspar] 15 mg PO BID 02/25/23 HYDROcodone/APAP 5-325MG [[place] 5-325] 1 tab PO HS PRN 30 Days #30 tab 04/26/24 HYDROcodone/APAP 5-325MG [[place] 5-325] 1 tab PO HS PRN 30 Days #30 tab 04/26/24 methocarbamoL [Robaxin] 500 mg PO TID PRN 30 Days #90 tab 04/26/24 Controlled Substance Measures - Controlled Substance Measures Is patient prescribed a controlled substance at discharge?: Yes When asked, does pt state using other controlled substances?: Yes If prescribed controlled substance>3 days was MAPS reviewed?: Yes
== END ==
LOC: PNWHC3 10:21
PROVIDERS: ATTEND Specialist
DX: M50.321 Other cervical disc degeneration at C4-C5 level (principal); M47.812 Spondylosis without myelopathy or radiculopathy, cervical region; Z79.891 Long term (current) use of opiate analgesic; Z88.2 Allergy status to sulfonamides
CPT/HCPCS: 99211

== ENCOUNTER → 2024-06-21 | Outpatient (CLI) | payer MEDICARE, BC ==
[2024-06-21 10:35] VITALS: BP 125/66; PULSE 65; RESP 16
--- NOTE | 2024-06-21 14:47 | P.PAINPG ---
Objective - Vital Signs Vital signs: Vital Signs Temp Pulse 65 06/21/24 10:33 Resp 16 06/21/24 10:33 BP 125/66 06/21/24 10:33 Pulse Ox 93 L 06/21/24 10:33 FiO2 Intake & Output 06/20/24 06/21/24 06/21/24 18:59 06:59 18:59 Weight 86.183 kg PQRS Measure Charge Sheet Mode of Arrival: Ambulatory Comment: A 74 yr old female with a history of severe and chronic neck pain secondary to cervical DDD and spondylosis with facet arthropathy without myelopathy presents today for medication refills. Pain level is provoked at 4 /10 in intensity, constant, localized in the L cervical spine, predominantly axial, sharp in character without shooting. Pain is provoked by hyperextension. Pain is alleviated with PT x 2 wks in 2021 which provoked pain, heat, medications, topicals, repositioning and rest. Cervical disability score of 21. Interventional pain procedures completed include cervical TPIs, TOMAS C6-C7 Patient is currently on [place] 5/325mg #30, Flexeril prn Patient denies any side effects of the medication(s), denies excessive drowsiness or sleepiness, denies suicidal ideation and reports that the current pain medication is helping to control the pain and improve activities of daily living. Patient denies any motor or sensory deficits. Patient denies any fever or night sweats, denies any change in the bowel movements or urination. Physical Examination: -Constitutional: Cooperative. Not in acute distress . - Neurologic: Cranial nerve II to XII intact. No focal neurological deficits. - Psychatric: Alert & oriented x 3. Matching mood & appropriate affect. Judgment and insight intact. - Musculoskeletal: Cervical spine: Muscle bulk/ tone/ strength in the bilateral upper extremities normal Vertebral body tenderness to palpation over Spurling test positive Distraction test positive Facet loading test positive TTP Thoracic spine Muscle bulk / tone/ strength in the bilateral paraspinal muscles normal Vertebral body tender to palpation over C5 Facet loading test positive TTP Lumbar spine: Motor bulk/ tone/ strength lower extremities , thigh and legs : 5/5 Deep tendon reflexes : Normal Knee Jerk. Normal Ankle Jerk . Vertebral body tenderness to palpation over Lumbar Facet Loading Test positive Straight Leg Raise: positive at 30 degrees right side/ left side Gaenslen's Test positive Sacral spine : Severe tenderness over the Sacroiliac joint: right side / left side Range of motion: Flexion of the lumbar spine <60 degrees Range of motion: Extension of the lumbar spine <20 degrees Gaenslen's Test positive R / L Adrian test: positive right side / left side Thigh Thrust Test positive R / L Sacral Thrust Test positive R/ L Assessment and plan: Chronic neck pain secondary to cervical DDD, spondylosis with facet arthropathy without myelopathy Chronic and current use of high-risk medication (Opioids). The patient was counseled about risk of opioid use, psychological risk associated with opioids and was orally counseled to not overuse , divert or sell medications. Pt is to store medication in a safe location. The patient is counseled against driving while using narcotic medications and also not to use alcohol or any illicit recreational drugs. Patient verbalized understanding that the lack of compliance will result in failure to renew narcotic prescription(s) as well as possible discharge from the clinic Diagnoses, prognosis and treatment options including but not limited to physical therapy, surgical interventions, interventional therapies and medication management including narcotics and adjuvant medication were d iscussed. All patient questions answered . Opiate/ Narcotic agreement updated 01/05/24 . MAPS reviewed and it was appropriate. UDS fr 01/05/24 reviewed and consistent . Prescription refill for [place] 5/325mg #30 w 1 RF. Discontinued Flexeril. Robaxin 500mg #90 w 1 RF. I have spent less than 30 minutes on patient care today. Dr Chandler was available by phone for the evaluation of this patient. The time was used to review the medical records including relevant urine studies and Prescription history (MAPs), review of the available imaging, evaluation and examination of the patient, coordination of care with the medical staff and if applicable referring physicians, as well as creation of the medical record - Pain Location Left Neck Non-Pharmacological Interventions: Stretching Pharmacological Interventions: Medication, PRN Medication PQRS Narrative: Smoking Status Never smoker Narcotic Agreement Date Signed 01/05/24 Blood Pressure 125/66 Pain Intensity [Left Neck] 4 Scale Used Numeric (1 - 10) Hx Alcohol Use (MH) No Home Medications: Ambulatory Orders Enalapril Maleate [Vasotec] 10 mg PO HS 10/26/15 Ipratropium [place] 0.06%Nasal [Atrovent Nasal 0.06%] 2 spray NASAL BID PRN 10/26/15 Mirvaso 1 applicate TOPICAL QAM 10/26/15 Omeprazole [PriLOSEC] 20 mg PO AC-BRKFST 10/26/15 cycloSPORINE [Restasis] 1 drop BOTH EYES BID 10/26/15 Escitalopram [Lexapro] 10 mg PO QAM 07/07/17 Zolpidem Tartrate [Ambien] 2.5 mg PO HS 07/07/17 Alendronate Sodium [Fosamax] 70 mg PO PAULINO 03/28/22 Mesalamine [Pentasa] 500 mg PO BID 05/23/22 metroNIDAZOLE 0.75% CREAM [Metrocream 0.75%] 1 applic TOPICAL HS 07/22/22 Ferrous Sulfate [Slow Fe] 142 mg PO DAILY #30 tab 11/08/22 busPIRone HCl [Buspar] 15 mg PO BID 02/25/23 HYDROcodone/APAP 5-325MG [[place] 5-325] 1 tab PO HS PRN 30 Days #30 tab 04/26/24 HYDROcodone/APAP 5-325MG [[place] 5-325] 1 tab PO HS PRN 30 Days #30 tab 04/26/24 methocarbamoL [Robaxin] 500 mg PO TID PRN 30 Days #90 tab 04/26/24 Controlled Substance Measures - Controlled Substance Measures Is patient prescribed a controlled substance at discharge?: Yes When asked, does pt state using other controlled substances?: Yes If prescribed controlled substance>3 days was MAPS reviewed?: Yes
== END ==
LOC: PNWHC3 10:21
PROVIDERS: ATTEND Specialist
DX: M50.321 Other cervical disc degeneration at C4-C5 level (principal); M47.812 Spondylosis without myelopathy or radiculopathy, cervical region; Z79.891 Long term (current) use of opiate analgesic; Z88.2 Allergy status to sulfonamides
CPT/HCPCS: 99211

== ENCOUNTER → 2024-08-11 | Outpatient (CLI) | payer MEDICARE, BC ==
[2024-08-11 11:18] VITALS: BP 113/89; PULSE 77; RESP 16; TEMP 97.7
--- NOTE | 2024-08-11 14:43 | P.PAINPG ---
PQRS Measure Charge Sheet Comment: A 74 yr old female with a history of severe and chronic neck pain secondary to cervical DDD and spondylosis with facet arthropathy without myelopathy presents today for medication refills. Pain level is provoked at 4 /10 in intensity, constant, localized in the L cervical spine, predominantly axial, sharp in character without shooting. Pain is provoked by hyperextension. Pain is alleviated with PT x 2 wks in 2021 which provoked pain, heat, medications, topicals, repositioning and rest. Interventional pain procedures completed include cervical TPIs, TOMAS C6-C7 Patient is currently on [place] 5/325mg #30, Robaxin 500mg #90 Patient denies any side effects of the medication(s), denies excessive drowsines s or sleepiness, denies suicidal ideation and reports that the current pain medication is helping to control the pain and improve activities of daily living. Patient denies any motor or sensory deficits. Patient denies any fever or night sweats, denies any change in the bowel movements or urination. Physical Examination: -Constitutional: Cooperative. Not in acute distress . - Neurologic: Cranial nerve II to XII intact. No focal neurological deficits. - Psychatric: Alert & oriented x 3. Matching mood & appropriate affect. Judgment and insight intact. - Musculoskeletal: Cervical spine: Muscle bulk/ tone/ strength in the bilateral upper extremities normal Vertebral body tenderness to palpation over Spurling test positive Distraction test positive Facet loading test positive TTP Thoracic spine Muscle bulk / tone/ strength in the bilateral paraspinal muscles normal Vertebral body tender to palpation over C5 Facet loading test positive TTP Lumbar spine: Motor bulk/ tone/ strength lower extremities , thigh and legs : 5/5 Deep tendon reflexes : Normal Knee Jerk. Normal Ankle Jerk . Vertebral body tenderness to palpation over Lumbar Facet Loading Test positive Straight Leg Raise: positive at 30 degrees right side/ left side Gaenslen's Test positive Sacral spine : Severe tenderness over the Sacroiliac joint: right side / left side Range of motion: Flexion of the lumbar spine <60 degrees Range of motion: Extension of the lumbar spine <20 degrees Gaenslen's Test positive R / L Adrian test: positive right side / left side Thigh Thrust Test positive R / L Sacral Thrust Test positive R/ L Assessment and plan: Chronic neck pain secondary to cervical DDD, spondylosis with facet arthropathy without myelopathy Chronic and current use of high-risk medication (Opioids). The patient was counseled about risk of opioid use, psychological risk associated with opioids and was orally counseled to not overuse , divert or sell medications. Pt is to store medication in a safe location. The patient is counseled against driving while using narcotic medications and also not to use alcohol or any illicit recreational drugs. Patient verbalized understanding that the lack of compliance will result in failure to renew narcotic prescription(s) as well as possible discharge from the clinic Diagnoses, prognosis and treatment options including but not limited to physical therapy, surgical interventions, interventional therapies and medication management including narcotics and adjuvant medication were discussed. All patient questions answered . Opiate/ Narcotic agreement updated 01/05/24 . MAPS reviewed and it was appropriate. UDS collected 08/11/24 . Prescription refill for [place] 5/325mg #30 w 1 RF. Robaxin 500mg #90 w 1 RF. I have spent less than 30 minutes on patient care today. Dr Chandler was available by phone for the evaluation of this patient. The time was used to review the medical records including relevant urine studies and Prescription history (MAPs), review of the available imaging, evaluation and examination of the patient, coordination of care with the medical staff and if applicable referring physicians, as well as creation of the medical record PQRS Narrative: Smoking Status Never smoker Narcotic Agreement Date Signed 01/05/24 Hx Alcohol Use (MH) No Home Medications: Ambulatory Orders Enalapril Maleate [Vasotec] 10 mg PO HS 10/26/15 Ipratropium [place] 0.06%Nasal [Atrovent Nasal 0.06%] 2 spray NASAL BID PRN 10/26/15 Mirvaso 1 applicate TOPICAL QAM 10/26/15 Omeprazole [PriLOSEC] 20 mg PO AC-BRKFST 10/26/15 cycloSPORINE [Restasis] 1 drop BOTH EYES BID 10/26/15 Escitalopram [Lexapro] 10 mg PO QAM 07/07/17 Zolpidem Tartrate [Ambien] 2.5 mg PO HS 07/07/17 Alendronate Sodium [Fosamax] 70 mg PO PAULINO 03/28/22 Mesalamine [Pentasa] 500 mg PO BID 05/23/22 metroNIDAZOLE 0.75% CREAM [Metrocream 0.75%] 1 applic TOPICAL HS 07/22/22 Ferrous Sulfate [Slow Fe] 142 mg PO DAILY #30 tab 11/08/22 busPIRone HCl [Buspar] 15 mg PO BID 02/25/23 methocarbamoL [Robaxin] 500 mg PO TID PRN 30 Days #90 tab 06/21/24 HYDROcodone/APAP 5-325MG [[place] 5-325] 1 tab PO HS PRN 30 Days #30 tab 08/11/24 HYDROcodone/APAP 5-325MG [[place] 5-325] 1 tab PO HS PRN 30 Days #30 tab 08/11/24 Controlled Substance Measures - Controlled Substance Measures Is patient prescribed a controlled substance at discharge?: Yes When asked, does pt state using other controlled substances?: Yes If prescribed controlled substance>3 days was MAPS reviewed?: Yes
== END ==
LOC: PNWHC3 09:44
PROVIDERS: ATTEND Specialist
DX: M50.30 Other cervical disc degeneration, unspecified cervical region (principal); M47.816 Spondylosis without myelopathy or radiculopathy, lumbar region; M47.812 Spondylosis without myelopathy or radiculopathy, cervical region; Z79.891 Long term (current) use of opiate analgesic; Z88.2 Allergy status to sulfonamides
CPT/HCPCS: 80307; 99212

== ENCOUNTER → 2024-08-12 | Outpatient (CLI) | payer MEDICARE, BC ==
--- NOTE | 2024-08-12 16:34 | US ---
EXAMINATION TYPE: US kidneys/renal and bladder DATE OF EXAM: 08/12/2024 COMPARISON: US CLINICAL INDICATION: Female, 74 years old with history of N18.31 Chronic kidney disease; CKD Stage 3a EXAM MEASUREMENTS: Right Kidney: 8.4 x 4.6 x 4.5 cm Left Kidney: 9.1 x 4.4 x 4.4 cm Right Kidney: Small in size, no evidence of hydro, lower pole gassed out cortical medullary differen tiation is maintained. Left Kidney: No evidence of hydro cortical medullary differentiation is maintained. Bladder: wnl Bilateral Jets seen: Only left jet visualized There is no evidence for hydronephrosis at this point in time. No nephrolithiasis is seen. No kaye s are identified. The urinary bladder is anechoic. Bilateral ureteral jets are seen. IMPRESSION: No evidence for obstructive uropathy. [facility], , 08/12/2024 4:32 PM
== END | disposition home or self-care (01) ==
LOC: RADUSWWP 14:43
PROVIDERS: ATTEND Internal Medicine
DX: N18.31 Chronic kidney disease, stage 3a (principal)
CPT/HCPCS: 76770

== ENCOUNTER → 2024-10-06 | Outpatient (CLI) | payer MEDICARE, BC ==
[2024-10-06 10:34] VITALS: BP 134/73; PULSE 73; RESP 16
--- NOTE | 2024-10-06 16:04 | P.PAINPG ---
PQRS Measure Charge Sheet Comment: A 74 yr old female with a history of severe and chronic neck pain secondary to cervical DDD, spondylosis with facet arthropathy without myelopathy presents today for medication refills. Pain level is provoked at 4 /10 in intensity, constant, localized in the L cervical spine, predominantly axial, sharp in c haracter without shooting. Pain is provoked by hyperextension. Pain is alleviated with PT x 2 wks in 2021 which provoked pain, heat, medications, topicals, repositioning and rest. Interventional pain procedures completed include cervical TPIs, TOMAS C6-C7 Patient is currently on Apex 5/325mg #30, Robaxin 500mg #90 Patient denies any side effects of the medication(s), denies excessive drowsiness or sleepiness, denies suicidal ideation and reports that the current pain medication is helping to control the pain and improve activities of daily living. Patient denies any motor or sensory deficits. Patient denies any fever or night sweats, denies any change in the bowel movements or urination. Physical Examination: -Constitutional: Cooperative. Not in acute distress . - Neurologic: Cranial nerve II to XII intact. No focal neurological deficits. - Psychatric: Alert & oriented x 3. Matching mood & appropriate affect. Judgment and insight intact. - Musculoskeletal: Cervical spine: Muscle bulk/ tone/ strength in the bilateral upper extremities normal Vertebral body tenderness to palpation over Spurling test positive Distraction test positive Facet loading test positive TTP Thoracic spine Muscle bulk / tone/ strength in the bilateral paraspinal muscles normal Vertebral body tender to palpation over C5 Facet loading test positive TTP Lumbar spine: Motor bulk/ tone/ strength lower extremities , thigh and legs : 5/5 Deep tendon reflexes : Normal Knee Jerk. Normal Ankle Jerk . Vertebral body tenderness to palpation over Lumbar Facet Loading Test positive Straight Leg Raise: positive at 30 degrees right side/ left side Gaenslen's Test positive Sacral spine : Severe tenderness over the Sacroiliac joint: right side / left side Range of motion: Flexion of the lumbar spine <60 degrees Range of motion: Extension of the lumbar spine <20 degrees Gaenslen's Test positive R / L Adrian test: positive right side / left side Thigh Thrust Test positive R / L Sacral Thrust Test positive R/ L Assessment and plan: Chronic neck pain secondary to cervical DDD, spondylosis with facet arthropathy without myelopathy Chronic and current use of high-risk medication (Opioids). The patient was counseled about risk of opioid use, psychological risk associated with opioids and was orally counseled to not overuse , divert or sell medications. Pt is to store medication in a safe location. The patient is counseled against driving while using narcotic medications and also not to use alcohol or any illicit recreational drugs. Patient verbalized understanding that the lack of compliance will result in failure to renew narcotic prescription(s) as well as possible discharge from the clinic Diagnoses, prognosis and treatment options including but not limited to physical therapy, surgical interventions, interventional therapies and medication management including narcotics and adjuvant medication were discussed. All patient questions answered . Opiate/ Narcotic agreement updated 01/05/24 . MAPS reviewed and it was appropriate. UDS from 08/11/24 reviewed and consistent. Prescription refill for Apex 5/325mg #30 w 2 RF. Discontinue Robaxin 500mg. I have spent less than 30 minutes on patient care today. Dr Chandler was available by phone for the evaluation of this patient. The time was used to review the medical records including relevant urine studies and Prescription history (MAPs), review of the available imaging, evaluation and examination of the patient, coordination of care with the medical staff and if applicable referring physicians, as well as creation of the medical record - Pain Location Bilateral Lower Neck Non-Pharmacological Interventions: Heat, Inactivity Pharmacological Interventions: Epidural, PRN Medication, Scheduled Medication, Topical Medication PQRS Narrative: Smoking Status Never smoker Narcotic Agreement Date Signed 01/05/24 Hx Alcohol Use (MH) No Home Medications: Ambulatory Orders Enalapril Maleate [Vasotec] 10 mg PO HS 10/26/15 Ipratropium [place] 0.06%Nasal [Atrovent Nasal 0.06%] 2 spray NASAL BID PRN 02/05 Mirvaso 1 applicate TOPICAL QAM 10/26/15 Omeprazole [PriLOSEC] 20 mg PO AC-BRKFST 10/26/15 cycloSPORINE [Restasis] 1 drop BOTH EYES BID 10/26/15 Escitalopram [Lexapro] 10 mg PO QAM 07/07/17 Zolpidem Tartrate [Ambien] 2.5 mg PO HS 07/07/17 Alendronate Sodium [Fosamax] 70 mg PO PAULINO 03/28/22 Mesalamine [Pentasa] 500 mg PO BID 05/23/22 metroNIDAZOLE 0.75% CREAM [Metrocream 0.75%] 1 applic TOPICAL HS 07/22/22 Ferrous Sulfate [Slow Fe] 142 mg PO DAILY #30 tab 11/08/22 busPIRone HCl [Buspar] 15 mg PO BID 02/25/23 HYDROcodone/APAP 5-325MG [Apex 5-325] 1 tab PO DAILY PRN 30 Days #30 tab 10/06/24 HYDROcodone/APAP 5-325MG [Apex 5-325] 1 tab PO HS PRN 30 Days #30 tab 10/06/24 HYDROcodone/APAP 5-325MG [Apex 5-325] 1 tab PO HS PRN 30 Days #30 tab 10/06/24 Controlled Substance Measures - Controlled Substance Measures Is patient prescribed a controlled substance at discharge?: Yes When asked, does pt state using other controlled substances?: Yes If prescribed controlled substance>3 days was MAPS reviewed?: Yes
== END ==
LOC: PNWHC3 10:00
PROVIDERS: ATTEND Specialist
DX: M50.30 Other cervical disc degeneration, unspecified cervical region (principal); M47.812 Spondylosis without myelopathy or radiculopathy, cervical region; Z79.891 Long term (current) use of opiate analgesic
CPT/HCPCS: 80307; G0463; 99212

== ENCOUNTER → 2024-11-01 | Outpatient (CLI) | payer MEDICARE, BC ==
[2024-11-01 14:56] LABS: Appearance,Urine Clear (Clear); Bilirubin,Urine Negative (Negative); Blood,Urine Negative (Negative); Color,Urine Colorless; Glucose,Urine (UA) Negative (Negative); Ketones,Urine Negative (Negative); Leukocyte Esterase,Urine Negative (Negative); Nitrite,Urine Negative (Negative); Protein,Urine Negative (Negative); Specific Gravity,Urine 1.007 (1.001-1.035); Urobilinogen,Urine <2.0 mg/dL (<2.0)
[2024-11-01 19:36] LABS: BUN/Creat Ratio 12.91 Ratio (12.00-20.00); Blood Urea Nitrogen 14.2 mg/dL (9.0-27.0); Glucose 110 mg/dL (70-110)
[2024-11-01 19:37] LABS: ALT 21 U/L (8-44); AST 24 U/L (13-35); Albumin 4.4 g/dL (3.8-4.9); Albumin/Globulin Ratio 1.63 Ratio (1.60-3.17); Alkaline Phosphatase 110 U/L (41-126); Calcium 9.5 mg/dL (8.7-10.3); Carbon Dioxide 19.3 mmol/L (21.6-31.8); Chloride 105 mmol/L (96-109); Globulin 2.7 g/dL (1.6-3.3); Magnesium 2.1 mg/dL (1.5-2.4); Phosphorus 3.8 mg/dL (2.4-5.1); Potassium 4.2 mmol/L (3.5-5.5); Sodium 138 mmol/L (135-145); Total Bilirubin 0.3 mg/dL (0.3-1.2); Total Protein 7.1 g/dL (6.2-8.2)
[2024-11-01 19:42] LABS: HCT 37.6 % (37.2-46.3); HGB 12.2 g/dL (12.0-15.0); MCHC 32.4 g/dL (32.0-37.0); MCV 86.4 FL (80.0-97.0); Mean Platelet Volume 10.1 FL (9.5-12.2); NRBC Per 100 WBC 0 X 10*3/uL (0.00-0.01); Platelet Count 261 X 10*3/uL (140-440); RBC 4.35 X 10*6/uL (4.10-5.20); WBC 6.96 X 10*3/uL (4.50-10.00)
[2024-11-01 21:02] LABS: Microalbumin Creatinine Ratio <25 mg/g Cr (0-30); Urine Creatinine 48.7 mg/dL (28.0-217.0)
== END | disposition home or self-care (01) ==
LOC: LABWHC1 13:33
PROVIDERS: ATTEND Internal Medicine
DX: N18.30 Chronic kidney disease, stage 3 unspecified (principal)
CPT/HCPCS: 36415; 80053; 81003; 82043; 82570; 83735; 84100; 85027

== ENCOUNTER → 2024-12-15 | Outpatient (CLI) | payer MEDICARE, BC ==
[2024-12-15 15:31] LABS: ALT 15 U/L (8-44); AST 20 U/L (13-35); Chol/HDL Ratio 2.14 Ratio; LDL Cholesterol,Calculated 86.3 mg/dL (0.0-131.0); VLDL Calculation 16.74 mg/dL (5.00-40.00)
== END | disposition home or self-care (01) ==
LOC: LABWHC1 09:14
PROVIDERS: ATTEND Internal Medicine Interventional Cardiology
DX: E78.2 Mixed hyperlipidemia (principal)
CPT/HCPCS: 36415; 80061; 84450; 84460

== ENCOUNTER → 2025-01-20 | Outpatient (CLI) | payer MEDICARE, BC ==
--- NOTE | 2025-01-20 13:51 | MR ---
MRI CERVICAL SPINE: CLINICAL HISTORY: Radiculopathy and neck pain. TECHNIQUE: Multiplanar, multisequence imaging of the cervical spine is performed without IV contrast. COMPARISON: Cervical spine x-ray December 29, 2024 FINDINGS: Sagittal images of the cervical spine show the craniocervical junction to appear within nor mal limits. The cervical and upper thoracic spinal cord is normal in caliber and signal. There is pe rsistent surgical change from C4 through C7 levels causing susceptibility artifact. Alignment is stra ightened. There is projection efface the anterior thecal sac centered at C4-C5 level correlating with x-ray. The vertebral body heights are satisfactory above and below surgical levels. Incidental small osseous hemangioma superior T2 level sagittal image 7. Axial images show C2-C3 level to appear within normal limits. Axial images of C3-C4 level show artifact, there is left protrusion effacing the anterolateral thecal sac and facet degenerative change causing moderate to severe left-sided neural foraminal narrowing. Images show posterior bony projection efface the anterior thecal sac from C4 through C5 levels. Bilat eral neural foramina are patent at the cervical levels. Axial images at the C7-T1 level appear within normal limits on image 18. IMPRESSION: Postsurgical change C4-C7 level with stable alignment. Posterior bony projection effaces anterior thecal sac at C4-C5 level. Other findings are noted as detailed above. [facility], , 01/20/2025 1:48 PM
== END | disposition home or self-care (01) ==
LOC: RADMRIMAIN 12:29
PROVIDERS: ATTEND Specialist
DX: M47.24 Other spondylosis with radiculopathy, thoracic region (principal); M51.14 Intervertebral disc disorders with radiculopathy, thoracic region
CPT/HCPCS: 72141

== ENCOUNTER → 2025-02-02 | Outpatient (CLI) | payer MEDICARE, BC ==
[2025-02-02 10:51] VITALS: BP 127/79; PULSE 83; RESP 17; TEMP 97.6
--- NOTE | 2025-02-02 15:48 | P.PAINPG ---
PQRS Measure Charge Sheet Comment: A 74 yr old female with a history of severe and chronic neck pain secondary to C4-C7 post laminectomy syndrome presents today for medication refills. Pain level is provoked at 4-6 /10 in intensity, constant, localized in the L cervical spine, predominantly axial, sharp in character without shooting. Pain is provoked by hyperextension. Pain is alleviated with PT x 2 wks in 2021 which provoked pain, heat, medications, topicals, repositioning and rest. Interventional pain procedures completed include cervical TPIs, TOMAS C6-C7 Patient is currently on [place] 5/325mg #30, Robaxin 500mg #90 Patient denies any side effects of the medication(s), denies excessive drowsiness or sleepiness, denies suicidal ideation and reports that the current pain medication is helping to control the pain and improve activities of daily living. Patient denies any motor or sensory deficits. Patient denies any fever or night sweats, denies any change in the bowel movements or urination. Physical Examination: -Constitutional: Cooperative. Not in acute distress . - Neurologic: Cranial nerve II to XII intact. No focal neurological deficits. - Psychatric: Alert & oriented x 3. Matching mood & appropriate affect. Judgment and insight intact. - Musculoskeletal: Cervical spine: Muscle bulk/ tone/ strength in the bilateral upper extremities normal Vertebral body tenderness to palpation over Spurling test positive Distraction test positive Facet loading test positive TTP Thoracic spine Muscle bulk / tone/ strength in the bilateral paraspinal muscles normal Vertebral body tender to palpation over C5 Facet loading test positive TTP Lumbar spine: Motor bulk/ tone/ strength lower extremities , thigh and legs : 5/5 Deep tendon reflexes : Normal Knee Jerk. Normal Ankle Jerk . Vertebral body tenderness to palpation over Lumbar Facet Loading Test positive Straight Leg Raise: positive at 30 degrees right side/ left side Gaenslen's Test positive Sacral spine : Severe tenderness over the Sacroiliac joint: right side / left side Range of motion: Flexion of the lumbar spine <60 degrees Range of motion: Extension of the lumbar spine <20 degrees Gaenslen's Test positive R / L Adrian test: positive right side / left side Thigh Thrust Test positive R / L Sacral Thrust Test positive R/ L Imaging: MRI non contrast cervical spine from 01/20/25 reviewed Assessment and plan: Chronic neck pain secondary to C4-C7 post laminectomy, C4-C5 effacement of the anterior thecal sac Recommendation of Chronic and current use of high-risk medication (Opioids). The patient was counseled about risk of opioid use, psychological risk associated with opioids and was orally counseled to not overuse , divert or sell medications. Pt is to store medication in a safe location. The patient is counseled against driving while using narcotic medications and also not to use alcohol or any illicit recreational drugs. Patient verbalized understanding that the lack of compliance will result in failure to renew narcotic prescription(s) as well as possible discharge from the clinic Diagnoses, prognosis and treatment options including but not limited to physical therapy, surgical interventions, interventional therapies and medication management including narcotics and adjuvant medication were discussed. All patient questions answered . Opiate/ Narcotic agreement updated 01/05/24 . Naproxen 500mg #60 w 2 RF. Use, side effects, adverse reactions, safe storage discussed. MAPS reviewed and it was appropriate. UDS collected 02/02/25. Ample supply of [place] 5/325mg #30 which pt states is ineffective. I have spent less than 30 minutes on patient care today. Dr Chandler was available by phone for the evaluation of this patient. The time was used to review the medical records including relevant urine studies and Prescription history (MAPs), review of the available imaging, evaluation and examination of the patient, coordination of care with the medical staff and if applicable referring physicians, as well as creation of the medical record - Pain Location Neck Non-Pharmacological Interventions: Heat Pharmacological Interventions: Topical Medication PQRS Narrative: Smoking Status Never smoker Narcotic Agreement Date Signed 01/05/24 Hx Alcohol Use (MH) No Home Medications: Ambulatory Orders Enalapril Maleate [Vasotec] 10 mg PO HS 10/26/15 Ipratropium [place] 0.06%Nasal [Atrovent Nasal 0.06%] 2 spray NASAL BID PRN 10/26/15 Mirvaso 1 applicate TOPICAL QAM 10/26/15 Omeprazole [PriLOSEC] 20 mg PO AC-BRKFST 10/26/15 cycloSPORINE [Restasis] 1 drop BOTH EYES BID 10/26/15 Escitalopram [Lexapro] 10 mg PO QAM 07/07/17 Zolpidem Tartrate [Ambien] 2.5 mg PO HS 07/07/17 Alendronate Sodium [Fosamax] 70 mg PO PAULINO 03/28/22 Mesalamine [Pentasa] 500 mg PO BID 05/23/22 metroNIDAZOLE 0.75% CREAM [Metrocream 0.75%] 1 applic TOPICAL HS 07/22/22 Ferrous Sulfate [Slow Fe] 142 mg PO DAILY #30 tab 11/08/22 busPIRone HCl [Buspar] 15 mg PO BID 02/25/23 HYDROcodone/APAP 5-325MG [[place] 5-325] 1 tab PO DAILY PRN 30 Days #30 tab 10/06/24 HYDROcodone/APAP 5-325MG [[place] 5-325] 1 tab PO HS PRN 30 Days #30 tab 10/06/24 HYDROcodone/APAP 5-325MG [[place] 5-325] 1 tab PO HS PRN 30 Days #30 tab 10/06/24 diazePAM [Valium] 5 mg PO DAILY 1 Days #2 tab 12/29/24 Naproxen [Naprosyn] 500 mg PO BID 30 Days #60 tablet 02/02/25 Controlled Substance Measures - Controlled Substance Measures Is patient prescribed a controlled substance at discharge?: No
== END ==
LOC: PNWHC3 10:25
PROVIDERS: ATTEND Specialist
DX: M96.1 Postlaminectomy syndrome, not elsewhere classified (principal); Z79.899 Other long term (current) drug therapy; Z88.2 Allergy status to sulfonamides
CPT/HCPCS: 99212

== ENCOUNTER → 2025-06-23 | Outpatient (CLI) | payer MEDICARE, BC ==
--- NOTE | 2025-06-23 13:47 | US ---
EXAMINATION TYPE: US kidneys/renal and bladder DATE OF EXAM: 06/23/2025 COMPARISON: Renal ultrasound 08/12/2024 CLINICAL INDICATION: Female, 75 years old with history of N18.30 CHRONIC KIDNEY DISEASE, STAGE 3; CKD TECHNIQUE: Grayscale imaging of the bilateral kidneys and urinary bladder: FINDINGS: EXAM MEASUREMENTS: Right Kidney: 8.1 x 4.0 x 4.5 cm Left Kidney: 8.3 x 3.5 x 4.9 cm Right Kidney: small in size, wnl Left Kidney: No hydronephrosis or masses seen Bladder: wnl There is no evidence for hydronephrosis at this point in time. No nephrolithiasis is seen. Corticome dullary differentiation is maintained bilaterally. No masses are identified. The urinary bladder is anechoic. IMPRESSION: No evidence of obstructive uropathy. [facility], , 06/23/2025 1:45 PM
== END | disposition home or self-care (01) ==
LOC: RADUSWWP 13:10
PROVIDERS: ATTEND Internal Medicine
DX: N18.30 Chronic kidney disease, stage 3 unspecified (principal)
CPT/HCPCS: 76770